=== PATIENT | female | born 1960 | race Caucasian/White ===

== ENCOUNTER → 2016-10-21 | Outpatient (CLI) | payer OTHER ==
[2016-10-21 14:36] LABS: BASO % 0.1 %; BASO ABS # 0.01 K/uL (0-0.2); COMPLETE YES; HEMATOCRIT 42.2 % (37-47); IG% 1.3 %; LYMPH % 28.4 %; LYMPH ABS # 1.96 K/uL (1.2-3.4); MEAN CELL VOLUME 84.1 fL (80-100); MEAN CORPUSCULAR HEMOGLOBIN 29.3 pg (25-34); MEAN CORPUSCULAR HGB CONC 34.8 g/dl (32-36); MEAN PLATELET VOLUME 10.3 fL (7.4-10.4); MONO % 8.4 %; NEUT % 61.8 %; PLATELET COUNT 244 K/uL (130-400); RED BLOOD COUNT 5.02 M/uL (4.2-5.4); WHITE BLOOD COUNT 6.91 K/uL (4.8-10.8)
[2016-10-21 15:59] LABS: LYME DISEASE AB IGG NEG (NEG); LYME DISEASE AB IGM EQUIVOCAL (NEG)
[2016-10-24 23:48] LABS: 18KDIGG BAND NONREACTIVE (NONREACTIVE); 23KDIGG BAND NONREACTIVE (NONREACTIVE); 23KDIGM BAND REACTIVE (NONREACTIVE); 28KDIGG BAND NONREACTIVE (NONREACTIVE); 30KDIGG BAND NONREACTIVE (NONREACTIVE); 39KDIGG BAND NONREACTIVE (NONREACTIVE); 39KDIGM BAND NONREACTIVE (NONREACTIVE); 41KDIGG BAND NONREACTIVE (NONREACTIVE); 41KDIGM BAND NONREACTIVE (NONREACTIVE); 45KDIGG BAND NONREACTIVE (NONREACTIVE); 58KDIGG BAND NONREACTIVE (NONREACTIVE); 66KDIGG BAND NONREACTIVE (NONREACTIVE); 93KDIGG BAND NONREACTIVE (NONREACTIVE)
== END | disposition home or self-care (01) ==
LOC: C.LAB1850 12:26
PROVIDERS: ATTEND Family Medicine
DX: E03.9 Hypothyroidism, unspecified (principal); R53.83 Other fatigue; R10.9 Unspecified abdominal pain

== ENCOUNTER → 2016-10-21 | Outpatient (CLI) | payer OTHER ==
[2016-10-21 17:56] LABS: URINE APPEARANCE CLEAR (CLEAR); URINE BILIRUBIN NEG (NEG); URINE COLOR YELLOW; URINE EPITHELIAL CELL AUTO >30 /lpf (0-5); URINE NITRITE NEG (NEG); URINE SPECIFIC GRAVITY 1.016 (1.000-1.030); UROBILINOGEN NEG (NEG)
[2016-10-21 17:58] LABS: MANUAL MICROSCOPIC REQUIRED? NO; REVIEW REQ? NO
== END | disposition home or self-care (01) ==
LOC: C.LABSPEC 16:38
PROVIDERS: ATTEND Family Medicine
DX: R10.9 Unspecified abdominal pain (principal)

== ENCOUNTER → 2016-12-19 | Outpatient (CLI) | payer OTHER ==
[2016-12-19 16:18] LABS: BLOOD UREA NITROGEN 17 mg/dl (7-18); BUN/CREATININE RATIO 20.5 (10-20); CALCIUM 9.6 mg/dl (8.5-10.1); CARBON DIOXIDE 30 mmol/L (21-32); CHLORIDE 102 mmol/L (98-107); CREATININE 0.82 mg/dl (0.60-1.20); GLUCOSE 90 mg/dl (70-99); POTASSIUM 3.8 mmol/L (3.5-5.1); SODIUM 140 mmol/L (136-145)
[2016-12-19 16:28] LABS: C-REACTIVE PROTEIN 0.68 mg/dl (0-0.29); RHEUMATOID FACTOR < 10.0 U/mL (0-15); THYROID STIMULATING HORMONE 0.276 uIu/ml (0.300-4.500)
[2016-12-19 17:25] LABS: LYME DISEASE AB IGG NEG (NEG)
[2016-12-19 17:26] LABS: LYME DISEASE AB IGM EQUIVOCAL (NEG)
[2016-12-24 09:34] LABS: CYCLIC CITRULLINATED PEPT IGG <16 UNITS (<20)
[2016-12-26 05:12] LABS: 18KDIGG BAND REACTIVE (NONREACTIVE); 23KDIGG BAND NONREACTIVE (NONREACTIVE); 23KDIGM BAND REACTIVE (NONREACTIVE); 28KDIGG BAND NONREACTIVE (NONREACTIVE); 30KDIGG BAND NONREACTIVE (NONREACTIVE); 39KDIGG BAND NONREACTIVE (NONREACTIVE); 39KDIGM BAND NONREACTIVE (NONREACTIVE); 41KDIGG BAND NONREACTIVE (NONREACTIVE); 41KDIGM BAND NONREACTIVE (NONREACTIVE); 45KDIGG BAND NONREACTIVE (NONREACTIVE); 58KDIGG BAND NONREACTIVE (NONREACTIVE); 66KDIGG BAND NONREACTIVE (NONREACTIVE); 93KDIGG BAND NONREACTIVE (NONREACTIVE)
== END | disposition home or self-care (01) ==
LOC: C.LAB1850 14:52
PROVIDERS: ATTEND Family Medicine
DX: I10 Essential (primary) hypertension (principal); E03.9 Hypothyroidism, unspecified; R53.83 Other fatigue; M79.606 Pain in leg, unspecified

== ENCOUNTER → 2017-04-08 | Outpatient (CLI) | payer OTHER ==
[~2017-04-08] MED LIST: AMLO-110 PO; HYDR12.55 PO; LEVO125T5 PO; METO-478 PO; VENL75TA4 PO
== END | disposition home or self-care (01) ==
LOC: C.PAPS 18:10
PROVIDERS: ATTEND Obstetrics & Gynecology
DX: Z12.4 Encounter for screening for malignant neoplasm of cervix (principal)

== ENCOUNTER 2017-09-05 17:34 | Emergency (ER) | payer OTHER ==
[~2017-09-05] VITALS: Ht 157.5 cm; Wt 105.4 kg
[2017-09-05 17:42] VITALS: TEMP 36.9; Ht 157.5 cm; Wt 105.4 kg
[2017-09-05] MEDS ORDERED: KETOROLAC TROMETHAMINE 30 MG/ML VIAL IV STA (18:11)
--- NOTE | 2017-09-05 18:28 | EMERGENCY ROOM VISIT NOTE ---
History Report prepared by Uday: Sommer Blevins Under the Supervision of: Dr. David Chavez M.D. First contact with patient: 18:05 Chief Complaint: ARM PAIN Stated Complaint: L ARM PAIN History of Present Illness The patient is a 56 year old female who presents to the Emergency Room with complaints of constant left arm pain beginning 1 month ago. The patient states that 2 weeks ago her pain worsened and in the last 2 days it has worsened further. She reports that she has not seen her PCP or been evaluated for the pain. She notes that 1 month ago she had a flu shot, mammogram, and CPR certification that may have triggered her pain. The patient states that her pain is worsened with movement in certain directions. She denies any chest pain , shortness of breath, cough, congestion, fever, chills, nausea, vomiting. The patient states that she takes Advil every 4 hours and last took it last night. She denies any cardiac history and notes that she is a former smoker. The patient states that she has no history of blood clots. Source of History: patient Onset: 1 month ago Position: arm (left) Timing: constant Modifying Factors (Worsening): movement Associated Symptoms: No fevers, No chills, No cough, No chest pain, No SOB, No nausea, No vomiting Review of Systems See HPI for pertinent positives and negatives. A total of ten systems were reviewed and were otherwise negative. Past Medical & Surgical Medical Problems: (1) HTN (hypertension) Family History No pertinent family history stated. Social History Smoking Status: Never Smoker Marital Status: Housing Status: lives with family Current/Historical Medications Scheduled Amlodipine (Norvasc), 5 MG PO QAM Hydrochlorothiazide (Hydrochlorothiazide), 12.5 MG PO QAM Levothyroxine Sodium (Levothyroxine Sodium), 125 MCG PO QAM Metoprolol Succinate (Toprol Xl), 25 MG PO QPM Venlafaxine Hcl (Effexor), 75 MG PO QPM Allergies Coded Allergies: No Known Allergies (Unverified , 09/05/17) Physical Exam Vital Signs Date Time Temp Pulse Resp B/P (MAP) Pulse Ox O2 Delivery O2 Flow Rate FiO2 09/05/17 21:50 79 18 166/103 97 09/05/17 19:48 78 17 150/92 94 09/05/17 19:11 66 09/05/17 18:49 96 09/05/17 17:42 36.9 93 18 156/104 92 Room Air Physical Exam GENERAL: Awake, alert, well-appearing, in no distress HENT: Normocephalic, atraumatic. Oropharynx unremarkable. EYES: Normal conjunctiva. Sclera non-icteric. NECK: Supple. No nuchal rigidity. FROM. No JVD. RESPIRATORY: Clear to auscultation. CARDIAC: Regular rate, normal rhythm. Extremities warm and well perfused. Pulses equal. ABDOMEN: Soft, non-distended. No tenderness to palpation. No rebound or guarding. No masses. RECTAL: Deferred. MUSCULOSKELETAL: Chest examination reveals no tenderness. The back is symmetrical on inspection without obvious abnormality. There is no CVA tenderness to palpation. No joint edema. mild tenderness to the left lateral deltoid, along the supraspinatus tendon she has increased pain with active ROM against resistance and minimal pain with passive ROM, distal PMS intact. LOWER EXTREMITIES: Calves are equal size bilaterally and non-tender. No edema. No discoloration. NEURO: Normal sensorium. No sensory or motor deficits noted. SKIN: No rash or jaundice noted. Medical Decision & Procedures ER Provider Diagnostic Interpretation: Radiology results as stated below per my review and radiologist interpretation: LEFT UPPER EXTREMITY VENOUS DOPPLER FINDINGS: The left internal jugular vein is patent. There is normal flow within the left subclavian vein. There is normal flow and compressibility within the left axillary, basilic, brachial, radial, ulnar, and visualized cephalic veins. IMPRESSION: No DVT within the left upper extremity. Electronically signed by: Gary Hickey M.D. 09/05/2017 9:02 PM Dictated Date/Time: 09/05/2017 9:00 PM CHEST ONE VIEW PORTABLE FINDINGS: The lungs are clear. Cardiac silhouette is borderline enlarged. No pleural effusions. No pneumothorax. IMPRESSION: Borderline enlargement cardiac silhouette. Otherwise, no acute process within the chest. Electronically signed by: Gary Hickey M.D. 09/05/2017 7:07 PM Dictated Date/Time: 09/05/2017 7:06 PM LEFT SHOULDER 3 VIEWS FINDINGS: There is no fracture or dislocation. A few small foci of calcification the distal supraspinatus tendon. The left clavicle is intact. IMPRESSION: No fracture or dislocation within the left shoulder. Supraspinatus calcific tendinitis. Electronically signed by: Gary Hickey M.D. 09/05/2017 7:44 PM Dictated Date/Time: 09/05/2017 7:43 PM Laboratory Results 09/05/17 18:40 Red Blood Count 4.92, Mean Corpuscular Volume 84.8, Mean Corpuscular Hemoglobin 30.1, Mean Corpuscular Hemoglobin Concent 35.5, Mean Platelet Volume 9.7, Neutrophils (%) (Auto) 59.6, Lymphocytes (%) (Auto) 28.4, Monocytes (%) (Auto) 10.0, Eosinophils (%) (Auto) 0.1, Basophils (%) (Auto) 0.1, Neutrophils # (Auto ) 5.18, Lymphocytes # (Auto) 2.47, Monocytes # (Auto) 0.87, Eosinophils # (Auto ) 0.01, Basophils # (Auto) 0.01 09/05/17 18:40 Test 09/05/17 18:40 White Blood Count 8.70 K/uL (4.8-10.8) Red Blood Count 4.92 M/uL (4.2-5.4) Hemoglobin 14.8 g/dL (12.0-16.0) Hematocrit 41.7 % (37-47) Mean Corpuscular Volume 84.8 fL (80-100) Mean Corpuscular Hemoglobin 30.1 pg (25-34) Mean Corpuscular Hemoglobin Concent 35.5 g/dl (32-36) Platelet Count 232 K/uL (130-400) Mean Platelet Volume 9.7 fL (7.4-10.4) Neutrophils (%) (Auto) 59.6 % Lymphocytes (%) (Auto) 28.4 % Monocytes (%) (Auto) 10.0 % Eosinophils (%) (Auto) 0.1 % Basophils (%) (Auto) 0.1 % Neutrophils # (Auto) 5.18 K/uL (1.4-6.5) Lymphocytes # (Auto) 2.47 K/uL (1.2-3.4) Monocytes # (Auto) 0.87 K/uL (0.11-0.59) Eosinophils # (Auto) 0.01 K/uL (0-0.5) Basophils # (Auto) 0.01 K/uL (0-0.2) RDW Standard Deviation 40.3 fL (36.4-46.3) RDW Coefficient of Variation 13.3 % (11.5-14.5) Immature Granulocyte % (Auto) 1.8 % Immature Granulocyte # (Auto) 0.16 K/uL (0.00-0.02) Anion Gap 8.0 mmol/L (3-11) Est Creatinine Clear Calc Drug Dose 111.5 ml/min Estimated GFR () 115.8 Estimated GFR (Non- 99.9 BUN/Creatinine Ratio 18.8 (10-20) Calcium Level 9.0 mg/dl (8.5-10.1) Total Bilirubin 0.6 mg/dl (0.2-1) Direct Bilirubin 0.1 mg/dl (0-0.2) Aspartate Amino Transf (AST/SGOT) 21 U/L (15-37) Alanine Aminotransferase (ALT/SGPT) 35 U/L (12-78) Alkaline Phosphatase 95 U/L (45-117) Troponin I < 0.015 ng/ml (0-0.045) Total Protein 7.8 gm/dl (6.4-8.2) Albumin 3.6 gm/dl (3.4-5.0) Lipase 166 U/L (73-393) Laboratory results reviewed by me Medications Administered Medications (Trade) Dose Ordered Sig/Fawad Route Start Time Stop Time Status Last Admin Dose Admin Ketorolac Tromethamine (Toradol Inj) 30 mg NOW STAT IV 09/05/17 18:11 09/05/17 18:18 DC 09/05/17 18:11 30 MG ECG Indication: other (arm pain) Rate (beats per minute): 81 Rhythm: normal sinus Findings: no acute ischemic change, other (normal intervals) ED Course 1804: The patient was evaluated in room A4. A complete history and physical exam was performed. 1810: Toradol Inj 30mg IV. 2140: I reevaluated and updated the patient. 2151: I reevaluated the patient. Discussed results and discharge instructions: She verbalized understanding and agreement. The patient is ready for discharge. Medical Decision I reviewed the patient's past medical history, medications, and the nursing notes as described above. The patient's presentation and history were concerning for ACS, musculoskeletal strain, DVT, arthritis. The patient is a 56 y/o woman with a pmhx of HTN, DM who presents to the ED with left shoulder arm pain constant for the last month but worsening over the past week per HPI. On arrival the patient is in NAD, AFVSS. On exam patient has pain with active ROM and minimal with passive ROM. Mild ttp over lateral aspect of deltoid along supraspinatus. EKg unremarkable. Trop negative in the setting of constant sx. Labs otherwise unremarkable. Duplex negative for DVT. Shoulder Xray with calcific tendinitis likely explains patient's sx. Plan for sling for comfort and pcp f/u. Findings and plan for follow-up reviewed with patient. Patient agreeable and d/c'd per discharge instructions. Medication Reconcilliation Current Medication List: was personally reviewed by me Blood Pressure Screening Patient's blood pressure: Elevated blood pressure Blood pressure disposition: Elevated BP felt to be situational Impression Primary Impression: Calcific tendinitis of left shoulder Scribe Attestation The scribe's documentation has been prepared under my direction and personally reviewed by me in its entirety. I confirm that the note above accurately reflects all work, treatment, procedures, and medical decision making performed by me. Departure Information Dispostion Home / Self-Care Referrals Janeth Coello MD (PCP) Patient Instructions ED Tendinitis Calcific, My [facility] Additional Instructions Please follow up with your primary care physician in the next 1-3 days for re- evaluation. You were found to have calcific tendinitis. Otherwise, your exam, EKG, chest xray, ultrasound, and lab results did not show signs of an emergent condition at this time. Ibuprofen and Acetaminophen for pain as needed. Return to the emergency department for worsening symptoms as described in the accompanying instructions.
[2017-09-05] MEDS ORDERED: LEVO125T5 PO (18:30)
[2017-09-05] MEDS ORDERED: AMLO-110 PO (18:30)
[2017-09-05] MEDS ORDERED: METO-478 PO (18:30)
[2017-09-05] MEDS ORDERED: VENL75TA4 PO (18:30)
[2017-09-05] MEDS ORDERED: HYDR12.55 PO (18:30)
[2017-09-05 18:49] VITALS: O2SAT 96
[2017-09-05 18:55] LABS: BASO % 0.1 %; BASO ABS # 0.01 K/uL (0-0.2); COMPLETE YES; EOS % 0.1 %; HEMATOCRIT 41.7 % (37-47); IG% 1.8 %; LYMPH % 28.4 %; LYMPH ABS # 2.47 K/uL (1.2-3.4); MEAN CELL VOLUME 84.8 fL (80-100); MEAN CORPUSCULAR HEMOGLOBIN 30.1 pg (25-34); MEAN CORPUSCULAR HGB CONC 35.5 g/dl (32-36); MEAN PLATELET VOLUME 9.7 fL (7.4-10.4); NEUT % 59.6 %; PLATELET COUNT 232 K/uL (130-400); RED BLOOD COUNT 4.92 M/uL (4.2-5.4)
--- NOTE | 2017-09-05 19:08 | DIAGNOSTIC IMAGING REPORT ---
CHEST ONE VIEW PORTABLE HISTORY: Atypical CHEST PAIN COMPARISON: None. FINDINGS: The lungs are clear. Cardiac silhouette is borderline enlarged. No pleural effusions. No pneumothorax. IMPRESSION: Borderline enlargement cardiac silhouette. Otherwise, no acute process within the chest. Electronically signed by: Gary Hickey M.D. 09/05/2017 7:07 PM Dictated Date/Time: 09/05/2017 7:06 PM
[2017-09-05 19:12] LABS: ALT/SGPT 35 U/L (12-78); AST/SGOT 21 U/L (15-37); BLOOD UREA NITROGEN 12 mg/dl (7-18); BUN/CREATININE RATIO 18.8 (10-20); CARBON DIOXIDE 27 mmol/L (21-32); CHLORIDE 104 mmol/L (98-107); CREATININE 0.65 mg/dl (0.60-1.20); GLUCOSE 99 mg/dl (70-99); POTASSIUM 3.5 mmol/L (3.5-5.1); SODIUM 139 mmol/L (136-145)
[2017-09-05 19:17] LABS: ALKALINE PHOSPHATASE 95 U/L (45-117)
--- NOTE | 2017-09-05 19:46 | DIAGNOSTIC IMAGING REPORT ---
LEFT SHOULDER 3 VIEWS HISTORY: left shoulder pain COMPARISON: None. FINDINGS: There is no fracture or dislocation. A few small foci of calcification the distal supraspinatus tendon. The left clavicle is intact. IMPRESSION: No fracture or dislocation within the left shoulder. Supraspinatus calcific tendinitis. Electronically signed by: Gary Hickey M.D. 09/05/2017 7:44 PM Dictated Date/Time: 09/05/2017 7:43 PM
--- NOTE | 2017-09-05 21:03 | DIAGNOSTIC IMAGING REPORT ---
LEFT UPPER EXTREMITY VENOUS DOPPLER HISTORY: left upper arm pain COMPARISON STUDY: None. FINDINGS: The left internal jugular vein is patent. There is normal flow within the left subclavian vein. There is normal flow and compressibility within the left axillary, basilic, brachial, radial, ulnar, and visualized cephalic veins. IMPRESSION: No DVT within the left upper extremity. Electronically signed by: Gary Hickey M.D. 09/05/2017 9:02 PM Dictated Date/Time: 09/05/2017 9:00 PM
[2017-09-05 21:50] VITALS: BP 166/103; PULSE 79; O2SAT 97
== END 2017-09-05 21:50 | disposition home or self-care (01) ==
LOC: C.EDB 17:35 → C.EDA 21:50
DX: M75.32 Calcific tendinitis of left shoulder (principal); I10 Essential (primary) hypertension; Z79.899 Other long term (current) drug therapy

== ENCOUNTER → 2018-01-12 | Outpatient (CLI) | payer OTHER | END | disposition home or self-care (01) | LOC: C.LAB1850 07:00 | PROVIDERS: ATTEND Family Medicine | DX: I10 Essential (primary) hypertension (principal); E03.9 Hypothyroidism, unspecified; R73.01 Impaired fasting glucose; E55.9 Vitamin D deficiency, unspecified ==

== ENCOUNTER → 2018-05-27 | Outpatient (CLI) | payer OTHER ==
[~2018-05-27] MED LIST changes: -AMLO-110 PO; +AMLO5TAB3 PO
[2018-05-27 10:35] LABS: BLOOD UREA NITROGEN 16 mg/dl (7-18); CALCIUM 9.2 mg/dl (8.5-10.1); CARBON DIOXIDE 25 mmol/L (21-32); CHOLESTEROL 163 mg/dl (0-200); CREATININE 0.74 mg/dl (0.60-1.20); GLUCOSE 138 mg/dl (70-99); LDL CHOLESTEROL CALCULATED 83 mg/dl; POTASSIUM 3.7 mmol/L (3.5-5.1); SODIUM 137 mmol/L (136-145)
== END | disposition home or self-care (01) ==
LOC: C.LAB1850 07:56
PROVIDERS: ATTEND Family Medicine
DX: I10 Essential (primary) hypertension (principal); E03.9 Hypothyroidism, unspecified; R73.01 Impaired fasting glucose; E55.9 Vitamin D deficiency, unspecified

== ENCOUNTER 2021-02-19 11:24 | Inpatient (IN) ==
[2021-02-19 12:11] LABS: Basophils # (auto) 0.03 K/uL (0-0.2); Basophils % (auto) 0.3 %; Eosinophils # (auto) 0.18 K/uL (0-0.5); Eosinophils % (auto) 1.6 %; Hematocrit (blood only) 34.9 % (37-47); Hemoglobin 11.8 g/dL (12.0-16.0); Immature Granulocytes # (auto) 0.28 K/uL (0.00-0.02); Immature Granulocytes % (auto) 2.4 %; Lymphocytes % (auto) 7.8 %; Mean Corpuscular Hemoglobin 28.9 pg (25-34); Mean Corpuscular Hgb Conc 33.8 g/dL (32-36); Mean Corpuscular Volume 85.3 fL (80-100); Mean Platelet Volume 9.3 fL (7.4-10.4); Monocytes # (auto) 0.42 K/uL (0.11-0.59); Monocytes % (auto) 3.6 %; Neutrophils # (auto) 9.73 K/uL (1.4-6.5); Neutrophils % (auto) 84.3 %; Platelet Count 451 K/uL (130-400); RDW Coefficient of Variation 13.4 % (11.5-14.5); RDW Standard Deviation 41.8 fL (36.4-46.3); Red Blood Count 4.09 M/uL (4.2-5.4); White Blood Count 11.54 K/uL (4.8-10.8)
[2021-02-19] MEDS ORDERED: PIPERACILL/TAZOBAC CONSULT ACTIVE PRN (12:15)
--- NOTE | 2021-02-19 12:17 | History & Physical Report ---
Date of Service February 19, 2021 Assessment & Plan (1) Post-operative pain: (2) Pelvic pain: (3) Abnormal finding on imaging: Postop 3 wks with continued collection at cuff, measured by us today to be 7.9 x 5 x 6cm by US Directly at cuff. Given temps, unwell, despite po antibiotics, I feel it is time to rec drainage of collection. Can opt to do here with EUA as I do not feel patient with tolerate office procedure and she agrees. Alternative to send to tertiary care center to see if IR can help with drainage. Given location I do feel access is possible vaginally and ultimately pt elects to stay here to have done. We would then cont iv abx and look for improvement. May need future transfer to tertiary care or more treatment. Given recent CT, i do not suspect bowel perforation or urinary tract injury or worsening picture for urinary tract. I supect her sx are due to undrained abscess that needs drainage. Has been on outpt oral antibiotics and not responding. Patient verbalized understanding. I do not feel repeat CT would be useful at this point given we already have location of collection and she is not exhibiting signs or sx that more is going on in upper belly, with bowels etc. She agrees. She does not want CT. Will send to hospital and d/w Dr. Lancaster who is senior formulation scientist. Plan to get labs, vs and keep NPO but planned EUA. Patient agreeable. I suspect with plan drainage of cuff abscess under anesthesia and see if US can be present for guidance. Admission and Anticipated Discharge Date Admission Date: February 19, 2021 History of Present Illness Chief Complaint: fever, pain Primary Care Provider: Aram Howard MD 60yo with cc of postoperative state from TL 3wks ago with fever and vaginal pain and nausea. Patient was seen in office this am. Her course includes TLH, requiring indwelling left ureteral stent due to incidental ureteral stricture found at time of cystoscopy done for h/o TLH. The stent was irriating to patient such that she presented to ER about 10d postop. She had urine studies, labs with wbc 15, 000 and given antibiotics and sent home. I saw her at 2wks postop(3d after ER visit) still not feeling well. Low grade temps and had wbc 10, 000 and bothered by bladder pain and we planned CT scan. Was seeing urology for followup the next day with hopes to get stent removed to see if that improved her bladder pressure and flank pain. She did get stent removed and had cysto with Dr. Staton on 02/14/21 and by next day was feeling better. She still had some flank soreness but the bladder pressure was gone and did not feel ill. She had a CT that am, per the plan 2d prior which did show a cuff collection suspicious for abscess but she was clinically feeling better. No vaginal drainage. She was afebrile. She had been examined on 02/13 with no vaginal discharge or drainage and no significant cuff tenderness. After counseling about all, including collaborating with radiology and urology, options at that time were to drain ? collection vs. cont antibiotics and see how she did. She opted for latter and on02/16/21 she reported doing well, was taking her temp bid and no fever and no pain or pressure. Voiding, eating well, did not like nausea with dosing of her antibiotics but otherwise ok. Plan was for repeat labs this am and visit this pm in office. Unfortunately early this am, called office with above cc. She did not have labs. She was advised to come immediately to office for evaluation. She really wanted to avoid the ER if possible due to past experience not being good with evaluating doctor in ER. She notes began feeling unwell friday afternoon. She began with nausea and anorexia since then, last eating noon yesterday. No vomiting. +flatus. feels thirsty. denies vaginal drainage, some pink spotting. Has pressure or pain in pelvis and this am temp 102F. She is voiding well, no flank pain. Can ambulate normally, drove herself here and gets on and off table with no issue. Temp in office was 99F and no recent anti-pyretic meds. All Active Problems (Updated 02/19/21 @ 12:17 by Aure Rollins MD, FACOG) Abnormal finding on imaging Pelvic pain Sensation of pressure in bladder area Post-operative pain UTI (urinary tract infection) (Acute) Encounter for pre-operative examination Dysplasia of cervix, low grade (BOUCHRA 1) HTN (hypertension) (Chronic) Health care maintenance Vitamin D deficiency disease (Acute) Recurrent periodic urticaria (Acute) Premature ventricular contractions (Acute) Metabolic disorder (Acute) Impaired fasting glucose (Acute) Hypothyroidism (Acute) Kidney cysts Liver cyst Calcification of coronary artery (Acute) Gout Hyperglycemia Left foot pain Swelling of left foot Subchondral cyst Abnormal finding on imaging Gait disturbance Suspected 2019 novel coronavirus infection Encounter for annual routine gynecological examination Low back pain High grade squamous intraepithelial cervical dysplasia Family history of uterine fibroid Allergies Allergy/AdvReac Type Severity Reaction Status Date / Time No Known Allergies Allergy Verified 02/19/21 09:53 Home Medications Medication Instructions Recorded Confirmed Type trazodone 50 mg tablet 50 mg PO HS PRN #90 tab 02/21/20 02/19/21 Rx bupropion HCl 150 mg 24 hr tablet, 150 mg PO QAM #90 tab 08/14/20 02/19/21 Rx extended release allopurinol 100 mg PO QAM 01/12/21 02/19/21 History amlodipine 2.5 mg PO QAM 01/12/21 02/19/21 History hydrochlorothiazide 25 mg PO QAM 01/12/21 02/19/21 History levothyroxine 150 mcg PO DAILY 01/12/21 02/19/21 History metoprolol succinate 25 mg PO HS 01/12/21 02/19/21 History oxycodone-acetaminophen [Percocet] 1 tab PO Q4H PRN #14 tab 01/29/21 02/19/21 Rx ciprofloxacin HCl 500 mg tablet 500 mg PO BID #28 tab 02/15/21 02/19/21 Rx ondansetron HCl 4 mg tablet 4 mg PO Q8H PRN #30 tab 02/15/21 02/19/21 Rx meloxicam 7.5 mg tablet 7.5 mg PO DAILY PRN #30 tab 02/19/21 Rx Patient History Medical History (Updated 02/19/21 @ 15:15 by Gary Wade MD) Anxiety Depression Gout History of COVID-19 09/08/2020 tested [facility], SOB muscle body ache, fatigue, cough, headaches, hair loss. Hypertension Hypothyroidism Morbid obesity Osteoarthritis Prediabetes watches diet PVC (premature ventricular contraction) takes metoprolol Surgical History H/O tooth extraction wisdom teeth History of tubal ligation Hx of cholecystectomy Family History Brother Stroke Diabetes Mother Diabetes Hypertension Rheumatoid arthritis Stroke Father Pulmonary embolism Denies family history of Ovarian cancer Prostate cancer Myocardial infarction Breast cancer Colorectal cancer Social History Smoking Status: Former smoker Smoking End Date: 20 years ago; Number of Years Since Quit: 18; Second Hand Exposure: No; Do You Dip or Chew Tobacco: No; Tobacco Cessation Education Requested by Patient: No (N/A) Hx Alcohol Use: No Hx Substance Use: No Preferred Language: Cymraes Communication Ability: Effective Visual Impairment: No Limitations Hearing Ability: Normal Ticket Scheduler Required: No Beliefs That Will Affect Care: None marital status: Current Living Situation: Spouse current occupational status: employed 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, [employer] Other Information That Helps Us Care for You: No Feels Safe at Home: Yes Safety Concerns: Feels Safe At This Time Dental Care, Regularly: Yes Physical Activity Frequency: 1-2 Times per Week Seatbelt Use: always Assistive Devices: None Review of Systems + fever and + malaise + nausea; no change in stools no dysuria, no urinary frequency and no vaginal discharge Physical Exam Constitutional: WD/WN, vitals as above Gastrointestinal (Abdomen): Inspection/Auscultation: + abdominal surgical incision (well healed) Percussion/Palpation: abdomen soft; abdomen nontender and no guarding Neurologic: grossly normal Psychiatric: A+Ox3, euthymic affect Genitourinary: normal external appearance; no CVA tenderness Speculum/Bim anual Exam: normal appearance of the vagina (no drainage, cuff intact. ) vagina slightly tender at cuff by palpation and tissue indurated. Coding Level of Care Code None Diagnoses Post-operative pain G89.18 Pelvic pain R10.2 Abnormal finding on imaging R93.89
[2021-02-19] MEDS ORDERED: PATIENT'S HEIGHT AND/OR WEIGHT NEEDED SCH (12:30)
[2021-02-19 12:45] LABS: Alanine Aminotransferase 33 U/L (12-78); Albumin Level 2.6 gm/dl (3.4-5.0); Aspartate Aminotransferase 44 U/L (15-37); BUN Creatinine Ratio 13.6 (10-20); Blood Urea Nitrogen 13 mg/dl (7-18); Calcium 9.6 mg/dl (8.5-10.1); Carbon Dioxide 22 mmol/L (21-32); Chloride 103 mmol/L (98-107); Est GFR (African American) 72.3; Est GFR (Non-African American) 62.4; Glucose 114 mg/dl (70-99); Potassium 3.6 mmol/L (3.5-5.1); Sodium 135 mmol/L (136-145)
[2021-02-19] MEDS ORDERED: PIPERACILLIN/TAZOBACTAM 4.5 GM in DEXTROSE 5% 100 ML IV ONE (12:45)
[2021-02-19] MEDS ORDERED: KETOROLAC 30 MG/ML VIAL IV PRN (12:46)
[2021-02-19 12:48] LABS: Albumin Globulin Ratio 0.4 (0.9-2); Alkaline Phosphatase 217 U/L (45-117); Bilirubin,Total 0.6 mg/dl (0.2-1); Globulin 5.8 gm/dl (2.5-4.0); Total Protein 8.4 gm/dl (6.4-8.2)
[2021-02-19] MEDS: ONDANSETRON INJ 2 MG/ML 2 ML VIAL IV PRN ×2 (13:11→23:11)
[2021-02-19] MEDS: ACETAMINOPHEN 500 MG TAB PO PRN ×2 (13:12→23:32)
[2021-02-19 13:15] LABS: Appearance Urine Clear (Clear); Bacteria Urine Automated Negative (Negative); Bilirubin Urine Negative (Negative); Blood Urine 3+ (Negative); Color Urine Dark Yellow; Epithelial Cell Urine Auto >30 /lpf (0-5); Glucose Urine UA Negative (Negative); Ketones Urine 3+ (Negative); Leukocyte Esterase Urine Trace (Negative); Nitrite Urine Negative (Negative); Protein Urine 1+ (Negative); RBC Urine Automated >30 /hpf (0-4); Specific Gravity Urine 1.024 (1.000-1.030); Urobilinogen Urine Negative (Negative); WBC Urine Automated >30 /hpf (0-5)
[2021-02-19] MEDS: SODIUM CHLORIDE 0.9% 1000ML 1,000 ML IV SCH (13:16)
[2021-02-19] MEDS: amLODIPine BESYLATE 5 MG TAB PO SCH (13:30)
--- NOTE | 2021-02-19 14:32 | Gynecologic Progress Note ---
Date of Service February 19, 2021 Assessment & Plan Admission and Anticipated Discharge Date Admission Date: February 19, 2021 Subjective Patient admitted via direct-admit from office after seeing Dr Rollins in office today. I discussed proposed plan of care with patient: surgical exam under anesthesia, drainage of vaginal cuff abscess. Will plan for ultrasound guidance and will plan to likely pack abscess area afterwards. She is agreeable to procedure, and we reviewed consent line by line. She is aware of the possible risk of damage to surrounding organs/tissue, need for further surgery. IV access obtained, IV fluids, NPO. IV Zosyn for broad-spectrum coverage. Blood cultures, urine culture ordered. While patient has already been on antibiotics, since she is also presenting with fever, and fever is likely related to her cuff abscess, will look for these sources of infection also. CBC, CMP. IV toradol and one dose PO tylenol for pain and fever. Patient would like to avoid narcotics, as she finds them constipating. I discussed her home meds with anesthesia, will give amlodipine, as she did not take this today yet and BP on arrival was elevated. Hold other home meds for now. Results & Data ([facility]) Vital Signs (Past 12 Hours) Vital Signs Temp Pulse Pulse Pulse Resp BP BP 02/19/21 14:05 38.2 C H 90 18 125/75 02/19/21 12:14 39.1 C H 96 H 106 H 24 179/95 H Pulse Ox 02/19/21 14:05 94 02/19/21 12:14 93
[2021-02-19] MEDS ORDERED: PROPOFOL IV EMULSION 10 MG/ML 20 ML VIAL IV ONE (15:34)
[2021-02-19] MEDS ORDERED: SUCCINYLCHOLINE CHLORIDE 20 MG/ML 10 ML VIAL IV ONE (15:34)
[2021-02-19] MEDS ORDERED: LIDOCAINE 2% 2 ML VIAL/AMP(20MG/ML) INFIL ONE (15:34)
[2021-02-19] MEDS ORDERED: ROCURONIUM BROMIDE 10 MG/ML 5 ML VIAL IV ONE (15:34)
[2021-02-19] MEDS ORDERED: fentaNYL citrate 100 MCG/2 ML VIAL ONE ×2 (15:35→16:27)
[2021-02-19] MEDS ORDERED: MIDAZOLAM HCL 1 MG/ML 2ML VIAL ONE (15:38)
[2021-02-19] MEDS ORDERED: PHENYLEPHRINE HCL 10 MG/ML VIAL ONE (15:43)
[2021-02-19] MEDS ORDERED: ePHEDrine sulfate 50 MG/ML AMP ONE (15:43)
[2021-02-19] MEDS ORDERED: PREMARIN VAG CRM 14 APPLN/30 GM TUBE ONE (16:02)
--- NOTE | 2021-02-19 16:11 | Anesthesiology Consultation ---
Date of Service February 19, 2021 Assessment & Plan (1) Encounter for pre-operative examination: Chart Review Chart Review: Acceptable Risk for Surgery and Patient NOT seen in Pre Admission Testing Consults Requested none History Surgery Operation Date: 02/19/21 09:20 Proposed Procedures p Evaluation Under Anesthesia, Drainage of Vaginal Cuff Abscess - Tanya Lancaster DO Height/Weight Height: 5 ft 2 in Weight: 99.55 kg Allergies Allergy/AdvReac Type Severity Reaction Status Date / Time No Known Allergies Allergy Verified 02/19/21 09:53 Medications Home Medications Medication Instructions Recorded Confirmed Last Taken trazodone 50 mg tablet 50 mg PO HS PRN #90 tab 02/21/20 02/19/21 01/28/21 bupropion HCl 150 mg 24 hr tablet, 150 mg PO QAM #90 tab 08/14/20 02/19/21 02/18/21 19:00 extended release 150 MG allopurinol 100 mg PO QAM 01/12/21 02/19/21 02/18/21 19:00 100 mg amlodipine 2.5 mg PO QAM 01/12/21 02/19/21 02/18/21 19:00 2.5 mg hydrochlorothiazide 25 mg PO QAM 01/12/21 02/19/21 01/28/21 levothyroxine 150 mcg PO DAILY 01/12/21 02/19/21 02/18/21 19:00 150 mcg metoprolol succinate 25 mg PO HS 01/12/21 02/19/21 02/18/21 19:00 oxycodone-acetaminophen [Percocet] 1 tab PO Q4H PRN #14 tab 01/29/21 02/19/21 Unknown ciprofloxacin HCl 500 mg tablet 500 mg PO BID #28 tab 02/15/21 02/19/21 02/18/21 19:00 500 mg ondansetron HCl 4 mg tablet 4 mg PO Q8H PRN #30 tab 02/15/21 02/19/21 Unknown meloxicam 7.5 mg tablet 7.5 mg PO DAILY PRN #30 tab 02/19/21 Unknown Active Medications Generic Name Dose Route Start Last Admin Trade Name Freq PRN Reason Stop Dose Admin Acetaminophen 1,000 mg 02/19/21 12:46 02/19/21 13:12 Acetaminophen 500 Mg Tab PO 03/21/21 12:45 1,000 mg Q6H PRN Administration Pain Amlodipine Besylate 2.5 mg 02/19/21 13:00 02/19/21 13:30 Amlodipine Besylate 5 Mg Tab PO 03/21/21 12:59 2.5 mg QAM JU Administration Sodium Chloride 1,000 mls @ 125 mls/hr 02/19/21 12:15 02/19/21 15:35 Nss 1000ml IV 03/21/21 12:14 0 mls/hr .Q8H JU Infusion Ketorolac Tromethamine 30 mg 02/19/21 12:46 02/19/21 13:11 Ketorolac 30 Mg/Ml Vial IV 02/24/21 12:45 30 mg Q6H PRN Administration Pain Ondansetron HCl 4 mg 02/19/21 12:46 02/19/21 13:11 Ondansetron Inj 2 Mg/Ml 2 Ml Vial IV 03/21/21 12:45 4 mg Q6H PRN Administration Nausea And Vomiting NPO Date Last Intake of Fluids: 02/18/21 Time Last Intake of Fluids: 21:00 Date Last Intake of Solids: 02/18/21 Time Last Intake of Solids: 12:00 Past Medical History Medical History Anxiety Depression Gout History of COVID-19 09/08/2020 tested [facility], SOB muscle body ache, fatigue, cough, headaches, hair loss. Hypertension Hypothyroidism Morbid obesity Osteoarthritis Prediabetes watches diet PVC (premature ventricular contraction) takes metoprolol Past Family History Family History Brother Stroke Diabetes Mother Diabetes Hypertension Rheumatoid arthritis Stroke Father Pulmonary embolism Denies family history of Ovarian cancer Prostate cancer Myocardial infarction Breast cancer Colorectal cancer Past Surgical History Surgical History H/O tooth extraction wisdom teeth History of tubal ligation Hx of cholecystectomy Social History Smoking Status: Former smoker tobacco type: cigarettes Do You Dip or Chew Tobacco: No Smoking End Date: 20 years ago Hx Alcohol Use: No Hx Substance Use: No substance use type: does not use Physical Exam Vital Signs Last Vital Signs Temp 37.7 C H 02/19/21 15:45 Pulse 81 02/19/21 15:45 Resp 18 02/19/21 15:45 BP 114/71 02/19/21 15:45 Pulse Ox 95 02/19/21 15:45 Testing Laboratory Results 02/19/21 11:58 02/19/21 11:58 Urine Color Dark Yellow 02/19/21 13:00 Urine Appearance Clear (Clear) 02/19/21 13:00 Urine pH 5.0 (4.5-7.5) 02/19/21 13:00 Ur Specific [place] 1.024 (1.000-1.030) 02/19/21 13:00 Urine Protein 1+ (Negative) H 02/19/21 13:00 Urine Glucose (UA) Negative (Negative) 02/19/21 13:00 Urine Ketones 3+ (Negative) H 02/19/21 13:00 Urine Nitrite Negative (Negative) 02/19/21 13:00 Ur Leukocyte Esterase Trace (Negative) H 02/19/21 13:00 Urine WBC (Auto) >30 /hpf (0-5) H 02/19/21 13:00 Urine RBC (Auto) >30 /hpf (0-4) H 02/19/21 13:00 U Hyaline Cast (Auto) 1-5 /lpf (0-5) 02/19/21 13:00 U Epithel Cells (Auto) >30 /lpf (0-5) H 02/19/21 13:00 Urine Bacteria (Auto) Negative (Negative) 02/19/21 13:00
[2021-02-19] MEDS ORDERED: ONDANSETRON INJ 2 MG/ML 2 ML VIAL IV PRN (16:13)
[2021-02-19] MEDS ORDERED: ATROPINE SULFATE 0.1 MG/ML 10ML SYR IV PRN (16:13)
[2021-02-19] MEDS ORDERED: ePHEDrine sulfate 50 MG/ML AMP IV PRN (16:13)
[2021-02-19] MEDS ORDERED: PHENYLEPHRINE 100MCG/ML 5ML SYR IV PRN (16:13)
[2021-02-19] MEDS ORDERED: LABETALOL HCL IV 5 MG/ML 20ML IV PRN (16:13)
[2021-02-19] MEDS ORDERED: MEPERIDINE HCL 25 MG/ML CARP/VIAL IV PRN (16:13)
[2021-02-19] MEDS ORDERED: fentaNYL citrate 100 MCG/2 ML VIAL IV PRN (16:13)
[2021-02-19] MEDS ORDERED: HYDROmorphone INJ 1 MG/ML SYRINGE IV PRN (16:13)
--- NOTE | 2021-02-19 17:08 | Post Operative Brief Note ---
PG Immediate Post Op with CF Date of Surgery February 19, 2021 Pre & Post Diagnosis Operation Date: 02/19/21 09:20 Pre-Op Diagnosis: Vaginal Cuff Abscess Post-Op Diagnosis: Vaginal Cuff Abscess, hematoma I identified the patient and participated in the time-out.: Yes Procedure Operation Date: 02/19/21 09:20 Actual Procedures p Evaluation Under Anesthesia, Drainage of Vaginal Cuff Abscess/Hematoma, Reapproximation of lateral vaginal cuff. Ultrasound guidance. (Not Applicable) - Aure Rollins Md Surgeon Aure Rollins MD, FACOG Electrophysiologist Irlanda Lancaster. Estimated Blood Loss 1 Findings Consistent with Post-Op Diagnosis (drainage of dark bloody fluid, u/s guidance with smaller collection at end of procedure. cuff about 2cm open. ) Specimens Specimen Description: Culture 1: Pelvic Abscess Anesthesia Type General Complications none Disposition Accompanied Patient To Recovery: No Disposition: Recovery Room
--- NOTE | 2021-02-19 17:22 | Ultrasound Report ---
US guide intraoperative CLINICAL HISTORY: EUA VAGINAL CUFF COMPARISON STUDY: CT of the abdomen and pelvis February 15, 2021. TECHNIQUE: Ultrasound guidance was provided by the pen tender for Drs. Lancaster and Ayo. FINDINGS: Ultrasound guidance was provided during drainage of the vaginal cuff abscess/hematoma. No r adiologist was present for this procedure. IMPRESSION: Ultrasound guidance provided during drainage of the vaginal cuff abscess/hematoma. ACT 112: Negative or not required by law. Electronically signed by: Nomi Colorado M.D. 02/19/2021 5:21 PM
--- NOTE | 2021-02-19 17:26 | Operative Report ---
PG Post Operative Report Pre & Post Diagnosis Operation Date: 02/19/21 09:20 Pre-Op Diagnosis: 1. Pelvic pain 2. Abnormal u/s findings 3. Postoperative Fever 4. Suspected Vaginal Cuff Abscess Post-Op Diagnosis: 1. same 2. Vaginal Cuff Abscess/Hematoma I identified the patient and participated in the time-out.: Yes Procedure Operation Date: 02/19/21 09:20 Actual Procedures p Evaluation Under Anesthesia, Opening of vagina cuff, Evacuation of collection, Reapproximation of vaginal cuff lateral portion, Ultrasound guidance(Not Applicable) Surgeon Aure Rollins MD, FACOG Oracle Programmer Analyst Irlanda Lancaster. Estimated Blood Loss 1 Findings Consistent with Post-Op Diagnosis (drainage of dark bloody fluid, u/s guidance with smaller collection at end of procedure. cuff about 2cm open. ) Fluids 1400 Specimens culture of pelvic fluid Drains none Anesthesia Type General Complications none Disposition Accompanied Patient To Recovery: No Disposition: Recovery Room Indications 60yo with postop fever, pelvic pain and CT and u/s consistent with collection, for planned EUA and drainage of collection with suspicion for abscess. Description of Procedure The patient was taken to the operating room and identified. After adequate general anesthesia was obtained she was placed in the dorsolithotomy position and prepped and draped in the usual sterile fashion. A speculum was used to visualize the vaginal cuff which was intact. An exam under anesthesia was performed with the findings as noted above. Using a Allis clamp holding onto the suture material the suture material was cut. This allowed for an opening of the vaginal cuff. The had this opening blunt dissection with an atraumatic instrument as well as the operators finger took place with that immediate return of hematoma material. Ultrasound was present and could visualize the collection and the collection was significantly smaller by the end of the procedure. During the process of evaluation of the collection a Francois catheter was placed with backfilling the bladder to better delineate any remaining collection margins. Attempts were made to further break down any collection and although the ultrasound was measuring a possible 5 cm remaining collection that was above the bladder at this point, no further evacuation could occur. The opening at the vaginal cuff was approximated to be 3 cm and so a single interrupted suture reapproximated the left lateral vaginal cuff with 0 Vicryl to narrow the opening to approximately 2 cm. There was still significant opening to allow for continued drainage. The Francois catheter was removed. The patient was returned to the supine position. She was woken from anesthesia and transferred recovery room in stable condition. Of note of culture swab was taken of the material that drained immediately upon opening of the cuff. I attest to the content of the Intraoperative Record and any orders documented therein. Any exceptions are noted below. WAREHOUSE ORDER SELECTOR Other Procedure Codes Other [id number] Exam under Anesth
--- NOTE | 2021-02-19 17:28 | Anesthesiology Progress Note ---
Date of Service February 19, 2021 Anesthesia Post Procedure Vital Signs Vital Signs: Temp Pulse Pulse Pulse Resp BP BP 02/19/21 17:25 86 16 144/87 H 02/19/21 17:17 36.9 C 88 16 154/99 H 02/19/21 15:45 37.7 C H 81 18 114/71 02/19/21 15:35 37.1 C 85 18 134/76 02/19/21 14:05 38.2 C H 90 18 125/75 02/19/21 12:14 39.1 C H 96 H 106 H 24 179/95 H Pulse Ox 02/19/21 17:25 100 02/19/21 17:17 97 02/19/21 15:45 95 02/19/21 15:35 96 02/19/21 14:05 94 02/19/21 12:14 93 Pain Intensity Bilateral Lower Pelvic: Pain Intensity: 3 Transfer of Care Handoff Completed per policy Notes Mental Status: alert / awake / arousable Patient Amnestic to Procedure: Yes Nausea / Vomiting: adequately controlled Pain: adequately controlled Airway Patency, RR, SpO2: stable & adequate BP & HR: stable & adequate Hydration State: stable & adequate Anesthetic Complications: no major complications apparent and Pt Satisfied with anesthetic care
[2021-02-19] MEDS ORDERED: oxyCODONE/ACETAMINOPHEN 5mg/325mg TAB PO PRN ×2 (17:34)
[2021-02-19] MEDS: PIPERACILLIN/TAZOBACTAM 4.5 GM in DEXTROSE 5% 100 ML IV SCH ×2 (17:52→23:34)
[2021-02-19] MEDS: buPROPion XL 150 MG TABCR PO SCH (18:07)
[2021-02-19] MEDS: LEVOTHYROXINE SODIUM 150 MCG TABLET PO SCH (18:08)
[2021-02-19] MEDS: METOPROLOL SUCC 25MG EXT REL TAB PO SCH (20:23)
[2021-02-19] MEDS: IBUPROFEN 600 MG TAB PO PRN (20:26)
--- NOTE | 2021-02-19 21:35 | Communication Note ---
Late entry Patient seen in [facility] [address] Aware of findings. Aware I tried to call spouse Cody but left message. Patient notes he was probably umpiring a [employer] game. She knows plan is to use iv abx and see how she improves. Denies questions at the time.
[2021-02-20] MEDS: IBUPROFEN 600 MG TAB PO PRN ×4 (05:35→23:53)
[2021-02-20 05:52] LABS: Basophils # (auto) 0.02 K/uL (0-0.2); Basophils % (auto) 0.2 %; Eosinophils # (auto) 0.12 K/uL (0-0.5); Eosinophils % (auto) 1.2 %; Hematocrit (blood only) 34.1 % (37-47); Hemoglobin 11.5 g/dL (12.0-16.0); Immature Granulocytes # (auto) 0.17 K/uL (0.00-0.02); Immature Granulocytes % (auto) 1.7 %; Lymphocytes # (auto) 0.65 K/uL (1.2-3.4); Lymphocytes % (auto) 6.4 %; Mean Corpuscular Hemoglobin 29.1 pg (25-34); Mean Corpuscular Hgb Conc 33.7 g/dL (32-36); Mean Corpuscular Volume 86.3 fL (80-100); Mean Platelet Volume 9.5 fL (7.4-10.4); Monocytes # (auto) 0.52 K/uL (0.11-0.59); Monocytes % (auto) 5.1 %; Neutrophils # (auto) 8.64 K/uL (1.4-6.5); Neutrophils % (auto) 85.4 %; Platelet Count 386 K/uL (130-400); RDW Coefficient of Variation 13.6 % (11.5-14.5); RDW Standard Deviation 43.4 fL (36.4-46.3); Red Blood Count 3.95 M/uL (4.2-5.4); White Blood Count 10.12 K/uL (4.8-10.8)
[2021-02-20] MEDS: PIPERACILLIN/TAZOBACTAM 4.5 GM in DEXTROSE 5% 100 ML IV SCH ×3 (06:33→21:43)
[2021-02-20] MEDS: LEVOTHYROXINE SODIUM 150 MCG TABLET PO SCH (06:34)
[2021-02-20 06:35] LABS: Albumin Level 2.5 gm/dl (3.4-5.0); Calcium 8.8 mg/dl (8.5-10.1); Creatinine Clr Calc Pharmacy 56.2 ml/min; Est GFR (African American) 57.9; Est GFR (Non-African American) 49.9; Potassium 3.6 mmol/L (3.5-5.1)
[2021-02-20 06:38] LABS: Albumin Globulin Ratio 0.5 (0.9-2); Bilirubin,Total 0.9 mg/dl (0.2-1); Globulin 5.5 gm/dl (2.5-4.0)
[2021-02-20] MEDS: amLODIPine BESYLATE 5 MG TAB PO SCH (08:13)
[2021-02-20] MEDS: allopurinoL 100 MG TAB PO SCH (08:13)
[2021-02-20] MEDS: buPROPion XL 150 MG TABCR PO SCH (08:15)
--- NOTE | 2021-02-20 09:25 | Gynecologic Progress Note ---
Date of Service February 20, 2021 Assessment & Plan (1) Post-operative state: (2) Fever: (3) Elevated liver enzymes: (4) Pelvic abscess in female: Patient feels better since opening of cuff and drainage yesterday. There was issue with one dose of her zosyn, so as far as fever curve need to give more time for antibiotics, she feels clinically better. i am concerned her elevated lfts are due to excessive tylenol intake prior to hospital. not sure of other possible etiology but all tylenol stopped. she denies need for any strong pain meds. will recheck lfts. of uncertain significance is her creatinine which is increasing, but still in normal range. looking back prior to her stent after recent hyster ranged from 0.6-0.85. she has no flank pain. at time of her CT last week had recent stent removal and had seen urology in office day prior and I had spoken to them about CT findings and plan was to keep her on cipro which she was on. In other words, findings then were considered related to circumstances at surgery and post- stent. Of note, she had more soreness of flank and bladder pressure when stent was in and day after and all of that completely resolved. I did put a call into urology to just to let them know she was admitted and current findings. Will continue to monitor and give more time for response to antibiotics. Patient denies questions and understands plan. Addendum: spoke to Dr. Doty, will cont to watch creat trend and if elevates to abnormal range will consult them formally. given abx and recent irritation of urinary tract could be related to fluctuation in creat. pt aware of this conversation. Admission and Anticipated Discharge Date Admission Date: February 19, 2021 Subjective pt doing ok this am. just finished eating her breakfast tray, was hungry. +flatus, no n/v. voiding well. denies pain. she feels burning in vagina but no longer feels that sense of pressure prior to surgery. has had elevated temps but took advil and feel better now. getting ready to walk halls. no cp/sob. no flank pain, no epig pain. she notes prior to coming into hospital was taking 2000mg tylenol every 6hrs. Labs today reviewed with her. LFTs elevated. She did get one dose of oral tylenol yest. Review of Systems Constitutional: + fever Gastrointestinal: no abdominal pain, no nausea, no vomiting and no change in stools Genitourinary: + vaginal discharge (bloody, dark); no dysuria and no flank pain Physical Exam Constitutional: WD/WN, vitals as above Respiratory: normal respiratory effort, lungs clear to auscultation Cardiovascular: Rate/Rhythm: regular rate and regular rhythm Gastrointestinal (Abdomen): Inspection/Auscultation: abdomen normal to inspection Percussion/Palpation: abdomen soft (obese); abdomen nontender and no guarding Neurologic: grossly normal Psychiatric: A+Ox3, euthymic affect Genitourinary: no CVA tenderness Results & Data ([facility]) Vital Signs (Past 12 Hours) Vital Signs Temp Pulse Resp BP Pulse Ox 02/20/21 08:25 99.7 F H 96 02/20/21 07:30 101.1 F H 85 20 126/73 95 02/20/21 05:30 102.2 F H 02/20/21 03:50 99.9 F H 69 18 127/79 95 02/20/21 01:50 98.2 F 02/19/21 23:15 100.0 F H 83 18 149/81 H 95 PG Care Time/CCT Total # of Minutes Spent Total Time Spent with Patient: Total time spent is greater than 50% in coordination of care (as documented) at patient's floor/unit and/or counseling patient: Coding Level of Care Code None Diagnoses Post-operative state Z98.890 Fever R50.9 Elevated liver enzymes R74.8 Pelvic abscess in female N73.9
[2021-02-20 12:10] LABS: Hematocrit (blood only) 31.4 % (37-47); Hemoglobin 10.7 g/dL (12.0-16.0); Mean Corpuscular Hemoglobin 28.5 pg (25-34); Mean Corpuscular Hgb Conc 34.1 g/dL (32-36); Mean Corpuscular Volume 83.5 fL (80-100); Mean Platelet Volume 9.3 fL (7.4-10.4); Platelet Count 325 K/uL (130-400); RDW Coefficient of Variation 13.7 % (11.5-14.5); RDW Standard Deviation 41.6 fL (36.4-46.3); Red Blood Count 3.76 M/uL (4.2-5.4); White Blood Count 9.66 K/uL (4.8-10.8)
[2021-02-20 12:40] LABS: Albumin Level 2.2 gm/dl (3.4-5.0); BUN Creatinine Ratio 11.5 (10-20); Calcium 8.2 mg/dl (8.5-10.1); Creatinine Clr Calc Pharmacy 57.1 ml/min; Est GFR (African American) 59.1; Potassium 3.3 mmol/L (3.5-5.1)
[2021-02-20 12:42] LABS: Albumin Globulin Ratio 0.4 (0.9-2); Bilirubin,Total 0.8 mg/dl (0.2-1); Globulin 5.2 gm/dl (2.5-4.0); Total Protein 7.4 gm/dl (6.4-8.2)
[2021-02-20 13:04] LABS: Basophils # (auto) 0.02 K/uL (0-0.2); Basophils % (auto) 0.2 %; Eosinophils # (auto) 0.04 K/uL (0-0.5); Eosinophils % (auto) 0.4 %; Immature Granulocytes # (auto) 0.17 K/uL (0.00-0.02); Immature Granulocytes % (auto) 1.8 %; Lymphocytes # (auto) 0.35 K/uL (1.2-3.4); Lymphocytes % (auto) 3.6 %; Monocytes # (auto) 0.61 K/uL (0.11-0.59); Monocytes % (auto) 6.3 %; Neutrophils # (auto) 8.47 K/uL (1.4-6.5); Neutrophils % (auto) 87.7 %
[2021-02-20] MEDS: ONDANSETRON INJ 2 MG/ML 2 ML VIAL IV PRN (14:22)
[2021-02-20] MEDS ORDERED: IBUPROFEN 600 MG TAB PO STA (14:41)
--- NOTE | 2021-02-20 17:34 | Gynecologic Progress Note ---
Date of Service February 20, 2021 Assessment & Plan Admission and Anticipated Discharge Date Admission Date: February 19, 2021 ongoing fever to 103 despite Zosyn for 24 hours with normal WBC count and all bodily fluid cultures are negative so far. patient does not appear septic- her only complaint is a headache and feeling hot which can be attributed to her current fever. no abdominal or pelvic pain at this time. will recheck CBC and liver enzymes along with creatinine at 1800.To consider further workup to include CXR, LLE dopplers and repeat CT scan of abdomen and pelvis. will recheck blood cultures as well at this time. Subjective I was called to see patient because of persistent fever to 103 F despite ibuprofen 2 hours ago. She had a vaginal cuff abscess open & drained yesterday afternoon at 1700. She has been on Zosyn since then although one dose was given later than scheduled last night. Liver enzymes were elevated, most likely from overuse of Tylenol prior to admission. Now the liver enzymes and creatinine both are now normalizing.She had a ureteral stent placed during the robotic [facility], performed on 01/29/21, because of an incidental left ureteral stricture noted at that time. The stent was removed on 02/14 but she was started on cefidinir and cipro following an ER visit on 02/08 because of persistent dysuria. She has been having low grade fevers since she went home after her surgery, but this afternoon has been the highest values. WBC has also normalized and is now 9.6. She has no localizing signs at this time except for a headache. She denies dysuria, abdominal pain, pelvic pressure, nausea or vomiting now. no flank pain, SOB, chest pain or pain with inspiration. no calf tenderness noted either. currently she has scant brown vaginal discharge without an odor ans she is passing flatus. she has been drinking fluids well and has an appetite. D When she was in the ER on 02/08 , she was tested for COVID, and Flu types A&B. All cultures are showing no growth including urine, blood and vaginal cuff, Review of Systems Review of Systems: All systems reviewed & are unremarkable except as noted in HPI & below Physical Exam Constitutional: WD/WN, vitals as above Respiratory: normal respiratory effort, lungs clear to auscultation Cardiovascular: RRR, no murmur, no edema Extremities: no calf tenderness Gastrointestinal (Abdomen): Inspection/Auscultation: abdomen normal to inspection, normal bowel sounds and + abdominal surgical scar (healing well- nocellulitis); abdomen not distended no CVAT bilaterally Results & Data ([facility]) Vital Signs (Past 12 Hours) Vital Signs Temp Pulse Resp BP Pulse Ox 02/20/21 16:40 102.7 F H 02/20/21 16:00 103.3 F H 105 H 18 144/82 H 96 02/20/21 14:30 103.1 F H 95 H 20 160/91 H 99 02/20/21 12:35 101.3 F H 02/20/21 11:05 103.1 F H 93 H 18 134/80 96 02/20/21 08:25 99.7 F H 96 02/20/21 07:30 101.1 F H 85 20 126/73 95 02/20/21 05:30 102.2 F H PG Care Time/CCT Total # of Minutes Spent Total Time Spent with Patient: Total time spent is greater than 50% in coordination of care (as documented) at patient's floor/unit and/or counseling patient: Coding Level of Care Code None
[2021-02-20 18:32] LABS: Basophils # (auto) 0.01 K/uL (0-0.2); Basophils % (auto) 0.1 %; Eosinophils # (auto) 0.01 K/uL (0-0.5); Eosinophils % (auto) 0.1 %; Hematocrit (blood only) 30.5 % (37-47); Hemoglobin 10.3 g/dL (12.0-16.0); Immature Granulocytes # (auto) 0.16 K/uL (0.00-0.02); Immature Granulocytes % (auto) 1.7 %; Lymphocytes # (auto) 0.41 K/uL (1.2-3.4); Lymphocytes % (auto) 4.3 %; Mean Corpuscular Hemoglobin 28.7 pg (25-34); Mean Corpuscular Hgb Conc 33.8 g/dL (32-36); Mean Platelet Volume 9.4 fL (7.4-10.4); Monocytes # (auto) 0.38 K/uL (0.11-0.59); Neutrophils # (auto) 8.51 K/uL (1.4-6.5); Neutrophils % (auto) 89.8 %; Platelet Count 319 K/uL (130-400); RDW Coefficient of Variation 13.7 % (11.5-14.5); Red Blood Count 3.59 M/uL (4.2-5.4); White Blood Count 9.48 K/uL (4.8-10.8)
[2021-02-20 18:48] LABS: BUN Creatinine Ratio 9.9 (10-20); Calcium 8.7 mg/dl (8.5-10.1); Creatinine Clr Calc Pharmacy 52.2 ml/min; Est GFR (Non-African American) 45.7; Potassium 3.2 mmol/L (3.5-5.1)
[2021-02-20 18:51] LABS: Albumin Globulin Ratio 0.4 (0.9-2); Bilirubin,Total 0.8 mg/dl (0.2-1); Globulin 5.3 gm/dl (2.5-4.0); Total Protein 7.3 gm/dl (6.4-8.2)
[2021-02-20] MEDS: METOPROLOL SUCC 25MG EXT REL TAB PO SCH (21:20)
[2021-02-20] MEDS ORDERED: POTASSIUM CHLORIDE CRTAB 20 MEQ TABCR PO STA (21:20)
[2021-02-20] MEDS: SODIUM CHLORIDE 0.9% 1000ML 1,000 ML IV SCH (21:43)
--- NOTE | 2021-02-20 22:32 | Hospitalist Consultation ---
Date of Consultation February 20, 2021 Assessment & Plan (1) Postoperative fever: 60 yo F with recent hysterectomy with BL oopherectomy, drainage of cervical cuff abscess with persistent post-op fever. 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 fistula identified on CT A/P with gas in bladder adjacent to pelvic abscess - IV NS hydration - zofran prn nausea - Pulmonary Embolus - CTA Chest negative for PE Transaminitis due to tylenol use - downtrending - Acetaminophen level <3, no need for NAC - no tylenol use, fever control with ibuprofen Elevated Blood Sugars - BSG 234 on BMP - A1c pending, no hx DM2 LADARIUS - Cr 1.38 - NS bolus prior to CT scans - continue fluids and monitor Cr in setting of ibuprofen use Hypokalemia - K 3.2, repleted DVT ppx: SCDs Dispo: PNEUMATIC [facility]UM [facility]AND[facility] 4N, can transfer to PCU if patient sx worsening or clinically decompensating (2) Pelvic abscess in female: (3) Elevated liver enzymes: Supervising Physician Co-Signing Physician Notes Attending addendum: I have physically seen this patient, have supervised the medical residents activities, and agree with the H&P unless as otherwise noted. Assessment and Plan: Persistent postoperative fever- Order CTA chest for PE protocol was negative, and CT abdomen/pelvis with contrast suggest possible fistula Empiric antibiotic therapy with Zosyn IV, vancomycin IV and levofloxacin IV IV fluids Follow all cultures and sensitivity results Abnormal LFTs- May be secondary to sepsis Patient reportedly did have a significant amount of Tylenol use to control her pain prior to procedure as an outpatient Acetaminophen added tonight is negative Follow serial studies CT abdomen pelvis without significant abnormality remaining orders and notations as noted History of Present Illness Attending Physician: Aure Rollins MD, FACOG History of Present Illness Consult requested by Dr. Toussaint for ongoing post-op fever. Patient underwent hysterectomy with BL oopherectomy last month for HSIL, followed by operation 2 days ago for drainage of cervical cuff abscess. Blood cultures to date negative. Persistent fevers up to 39C all day despite ibuprofen. Elevated LFTs noted on admission, downtrending due to heavy tylenol use at home. Sx include fevers, chills, abd pain, pelvic pain. Question re: septic thrombophelbitis? Workup: lactate, procal, d-dimer, fibrinogen, tylenol level, Lower extremity US, CTA Chest, CT A/P w/con. Allergies Allergy/AdvReac Type Severity Reaction Status Date / Time No Known Allergies Allergy Verified 02/19/21 09:53 Home Medications Medication Instructions Recorded Confirmed Type trazodone 50 mg tablet 50 mg PO HS PRN #90 tab 02/21/20 02/19/21 Rx bupropion HCl 150 mg 24 hr tablet, 150 mg PO QAM #90 tab 08/14/20 02/19/21 Rx extended release allopurinol 100 mg PO QAM 01/12/21 02/19/21 History amlodipine 2.5 mg PO QAM 01/12/21 02/19/21 History hydrochlorothiazide 25 mg PO QAM 01/12/21 02/19/21 History levothyroxine 150 mcg PO DAILY 01/12/21 02/19/21 History metoprolol succinate 25 mg PO HS 01/12/21 02/19/21 History oxycodone-acetaminophen [Percocet] 1 tab PO Q4H PRN #14 tab 01/29/21 02/19/21 Rx ciprofloxacin HCl 500 mg tablet 500 mg PO BID #28 tab 02/15/21 02/19/21 Rx ondansetron HCl 4 mg tablet 4 mg PO Q8H PRN #30 tab 02/15/21 02/19/21 Rx meloxicam 7.5 mg tablet 7.5 mg PO DAILY PRN #30 tab 02/20/21 Rx Patient History Medical History Anxiety Depression Gout History of COVID-19 09/08/2020 tested [facility], SOB muscle body ache, fatigue, cough, headaches, hair loss. Hypertension Hypothyroidism Morbid obesity Osteoarthritis Prediabetes watches diet PVC (premature ventricular contraction) takes metoprolol Surgical History H/O tooth extraction wisdom teeth History of tubal ligation Hx of cholecystectomy Family History Brother Stroke Diabetes Mother Diabetes Hypertension Rheumatoid arthritis Stroke Father Pulmonary embolism Denies family history of Ovarian cancer Prostate cancer Myocardial infarction Breast cancer Colorectal cancer Social History Smoking Status: Former smoker Smoking End Date: 20 years ago; Number of Years Since Quit: 18; Second Hand Exposure: No; Do You Dip or Chew Tobacco: No; Tobacco Cessation Education Requested by Patient: No (N/A) Hx Alcohol Use: No Hx Substance Use: No Preferred Language: Ethiopian Communication Ability: Effective Visual Impairment: No Limitations Hearing Ability: Normal Tariff Inspector Required: No Beliefs That Will Affect Care: None marital status: Current Living Situation: Spouse current occupational status: employed current occupation: [employer], [employer] Other Information That Helps Us Care for You: No Feels Safe at Home: Yes Safety Concerns: Feels Safe At This Time Dental Care, Regularly: Yes Physical Activity Frequency: 1-2 Times per Week Seatbelt Use: always Assistive Devices: None Review of Systems Constitutional: + fever, + chills, + fatigue, + malaise and + weakness Gastrointestinal: + abdominal pain, + bloating and + nausea; no vomiting Genitourinary: + pelvic pain Physical Exam Physical Exam: Constitutional: obese, visibly fatigued laying in bed Eyes: EOMI, pupils equal and reactive bilaterally, no scleral icterus Cardiac: RRR, no murmurs, gallops or rubs. Normal S1, S2 Pulm: CTA BL, no wheezes, rhonchi, crackles or rubs, moving air well throughout both lungs Abd: soft, ttp suprapubic, BL lower quadrants, distended, normal bowel sounds, no rebound or guarding Extremities: 2+ peripheral pulses, no edema, no calf pain Results & Data Results & Data ([facility]) Vital Signs (Past 12 Hours) Vital Signs Temp Pulse Resp BP Pulse Ox 02/20/21 22:00 38.6 C H 02/20/21 21:20 39.6 C H 98 H 20 127/79 02/20/21 19:30 39.6 C H 96 H 20 135/76 92 02/20/21 18:35 38.8 C H 02/20/21 17:15 39.4 C H 02/20/21 16:40 39.3 C H 02/20/21 16:00 39.6 C H 105 H 18 144/82 H 96 02/20/21 14:30 39.5 C H 95 H 20 160/91 H 99 02/20/21 12:35 38.5 C H 02/20/21 11:05 39.5 C H 93 H 18 134/80 96 Laboratory Results WBC 9.48 K/uL (4.8-10.8) 02/20/21 18:18 RBC 3.59 M/uL (4.2-5.4) L 02/20/21 18:18 Hgb 10.3 g/dL (12.0-16.0) L 02/20/21 18:18 Hct 30.5 % (37-47) L 02/20/21 18:18 MCV 85.0 fL (80-100) 02/20/21 18:18 MCH 28.7 pg (25-34) 02/20/21 18:18 MCHC 33.8 g/dL (32-36) 02/20/21 18:18 RDW Std Deviation 43.0 fL (36.4-46.3) 02/20/21 18:18 RDW Coeff of Carlyn 13.7 % (11.5-14.5) 02/20/21 18:18 Plt Count 319 K/uL (130-400) 02/20/21 18:18 MPV 9.4 fL (7.4-10.4) 02/20/21 18:18 Immature Gran % (Auto) 1.7 % 02/20/21 18:18 Neut % (Auto) 89.8 % 02/20/21 18:18 Lymph % (Auto) 4.3 % 02/20/21 18:18 Sanders % (Auto) 4.0 % 02/20/21 18:18 Eos % (Auto) 0.1 % 02/20/21 18:18 Baso % (Auto) 0.1 % 02/20/21 18:18 Neut # (Auto) 8.51 K/uL (1.4-6.5) H 02/20/21 18:18 Lymph # (Auto) 0.41 K/uL (1.2-3.4) L 02/20/21 18:18 Sanders # (Auto) 0.38 K/uL (0.11-0.59) 02/20/21 18:18 Eos # (Auto) 0.01 K/uL (0-0.5) 02/20/21 18:18 Baso # (Auto) 0.01 K/uL (0-0.2) 02/20/21 18:18 Immature Gran # (Auto) 0.16 K/uL (0.00-0.02) H 02/20/21 18:18 PT 12.3 Seconds (9.0-12.0) H 02/20/21 21:54 INR 1.2 (0.9-1.1) H 02/20/21 21:54 APTT 27.2 Seconds (21.0-31.0) 02/20/21 21:54 PTT Ratio 1.0 02/20/21 21:54 Fibrinogen 628 mg/dl (184-400) H 02/20/21 21:54 D-Dimer 5010 ug/L FEU (0-500) H* 02/20/21 21:54 Sodium 134 mmol/L (136-145) L 02/20/21 18:18 Potassium 3.2 mmol/L (3.5-5.1) L 02/20/21 18:18 Chloride 102 mmol/L (98-107) 02/20/21 18:18 Carbon Dioxide 23 mmol/L (21-32) 02/20/21 18:18 Anion Gap 8.0 (3-11) 02/20/21 18:18 BUN 13 mg/dl (7-18) 02/20/21 18:18 Creatinine 1.28 mg/dl (0.6-1.2) H 02/20/21 18:18 Est Cr Clr Drug Dosing 52.2 ml/min 02/20/21 18:18 Est GFR ( Amer) 53.0 02/20/21 18:18 Est GFR (Non-Af Amer) 45.7 02/20/21 18:18 BUN/Creatinine Ratio 9.9 (10-20) L 02/20/21 18:18 Glucose 234 mg/dl (70-99) H 02/20/21 18:18 Lactate 1.4 mmol/L (0.4-2.0) 02/20/21 21:54 Calcium 8.7 mg/dl (8.5-10.1) 02/20/21 18:18 Total Bilirubin 0.8 mg/dl (0.2-1) 02/20/21 18:18 AST 195 U/L (15-37) H 02/20/21 18:18 ALT 141 U/L (12-78) H 02/20/21 18:18 Alkaline Phosphatase 488 U/L (45-117) H 02/20/21 18:18 Total Protein 7.3 gm/dl (6.4-8.2) 02/20/21 18:18 Albumin 2.0 gm/dl (3.4-5.0) L 02/20/21 18:18 Globulin 5.3 gm/dl (2.5-4.0) H 02/20/21 18:18 Albumin/Globulin Ratio 0.4 (0.9-2) L 02/20/21 18:18 Procalcitonin 1.14 ng/ml (0-0.5) H 02/20/21 18:18 Urine Color Dark Yellow 02/19/21 13:00 Urine Appearance Clear (Clear) 02/19/21 13:00 Urine pH 5.0 (4.5-7.5) 02/19/21 13:00 Ur Specific [place] 1.024 (1.000-1.030) 02/19/21 13:00 Urine Protein 1+ (Negative) H 02/19/21 13:00 Urine Glucose (UA) Negative (Negative) 02/19/21 13:00 Urine Ketones 3+ (Negative) H 02/19/21 13:00 Urine Blood 3+ (Negative) H 02/19/21 13:00 Urine Nitrite Negative (Negative) 02/19/21 13:00 Urine Bilirubin Negative (Negative) 02/19/21 13:00 Urine Urobilinogen Negative (Negative) 02/19/21 13:00 Ur Leukocyte Esterase Trace (Negative) H 02/19/21 13:00 Urine WBC (Auto) >30 /hpf (0-5) H 02/19/21 13:00 Urine RBC (Auto) >30 /hpf (0-4) H 02/19/21 13:00 U Hyaline Cast (Auto) 1-5 /lpf (0-5) 02/19/21 13:00 U Epithel Cells (Auto) >30 /lpf (0-5) H 02/19/21 13:00 Urine Bacteria (Auto) Negative (Negative) 02/19/21 13:00 Acetaminophen < 2 ug/ml (10-30) L 02/20/21 21:54 COVID[facility]19 [facility] [place] 12:05 SARS-CoV-2, RNA, NAAT NEGATIVE (NEGATIVE) 02/19/21 12:05 Impressions Guidance Ultrasound 02/19/21 00:00 US guide intraoperative CLINICAL HISTORY: EUA VAGINAL CUFF COMPARISON STUDY: CT of the abdomen and pelvis February 15, 2021. TECHNIQUE: Ultrasound guidance was provided by the turkey farmer for Drs. Lancaster and Ayo. FINDINGS: Ultrasound guidance was provided during drainage of the vaginal cuff abscess/hematoma. No radiologist was present for this procedure. IMPRESSION: Ultrasound guidance provided during drainage of the vaginal cuff abscess/hematoma. ACT 112: Negative or not required by law. Electronically signed by: Nomi Colorado M.D. 02/19/2021 5:21 PM Resident Activity Tracking Resident Involvement: Resident Care Provided Care Provided: Adult Hospital Medicine and OB Delivery
[2021-02-20 22:42] LABS: Fibrinogen 628 mg/dl (184-400); INR 1.2 (0.9-1.1); Partial Thromboplastin Time 27.2 Seconds (21.0-31.0); Prothrombin Time 12.3 Seconds (9.0-12.0)
[2021-02-20 22:47] LABS: D Dimer 5010 ug/L FEU (0-500)
[2021-02-20] MEDS ORDERED: OPTIRAY 350 500ml IV ONE (23:30)
[2021-02-21] MEDS: ONDANSETRON INJ 2 MG/ML 2 ML VIAL IV PRN ×2 (00:05→12:55)
[2021-02-21] MEDS ORDERED: VANCOMYCIN CONSULT ACTIVE PRN (04:37)
[2021-02-21] MEDS ORDERED: VANCOMYCIN HCL 1,000 MG in SODIUM CHLORIDE 0.9% 250 ML IV SCH (04:45)
[2021-02-21] MEDS: IBUPROFEN 600 MG TAB PO PRN ×3 (04:51→18:40)
[2021-02-21] MEDS ORDERED: VANCOMYCIN HCL 2,250 MG in SODIUM CHLORIDE 0.9% 500 ML IV ONE (05:00)
[2021-02-21] MEDS ORDERED: levoFLOXacin/D5W 750 MG/150 ML BAG IV SCH ×2 (05:00→08:00)
[2021-02-21] MEDS: PIPERACILLIN/TAZOBACTAM 4.5 GM in DEXTROSE 5% 100 ML IV SCH ×3 (05:57→21:43)
[2021-02-21] MEDS: LEVOTHYROXINE SODIUM 150 MCG TABLET PO SCH (05:58)
[2021-02-21 06:26] LABS: Basophils # (auto) 0.02 K/uL (0-0.2); Basophils % (auto) 0.3 %; Eosinophils # (auto) 0.01 K/uL (0-0.5); Eosinophils % (auto) 0.1 %; Hemoglobin 9.8 g/dL (12.0-16.0); Immature Granulocytes # (auto) 0.16 K/uL (0.00-0.02); Lymphocytes % (auto) 7.7 %; Mean Corpuscular Hemoglobin 28.2 pg (25-34); Mean Corpuscular Hgb Conc 33.8 g/dL (32-36); Mean Corpuscular Volume 83.3 fL (80-100); Mean Platelet Volume 9.3 fL (7.4-10.4); Monocytes # (auto) 0.46 K/uL (0.11-0.59); Monocytes % (auto) 5.9 %; Neutrophils # (auto) 6.59 K/uL (1.4-6.5); Platelet Count 244 K/uL (130-400); RDW Coefficient of Variation 13.9 % (11.5-14.5); RDW Standard Deviation 42.5 fL (36.4-46.3); Red Blood Count 3.48 M/uL (4.2-5.4); White Blood Count 7.84 K/uL (4.8-10.8)
[2021-02-21 07:00] LABS: Albumin Level 1.9 gm/dl (3.4-5.0); BUN Creatinine Ratio 11.5 (10-20); Creatinine Clr Calc Pharmacy 64.3 ml/min; Est GFR (African American) 68.1; Est GFR (Non-African American) 58.8; Potassium 3.5 mmol/L (3.5-5.1)
[2021-02-21 07:02] LABS: Albumin Globulin Ratio 0.4 (0.9-2); Bilirubin,Total 0.9 mg/dl (0.2-1); Globulin 4.7 gm/dl (2.5-4.0); Total Protein 6.6 gm/dl (6.4-8.2)
--- NOTE | 2021-02-21 07:05 | Ultrasound Report ---
US venous doppler LE BI CLINICAL HISTORY: DVT workup POSSIBLE PULMONARY EMBOLISM. COMPARISON STUDY: 10/28/2019 FINDINGS: Real-time and color flow Doppler imaging were performed. Flow was seen within the femoral, popliteal and calf veins with no intraluminal thrombus demonstrated. The saphenous vein is patent. IMPRESSION: No evidence of lower extremity DVT. ACT 112: Negative or not required by law. Electronically signed by: Kirby Mir M.D. 02/21/2021 7:03 AM
[2021-02-21 07:25] LABS: Estimated Average Glucose 154 mg/dl
--- NOTE | 2021-02-21 07:35 | CT Scan Report ---
CT OF THE ABDOMEN AND PELVIS WITH CONTRAST CLINICAL HISTORY: pelvic thrombus? COMPARISON STUDY: CT of the abdomen and pelvis February 15, 2021. TECHNIQUE: Following IV administration of 103 mL of Optiray, axial images of the abdomen and pelvis w ere obtained from the lung bases to the proximal femurs. Images were reviewed in the axial, sagittal, and coronal planes. IV contrast was administered without complication. Automated exposure control w as utilized for the study. A dose lowering technique was utilized adhering to the principles of ANAND Dominguez. CT DOSE: 2607.75 mGy.cm FINDINGS: Please note that the chest CT will be reported separately. No pneumatosis, free air or port al venous gas is present. There is probable hepatic steatosis. Mild hepatosplenomegaly is noted. The adrenal glands and pancreas are unremarkable. There is no biliary ductal dilatation status post shahnaz cystectomy. Several right renal cysts are noted. Mild left hydronephrosis with delayed left nephrogra m is again noted. This was shown on prior exam. There are no ureteral calculi. There is mild wall thi ckening of the mid to distal left ureter. Bladder wall thickening is again noted. Gas within the blad genny has decreased since prior CT. There is no evidence for a bowel obstruction. Colonic diverticulosi s is noted without evidence for acute diverticulitis. There are several mildly enlarged retroperitone al lymph nodes. Index right common iliac lymph node on image 255 of 436 measures 1.2 x 1 cm. The gissel ent is status post hysterectomy. The fluid and gas containing collection along the superior aspect of the vaginal cuff has significantly decreased in size since CT of February 15, 2021. This now measures 6.3 x 3 cm. Appearance measuring 8.5 x 7.8 cm. Adjacent infiltration and fluid has decreased. No thrombus is identified within the IVC or the iliac veins. IMPRESSION: 1. Significant decrease in size of the suspected abscess along the superior aspect of the vaginal cuf f since CT of February 15, 2021. This now measures 6.3 x 3 cm. Adjacent infiltration and fluid has slightly decreased. 2. Persistent mild left hydroureteronephrosis with mild wall thickening of the distal left ureter. Bl adder wall thickening which was shown on prior exam and a small amount of gas within the bladder whic h has decreased. Findings could be correlated with urinalysis. 3. No thrombus identified within the IVC or iliac veins. 4. Mildly enlarged retroperitoneal lymph nodes. These may be reactive however a follow-up CT in 6 mon ths to ensure resolution is recommended. ACT 112: Negative or not required by law. Electronically signed by: Nomi Colorado M.D. 02/21/2021 7:33 AM
--- NOTE | 2021-02-21 07:43 | CT Scan Report ---
CT ANGIOGRAM OF THE CHEST CLINICAL HISTORY: Atypical chest pain. Possible pulmonary embolism COMPARISON STUDY: No previous studies for comparison. TECHNIQUE: Following the IV administration of 103 mL of Optiray, CT angiogram of the thorax was perfo rmed from the thoracic inlet to the lung bases utilizing the pulmonary embolus protocol. Images are r eviewed in the axial, sagittal, and coronal planes. IV contrast was administered without complication . MIP imaging was performed. A dose lowering technique was utilized adhering to the principles of AL BROOK. CT DOSE: FINDINGS: There is dissected hepatic steatosis. No pathologically enlarged axillary mediastinal or hilar lymph nodes were visualized. There was no evidence of thoracic aortic dilatation. There were no pulmonary artery filling defects to indicate acute pulmonary embolism. No pleural effusions are visualized. There was no evidence of focal pulmonary consolidation. There is mild dependent atelectasis. There are coronary artery calcifications. There is a small hiatal hernia There is probable right shoulder calcific tendinopathy. IMPRESSION: 1. No evidence of acute pulmonary embolism 2. No evidence of focal pulmonary consolidation ACT 112: Negative or not required by law. Electronically signed by: Kirby Mir M.D. 02/21/2021 7:42 AM
[2021-02-21] MEDS ORDERED: Heparin IV Adult Wt-Based Standard *NO* Bolus Protocol IV SCH (08:30)
--- NOTE | 2021-02-21 08:39 | Gynecologic Progress Note ---
Date of Service February 21, 2021 Assessment & Plan (1) Postoperative fever: (2) Pelvic abscess in female: pt feels unwell with fever but no other localizing sign or sx to explain it. collection has been drained and nothing growing on culture. urine and blood cx neg. with prior abx regimen wbc normalized and new abx regimen infusing. fevers remain significant which with recent drafter electronic surgery raises suspicion for septic pelvic thrombophlebitis. pt remote from significant surgery. course of heparin would be next step. spoke to urology who is aware of pt being admitted and reviewed course thus far, but they do not feel without any sx of obstruction, flank pain, etc, that they would consider emergency stent etc. will consult them formerly so they can follow along. Dr. Staton did also say that if suddenly something were to change and pt needed stent or urologic procedure, that he could work around infusing heparin. spoke to medicine about our thoughts regarding dx. spoke to patient at length as well. plan heparin this am. of note, lfts improving, thought to be elevated related to acetominophen use pre- hospital. have held all tylenol. has used more advil to help with fevers (pt has not needed for pain) and aware of wavering creatinine in background of issues with her left ureter and therefore i have kept in touch with urology. not sure about influence of renally excreted abx and use of advil on the wavering creatinine but her ureteral stricture history is kept in close mind. patient aware of all of those findings and denies questions. she is aware urology will be also stopping by. she is aware that i have spoken with her primary medical team this am as well. Admission and Anticipated Discharge Date Admission Date: February 19, 2021 Subjective pt in icu bed, no pcu beds avail. seen by medicine overnight. overnight events reviewed with Dr. Galdamez as well. imaging neg, the air in bladder related to recent surgery and hinojosa and backfilling of bladder. she denies leaking from vagina. holds her urine and then voids without issue. no pain, no flank pain, no pelvic pain, no abd pain. eating. +flatus. some nausea and she attributes that to recent change in her abx overnight and that has also resulted in diarrhea. she has headache on and off and feels clammy and hot with her fevers. no leg pain. Review of Systems Constitutional: + fever and + fatigue; see below Neurologic: + headache(s) Physical Exam Constitutional: WD/WN, vitals as above Gastrointestinal (Abdomen): Percussion/Palpation: abdomen soft; abdomen nontender and no guarding Neurologic: grossly normal Psychiatric: A+Ox3, euthymic affect Genitourinary: no CVA tenderness Results & Data ([facility]) Vital Signs (Past 12 Hours) Vital Signs Temp Temp Temp Pulse Pulse Resp BP 02/21/21 06:35 102.6 F H 02/21/21 05:40 103.3 F H 02/21/21 04:45 102.4 F H 101.1 F H 102.4 F H 92 H 92 H 18 131/78 02/21/21 04:10 100.0 F H 02/21/21 03:10 99.9 F H 99.9 F H 75 75 18 104/70 02/21/21 02:10 101.5 F H 100.4 F H 78 18 108/68 02/21/21 01:10 102.4 F H 02/20/21 23:50 102.0 F H 82 18 121/78 02/20/21 22:00 101.5 F H 02/20/21 21:20 103.3 F H 98 H 20 127/79 Pulse Ox 02/21/21 06:35 02/21/21 05:40 02/21/21 04:45 96 02/21/21 04:10 02/21/21 03:10 96 02/21/21 02:10 95 02/21/21 01:10 02/20/21 23:50 98 02/20/21 22:00 02/20/21 21:20 PG Care Time/CCT Total # of Minutes Spent Total Time Spent with Patient: Total time spent is greater than 50% in coordination of care (as documented) at patient's floor/unit and/or counseling patient: Coding Level of Care Code None Diagnoses Postoperative fever R50.82 Pelvic abscess in female N73.9
[2021-02-21] MEDS: SODIUM CHLORIDE 0.9% 1000ML 1,000 ML IV SCH ×3 (08:46→20:31)
[2021-02-21] MEDS: amLODIPine BESYLATE 5 MG TAB PO SCH ×2 (08:48→09:07)
[2021-02-21] MEDS: allopurinoL 100 MG TAB PO SCH (08:48)
[2021-02-21] MEDS: buPROPion XL 150 MG TABCR PO SCH (08:49)
[2021-02-21] MEDS: HEPARIN SODIUM/DEXTROSE 25,000 UNITS/500 ML BAG IV SCH (09:17)
--- NOTE | 2021-02-21 10:03 | Urology Consultation ---
Date of Consultation February 21, 2021 Assessment & Plan (1) Fever: (2) Hydronephrosis, left: 60 year old female with recent hysterectomy admitted for persistent post- operative fever and pain, vaginal cuff abscess. - Hospital course, outpatient records, imaging, lab work, and past medical and s urgical history reviewed - Hx of left ureteral stricture - She remains febrile undergoing work-up, lab work reviewed - creatinine 1.04, WBC 7.84, urine and BCx NGTD - Case and CT imaging personally reviewed with Dr. Doty - CT showing inflammation vs external compression from abscess vs pyelo - Patient is not experiencing flank pain - will continue to monitor for now - Continue antibiotics and supportive care per primary team - No acute intervention today, can make NPO at [place] for reassessment - Will continue to monitor closely with primary team Supervising Physician Co-Signing Physician Notes Pt seen and chart reviewed . Pt denies flank pain or dysuria and had a negative urine culture 02/19 but this may have been suppressed by antibiotic therapy . Ct shows a persistent mild left hydronephrosis that was not present in [address] or sonogram and while her creatine is nl at 1.04 it was 0.51 with the stent in place . The pt had just eaten dinner when I saw her and she was against the idea of a stent when I suggested it might be necessary , Will make her NPO and order an IVP . If she remains febrile and is obstructed would need to consider replacing the stent . History of Present Illness Reason for Consultation: h/o ureteral stricture left Requesting Physician: Dr. Rollins Attending Physician: Aure Rollins MD, FACOG History of Present Illness 60 year old female with PMHx of HTN, obesity, hypothyroidism, prediabetes, PVC, dysplasia of cervix, and recent hysterectomy admitted for persistent post- operative fever and pain, vaginal cuff abscess. Patient was directly admitted to [facility] [place] on 02/19/21 for postoperative fever, pain, and abscess at vaginal cuff s/p H on 01/29. Patient is known to our service. Dr. Doty was consulted intraoperatively during her hysterectomy due to concern for left ureteral stricture. He placed a left ureteral stent at that time. She presented to [facility] [place] ED on 02/10 with urinary symptoms and was discharged with antibiotics for suspected UTI. Her stent was removed in our clinic on 02/14. Contrast enhanced CT A/P on 02/15 showed an 8.5 cm collection suggestive of abscess above the vaginal cuff; mild left hydroureteronephrosis, with evidence of cystitis and ascending urinary tract infection/left-sided pyelonephritis. She was seen in [facility] and was clinically feeling well at that time. She elected to continue with antibiotics and monitoring. Patient began to have symptoms of fever, nausea and pain about 3 days later. Transvaginal US at [facility] noted 7.9 x 5 x 6 cm collection directly at cuff. Due to fever despite antibiotics, she was directly admitted by [facility] service with plan to drain the collection. Lab work on arrival revealed WBC 11.54, creatinine 0.99. Urine and blood cultures were collected. She is s/p opening of vagina cuff, evacuation of collection, reapproximation of vaginal cuff lateral portion on 02/19. Hospital medicine consu lted for persistent post-op fever - undergoing work-up. Our service is consulted due to history of left ureteral stricture. Chart review: Febrile, last temp 39.2 Creatinine 1.04 WBC 7.84 Hgb 9.8 UC&S 02/19 no growth BCx 02/19 no growth to date BCx 02/21 pending On IV Zosyn, Levaquin, Vancomycin She is on Heparin gtt Imaging: CT A/P with IV contrast 1. Significant decrease in size of the suspected abscess along the superior aspect of the vaginal cuff since CT of February 15, 2021. This now measures 6.3 x 3 cm. Adjacent infiltration and fluid has slightly decreased. 2. Persistent mild left hydroureteronephrosis with mild wall thickening of the distal left ureter. Bladder wall thickening which was shown on prior exam and a small amount of gas within the bladder which has decreased. Findings could be correlated with urinalysis. 3. No thrombus identified within the IVC or iliac veins. 4. Mildly enlarged retroperitoneal lymph nodes. These may be reactive however a follow-up CT in 6 months to ensure resolution is recommended. Lower Extremity US negative for DVT CTA Chest negative for PE Patient seen and examined at bedside. Awake and sitting up in bed. She reports fatigue. Notes fever and chills intermittently, not at present. She has some discomfort across her lower abdomen. No flank pain. She is voiding without difficulty. No dysuria or hematuria. Notes some vaginal spotting after her evacuation surgery. Mild nausea, no vomiting. She is tolerating diet. BM this morning. No additional concerns today. Allergies Allergy/AdvReac Type Severity Reaction Status Date / Time No Known Allergies Allergy Verified 02/19/21 09:53 Home Medications Medication Instructions Recorded Confirmed Type trazodone 50 mg tablet 50 mg PO HS PRN #90 tab 02/21/20 02/19/21 Rx bupropion HCl 150 mg 24 hr tablet, 150 mg PO QAM #90 tab 08/14/20 02/19/21 Rx extended release allopurinol 100 mg PO QAM 01/12/21 02/19/21 History amlodipine 2.5 mg PO QAM 01/12/21 02/19/21 History hydrochlorothiazide 25 mg PO QAM 01/12/21 02/19/21 History levothyroxine 150 mcg PO DAILY 01/12/21 02/19/21 History metoprolol succinate 25 mg PO HS 01/12/21 02/19/21 History oxycodone-acetaminophen [Percocet] 1 tab PO Q4H PRN #14 tab 01/29/21 02/19/21 Rx ciprofloxacin HCl 500 mg tablet 500 mg PO BID #28 tab 02/15/21 02/19/21 Rx ondansetron HCl 4 mg tablet 4 mg PO Q8H PRN #30 tab 02/15/21 02/19/21 Rx meloxicam 7.5 mg tablet 7.5 mg PO DAILY PRN #30 tab 02/20/21 Rx Patient History Medical History Anxiety Depression Gout History of COVID-19 09/08/2020 tested [facility] [place], SOB muscle body ache, fatigue, cough, headaches, hair loss. Hypertension Hypothyroidism Morbid obesity Osteoarthritis Prediabetes watches diet PVC (premature ventricular contraction) takes metoprolol Surgical History H/O tooth extraction wisdom teeth History of tubal ligation Hx of cholecystectomy Family History Brother Stroke Diabetes Mother Diabetes Hypertension Rheumatoid arthritis Stroke Father Pulmonary embolism Denies family history of Ovarian cancer Prostate cancer Myocardial infarction Breast cancer Colorectal cancer Social History (Reviewed 02/21/21 @ 11:01 by LOLI Fitzpatrick Smoking Status: Former smoker Smoking End Date: 20 years ago; Number of Years Since Quit: 18; Second Hand Exposure: No; Do You Dip or Chew Tobacco: No; Tobacco Cessation Education Requested by Patient: No (N/A) Hx Alcohol Use: No Hx Substance Use: No Preferred Language: Qatari Communication Ability: Effective Visual Impairment: No Limitations Hearing Ability: Normal Blood Bank Coordinator Required: No Beliefs That Will Affect Care: None marital status: Current Living Situation: Spouse current occupational status: employed current occupation: [employer], [employer] Other Information That Helps Us Care for You: No Feels Safe at Home: Yes Safety Concerns: Feels Safe At This Time Dental Care, Regularly: Yes Physical Activity Frequency: 1-2 Times per Week Seatbelt Use: always Assistive Devices: None Review of Systems Constitutional: as per Subjective / HPI Eyes: no problem reported Ear, Nose, Mouth, Throat: no problem reported Respiratory: no dyspnea Cardiovascular: no chest pain Gastrointestinal: as per Subjective / HPI Genitourinary: as per Subjective / HPI Musculoskeletal: no problem reported Integumentary: no problem reported Neurologic: no problem reported Psychiatric: no problem reported Endocrine: no problem reported Physical Exam Constitutional: well developed and well nourished; no acute distress nontoxic Eyes: no scleral abnormality Neck: normal visual inspection Respiratory: normal respiratory effort and able to speak in complete sentences; no respiratory distress and no labored breathing Cardiovascular: Extremities: no calf tenderness and no pedal edema Gastrointestinal (Abdomen): Inspection/Auscultation: abdomen normal to inspection; abdomen not distended Percussion/Palpation: abdomen soft; abdomen nontender and no guarding Musculoskeletal: Head/Neck/Chest: normocephalic and head atraumatic Skin: no rashes, warm and dry Neurologic: moves all extremities and awake Psychiatric: Orientation: alert and oriented x 3 Genitourinary: no CVA tenderness Results & Data ([facility]) Vital Signs (Past 12 Hours) Vital Signs Temp Temp Temp Pulse Pulse Resp BP 02/21/21 06:35 39.2 C H 02/21/21 05:40 39.6 C H 02/21/21 04:45 39.1 C H 38.4 C H 39.1 C H 92 H 92 H 18 131/78 02/21/21 04:10 37.8 C H 02/21/21 03:10 37.7 C H 37.7 C H 75 75 18 104/70 02/21/21 02:10 38.6 C H 38.0 C H 78 18 108/68 02/21/21 01:10 39.1 C H 02/20/21 23:50 38.9 C H 82 18 121/78 02/20/21 22:00 38.6 C H Pulse Ox 02/21/21 06:35 02/21/21 05:40 02/21/21 04:45 96 02/21/21 04:10 02/21/21 03:10 96 02/21/21 02:10 95 02/21/21 01:10 02/20/21 23:50 98 02/20/21 22:00 PG Care Time/CCT Total # of Minutes Spent Total Time Spent with Patient: Total time spent is greater than 50% in coordination of care (as documented) at patient's floor/unit and/or counseling patient: Coding Level of Care Code 66171 Inpt Consult Level 4 Diagnoses Fever R50.9 Hydronephrosis, left N13.30
--- NOTE | 2021-02-21 10:19 | Medical Student Progress Note ---
Date of Service February 21, 2021 Assessment & Plan Admission and Anticipated Discharge Date Admission Date: February 19, 2021 (1) Persistent fever: 60 yo F with recent hysterectomy with BL oophorectomy 1 month ago ____, drainage of cervical cuff abscess with persistent post-op fever. Febrile on admission. Possible etiology: - Cervical cuff abscess measuring at 3 cm and possible cause of fever. Drained on this date CT on __ showed remnant - Continue Zosyn, Vancomycin, Levofloxacin - Elevated acute phase reactants (D-dimer and fibrinogen) - Lactate 1.4, procalcitonin 1.14 - Possible urovesical fistula identified on CT A/P with gas in bladder adjacent to pelvic abscess Post-op and post-hinojosa - Thrombus/septic phlebitis - D-Dimer 5k, Fibrinogen 628 - however - Lower Extremity US negative for DVT - no upper extremity PICC/procedure to suspect UE DVT - CT A/P negative for pelvic vein thromboses - Pulmonary Embolus - CTA Chest negative for PE (2) Transaminitis - Downtrending, avoid Tylenol and control fever with ibuprofen - Acetaminophen level <3, no need for NAC - History of nonalcoholic fatty liver disease - U/S of the Liver showed mild hepatic steatosis (3) Diabetes - Elevated blood sugars - A1C 7%, hx of elevated A1C in the past blood sugar checks, sliding scale (4) LADARIUS prerenal because - Cr 1.04 - NS bolus prior to CT scans - Continue fluids and monitor Cr with ibuprofen use for fevers (5) Hypokalemia - K 3.2, repleted DVT ppx: SCDs Dispo: PCU (2) Pelvic abscess in female: (3) Elevated liver enzymes: Mega Vinson is a 60 year old female 3 days post-op from a drainage of a cervical cuff abscess. She had a hysterectomy with b/t oophorectomy 1 month ago and was experiencing abdominal pain and fevers. She was found to have a 8.5 cm cervical cuff abscess drained in the OR and down to 3 cm on repeat imaging on 12/21. Throughout her hospital course she has also had elevated liver enzymes. She was started on Zosyn, Vancomycin, and Levofloxacin as well as heparin. This morning she still feels unwell. She had a headache yesterday but not today. She is experiencing fever, diaphoresis, and nausea. She is passing gas, urinating, and had a bowel movement this morning not significant for diarrhea or constipation. Review of Systems Review of Systems: All systems reviewed & are unremarkable except as noted in HPI & below Physical Exam Constitutional: well developed, well nourished and + ill appearing Eyes: PERRL, conjunctivae normal, anicteric sclerae Respiratory: normal respiratory effort, lungs clear to auscultation Cardiovascular: RRR, no murmur, no edema Gastrointestinal (Abdomen): normal bowel sounds, soft, nontender, no hepatosplenomegaly Results & Data ([facility]) Vital Signs (Past 12 Hours) Vital Signs Temp Temp Temp Pulse Pulse Resp BP 02/21/21 06:35 39.2 C H 02/21/21 05:40 39.6 C H 02/21/21 04:45 39.1 C H 38.4 C H 39.1 C H 92 H 92 H 18 131/78 02/21/21 04:10 37.8 C H 02/21/21 03:10 37.7 C H 37.7 C H 75 75 18 104/70 02/21/21 02:10 38.6 C H 38.0 C H 78 18 108/68 02/21/21 01:10 39.1 C H 02/20/21 23:50 38.9 C H 82 18 121/78 Pulse Ox 02/21/21 06:35 02/21/21 05:40 02/21/21 04:45 96 02/21/21 04:10 02/21/21 03:10 96 02/21/21 02:10 95 02/21/21 01:10 02/20/21 23:50 98
--- NOTE | 2021-02-21 10:28 | Ultrasound Report ---
US liver CLINICAL HISTORY: ELevated liver function testing COMPARISON STUDY: CT scan dated 02/20/2021 FINDINGS: The liver is of increased echogenicity, finding most likely secondary to hepatic steatosis. No focal hepatic masses are visualized. The liver is mildly enlarged measuring 20 cm. The gallbladder is surgically absent. There is no ductal dilatation. The common bile duct measures 6 mm. The pancreas appears normal as visualized. There is no right-sided hydronephrosis. There is a 2 cm right renal cyst. IMPRESSION: 1. Surgically absent gallbladder 2. Suspected mild hepatic steatosis 3. No ductal dilatation 4. 2 cm right renal cyst ACT 112: Negative or not required by law. Electronically signed by: Kirby Mir M.D. 02/21/2021 10:26 AM
[2021-02-21] MEDS ORDERED: DEXTROSE 50% 50 ML SYRINGE IV PRN (10:52)
[2021-02-21] MEDS ORDERED: GLUCOSE 10 TABS/TUBE PO PRN (10:52)
[2021-02-21] MEDS ORDERED: CARBOHYDRATES FOR HYPOGLYCEMIA PO PRN (10:52)
[2021-02-21] MEDS ORDERED: GLUCOSE 40% GEL 15 GM TUBE PO PRN (10:52)
[2021-02-21] MEDS ORDERED: GLUCAGON FOR INJ 1 MG VIAL SQ PRN (10:52)
[2021-02-21] MEDS: INSULIN ASPART 100 UNITS/ML 3 ML PEN SC SCH ×3 (11:49→21:43)
--- NOTE | 2021-02-21 12:51 | Hospitalist Progress Note ---
Date of Service February 21, 2021 Assessment & Plan (1) Pelvic abscess in female: Alisson is a 60-year-old female with a notable history of cervical HSIL recently s/p TAHBO approx. 1 month ago, with recovery course complicated by development of cervical cuff fluid collection s/p I&D 2 days ago; medicine service was consulted for aid in management of ongoing post-op fever despite antipyretics and transaminitis. She is hemodynamically stable. Postoperative Fever - In setting of recent pelvic surgery and I&D of cervical cuff fluid collection on 02/19 - Work-up as follows: - No significant leukocytosis, ESR wnl on 02/21 labs - Mild fever appreciated before procedure, however has been quite consistent and ongoing to ~37-39+C range over the last two days despite antipyretic use - Clinically, no significant focalized pain/discomfort: no unilateral leg swelling, no chest discomfort/SOB, no abdominal pain, no urinary symptoms - Given clinical findings AND negative LE Doppler + CTA-Chest, low suspicion this represents DVT or PE - In absence of urinary symptoms low suspicion for UTI - No GI distress that would be concerning for something like C. diff - After discussion with CHEMICAL PROCESSOR about clinical appearance of cervical cuff fluid collection, absence of anything growing on sample's culture, no blood culture, no leukocytosis, agree that these persistent fevers do not seem to be borne of an abscess, and rather more likely support septic pelvic thrombophlebitis Suspected Septic Pelvic Thrombophlebitis - In setting of recent abdominal surgery (TAHBO) approx. one month ago and ongoing fevers that have been minimally responsive to antipyretics, few days of antimicrobial therapy, lack of other possible source (w/u as above for post-op fever) - Continue antibiotics -- switched to Zosyn, which should provide adequate coverage of major pelvic organisms of concern - Begin therapeutic heparin gtt - Continue antipyretics p.r.n. for fever, bear-hugger (cold) to aid in temperature management -- would avoid acetaminophen during transaminitis resolution / acute liver injury - Consider CBC qAM Transaminitis / Suspected DILI - Noted to have transaminitis on admission (AST 345, ALT 191, ALP 545, TBili wnl ) - Patient reported taking 8-10 extra-strength Tylenol / day for the preceding few days prior to her arrival, which could certainly be the source of this acute liver injury \\ - acetaminophen level undetectable on serum testing - Asymptomatic on history, exam throughout this time - Hepatic US demonstrating mild hepatic steatosis, but surgically absent gallbladder, no ductal dilatation - Continue supportive care for now: plentiful IVF, avoidance of hepatotoxic meds - Recommend CMP qAM until resolution Acute Kidney Injury -- resolving - Baseline creatinine on chart review does appear to be between 0.6 - 1.0, no h/o CKD - Mild LADARIUS appreciated AM of 02/20 with Cr 1.28 --> has subsequently downtrended back to ULN of baseline - Noted on CT-A/P: persistent mild L hydroureteronephrosis with mild wall thickening of distal L ureter (in setting of h/o L ureteral stricture) - Urology following -- appreciate insight, recommendations on this - Suspect this was likely secondary to prerenal origin, especially considering improvement with fluids and setting of active inflammation - However, cannot r/o possibility of contribution from L - Continue mIVF for now, encourage fluid intake - Recommend CMP qAM, as above L Hydroureteronephrosis - With known history of L ureteral stricture requiring stenting in the past - CT-A/P here demonstrating "persistent mild left hydroureteronephrosis with mild wall thickening of the distal left ureter." - Urology already consulted, appreciate insight and recommendations with regards to any need for possible restenting / intervention (note - pt is on heparin) - Otherwise as above Type 2 Diabetes Mellitus - A1c on 02/20 noted at 7.0, which is within the diabetic range (also noted >7 back to 05/2020) - While here: AC/HS BSGs with SSI, goal range 100-140 for now -- can consider increasing to 140-180 if illness worsens - Will require dietary counselling, outpatient management once stable for discharge Chronic Medical Problems - HTN: Continue metoprolol, amlodipine (with hold parameters should BPs decrease) - Gout: Continue allopurinol - Hypothyroidism: Continue Synthroid - Mood: Continue Wellbutrin Code: FULL CODE Diet: CC PPX: hep gtt as above (therapeutic) Dispo: MS/Tele Consults: CHEMICAL PROCESSOR, Uro Thank you for this consultation. Please refer to Dr. Francisco's addendum for additional details. (2) Postoperative fever: Admission and Anticipated Discharge Date Admission Date: February 19, 2021 Supervising Physician Co-Signing Physician Notes I personally examined the patient and verified all worthy points of history and exam, discussed case, and agree with decision making with Dr Greer. Feeling okay. A little bit nauseous but not terrible. Trying to eat some but it is not sitting super well, but no vomiting. Notes ongoing fevers. Otherwise no acute complaints. No chest pain no shortness of breath no cough. No abdominal pain just nausea. No dysuria, no diarrhea. No rashes or painful skin areas. Vitals noted, in general she is awake and alert pleasant no distress. HEENT normocephalic atraumatic mucous membranes moist. Cardio is regular without rubs murmurs or gallops. Lungs are clear to auscultation bilaterally no rales rhonchi or wheezes good effort. No accessory muscle use. Abdomen is soft nondistended nontender no masses organomegaly. Extremities are without cyanosis clubbing or edema no calf tenderness. Skin shows no rashes no pallor or icterus no areas of erythema. No focal neuro deficits. Persistent feveragree with CHEMICAL PROCESSOR that septic pelvic thrombophlebitis is the most likely diagnosis. Particularly given that the question of abscess seems to have not been nearly as ominous as it appeared radiographically. She shows no other overt areas of bacterial infection. Continue Zosyn, continue anticoagulation, serial exams and lab work, repeat imaging as necessary. Follow clinically, and work-up further should she fail to improve or show any worsening. Otherwise as above. Subjective Patient seen at bedside this morning. Overall, does report feeling well. The history of present illness was reviewed with her, no significant additions or modifications to make. She denies any sort of abdominal pain. Denies any sort of vaginal discharge or irritation. Says that her fevers are frustrating and associated with intermittent chills and sweats. Says that her appetite is not great, but still does have some desire to eat. No nausea or vomiting. Denies any diarrhea. No headache. Review of Systems Review of Systems: Per HPI Physical Exam Physical Exam: General: 60yoF who does appears diaphoretic and mildly sick, but very pleasant and interactive in conversation. No pallor. NAD. HEENT: NCAT. Eyes - Sclera are white, anicteric, and without injection. PERRL. EOMs display full ROM bilaterally. Mouth - MMM with no tonsillar edema or exudates. Pulmonary: Good respiratory effort with symmetric expansion of the chest. No use of accessory muscles. No conversational dyspnea. Abdominal: Normoactive bowel sounds. Abdomen was soft, nondistended, and non- tender to palpation. Extremities: Upper and lower extremities are warm and well perfused Results & Data Results & Data ([facility]) Vital Signs (Past 12 Hours) Vital Signs Temp Temp Temp Pulse Pulse Resp BP 02/21/21 11:44 38.9 C H 90 20 147/86 H 02/21/21 11:02 90 29 H 02/21/21 10:36 81 31 H 02/21/21 09:01 37.3 C 83 16 99/55 L 02/21/21 09:00 82 15 02/21/21 08:36 82 16 02/21/21 06:35 39.2 C H 02/21/21 05:40 39.6 C H 02/21/21 04:45 39.1 C H 38.4 C H 39.1 C H 92 H 92 H 18 02/21/21 04:10 37.8 C H 02/21/21 03:10 37.7 C H 37.7 C H 75 75 18 02/21/21 02:10 38.6 C H 38.0 C H 78 18 02/21/21 01:10 39.1 C H BP Pulse Ox 02/21/21 11:44 96 02/21/21 11:02 02/21/21 10:36 02/21/21 09:01 02/21/21 09:00 95 02/21/21 08:36 02/21/21 06:35 02/21/21 05:40 02/21/21 04:45 131/78 96 02/21/21 04:10 02/21/21 03:10 104/70 96 02/21/21 02:10 108/68 95 02/21/21 01:10 Resident Activity Tracking Resident Involvement: Resident Care Provided Care Provided: Adult Hospital Medicine
[2021-02-21 16:03] LABS: Partial Thromboplastin Ratio 1.4; Partial Thromboplastin Time 37.2 Seconds (21.0-31.0)
--- NOTE | 2021-02-21 16:53 | Gynecologic Progress Note ---
Date of Service February 21, 2021 Assessment & Plan (1) Postoperative fever: (2) Pelvic abscess in female: (3) Postoperative thrombophlebitis: pt doing ok. temp curve still elevated. trying to keep her spirits up. eating, voiding, ambulating. saw her bp was lower, first time i saw that, she is sitting in her bed and does not feel unwell. sometimes today she felt woozy when laying down to sitting but currently feels fine, will see trend. iv heparin for suspected SPT. iv abx for prior presumed abscess. ospina cultures are neg, culture of pelvic collection neg. cont current care. appreciate hospitalist help in managing this patient and their input as well as urology following along. needs am labs. Admission and Anticipated Discharge Date Admission Date: February 19, 2021 Subjective pt feels ok. she is hoping the heparin works. she is eating, sitting up in bed. not dizzy or lightheaded. no cp or sob. no nausea but has diarrhea. she attributes that to the abx. she has no urinary sx. feels better with fan on. no pain. no vaginal drainage. +flatus Review of Systems Review of Systems: see hpi Physical Exam Constitutional: WD/WN, vitals as above Neurologic: grossly normal Psychiatric: A+Ox3, euthymic affect Results & Data ([facility]) Vital Signs (Past 12 Hours) Vital Signs Temp Temp Pulse Pulse Resp BP BP 02/21/21 15:29 100.2 F H 84 20 95/61 L 02/21/21 14:44 100.5 F H 02/21/21 14:00 91 H 02/21/21 13:15 102.9 F H 92 H 18 101/64 02/21/21 11:44 102.0 F H 90 20 147/86 H 02/21/21 11:02 90 29 H 02/21/21 10:36 81 31 H 02/21/21 09:01 99.1 F 83 16 99/55 L 02/21/21 09:00 82 15 02/21/21 08:36 82 16 02/21/21 06:35 102.6 F H 02/21/21 05:40 103.3 F H Pulse Ox 02/21/21 15:29 95 02/21/21 14:44 02/21/21 14:00 02/21/21 13:15 96 05/12/21 11:44 96 02/21/21 11:02 02/21/21 10:36 02/21/21 09:01 02/21/21 09:00 95 02/21/21 08:36 02/21/21 06:35 02/21/21 05:40 PG Care Time/CCT Total # of Minutes Spent Total Time Spent with Patient: Total time spent is greater than 50% in coordination of care (as documented) at patient's floor/unit and/or counseling patient: Coding Level of Care Code None Diagnoses Postoperative fever R50.82 Pelvic abscess in female N73.9 Postoperative thrombophlebitis T81.72XA
[2021-02-21] MEDS ORDERED: VANCOMYCIN HCL 1,250 MG in SODIUM CHLORIDE 0.9% 250 ML IV SCH (18:00)
[2021-02-21] MEDS ORDERED: HEPARIN SOD (PORCINE) 1000 UNIT/ML IV ONE (18:00)
--- NOTE | 2021-02-21 18:39 | Billing Data ---
Date of Service February 21, 2021 Coding Level of Care Code 84988 Subseq Hosp Care Lvl 3
[2021-02-21] MEDS: METOPROLOL SUCC 25MG EXT REL TAB PO SCH (20:32)
--- NOTE | 2021-02-21 22:56 | Billing Data ---
Date of Service February 21, 2021 Coding Level of Care Code 31738 Inpt Consult Level 4
[2021-02-22 00:38] LABS: Partial Thromboplastin Ratio 1.7; Partial Thromboplastin Time 44.1 Seconds (21.0-31.0)
[2021-02-22] MEDS: HEPARIN SODIUM/DEXTROSE 25,000 UNITS/500 ML BAG IV SCH ×2 (04:18→21:33)
[2021-02-22] MEDS: IBUPROFEN 600 MG TAB PO PRN ×2 (04:32→15:41)
[2021-02-22] MEDS: ONDANSETRON INJ 2 MG/ML 2 ML VIAL IV PRN (04:38)
[2021-02-22] MEDS: PIPERACILLIN/TAZOBACTAM 4.5 GM in DEXTROSE 5% 100 ML IV SCH ×3 (06:00→21:32)
[2021-02-22] MEDS: LEVOTHYROXINE SODIUM 150 MCG TABLET PO SCH (06:01)
--- NOTE | 2021-02-22 07:07 | Hospitalist Progress Note ---
Date of Service February 22, 2021 Assessment & Plan (1) Pelvic abscess in female: Alisson is a 60-year-old female with a notable history of cervical HSIL recently s/p TAHBO approx. 1 month ago, with recovery course complicated by development of cervical cuff fluid collection s/p I&D 2 days ago; medicine service was consulted for aid in management of ongoing post-op fever despite antipyretics and transaminitis. Current thought is that this is likely secondary to septic pelvic thrombophlebitis. She is hemodynamically stable. Postoperative Fever - In setting of recent pelvic surgery and I&D of cervical cuff fluid collection on 02/19 - Work-up as follows: - No significant leukocytosis, ESR wnl on 02/21 labs - Mild fever appreciated before procedure, however has been quite consistent and ongoing to ~37-39+C range over the last two days despite antipyretic use - Clinically, no significant focalized pain/discomfort: no unilateral leg swelling, no chest discomfort/SOB, no abdominal pain, no urinary symptoms - Given clinical findings AND negative LE Doppler + CTA-Chest, low suspicion this represents DVT or PE - In absence of urinary symptoms low suspicion for UTI - diarrhea x 2 this AM - will order C. diff labs - After discussion with MUSIC COORDINATOR about clinical appearance of cervical cuff fluid collection, absence of anything growing on sample's culture, no blood culture, no leukocytosis, agree that these persistent fevers do not seem to be borne of an abscess, and rather more likely support septic pelvic thrombophlebitis Suspected Septic Pelvic Thrombophlebitis - In setting of recent abdominal surgery (TAHBO) approx. one month ago and ongoing fevers that have been minimally responsive to antipyretics, few days of antimicrobial therapy, lack of other possible source (w/u as above for post-op fever) - Continue Zosyn - Therapeutic heparin gtt - Continue antipyretics p.r.n. for fever -- would avoid acetaminophen during transaminitis resolution / acute liver injury - Consider CBC qAM Normocytic Anemia - Baseline Hgb normal (02/08) = 13.8+ - Work-up as follows: - On arrival Hgb 11.8 (02/19) --> slowly downtrending to 8.8 (02/22) [present before hep] - No obvious source of bleeding -- add heme-occult - Normal LDH, relatively low and now nml bili -- low suspicion for hemolysis in setting of ongoing fevers - Low iron, transferrin, and saturation on labs 02/22 - Suspect dilutional, phlebotomy + iron deficiency as likely etiologies given ~3 point drop since arrival - Iron sucrose 200mg IV x 1 ordered Transaminitis / Suspected DILI -- nearly resolved - Noted to have transaminitis on admission (AST 345, ALT 191, ALP 545, TBili wnl) --> nearly resolved at this point with exception of ALP - Patient reported taking 8-10 extra-strength Tylenol / day for the preceding few days prior to her arrival, which could certainly be the source of this acute liver injury - Asymptomatic on history, exam throughout this time - Hepatic US demonstrating mild hepatic steatosis, but surgically absent gallbladder, no ductal dilatation - Continue supportive care for now: plentiful IVF, avoidance of hepatotoxic meds - Recommend CMP qAM until resolution Acute Kidney Injury -- resolved - Baseline creatinine on chart review does appear to be between 0.6 - 1.0, no h/ o CKD - Mild LADARIUS appreciated AM of 02/20 with Cr 1.28 --> has subsequently downtrended back to baseline - Noted on CT-A/P: persistent mild L hydroureteronephrosis with mild wall thickening of distal L ureter (in setting of h/o L ureteral stricture) - Suspect this was likely secondary to prerenal origin, especially considering improvement with fluids and setting of active inflammation - Continue mIVF for now, encourage fluid intake - Recommend CMP qAM, as above L Hydroureteronephrosis - With known history of L ureteral stricture requiring stenting in the past - CT-A/P here demonstrating "persistent mild left hydroureteronephrosis with mild wall thickening of the distal left ureter." - Urology already consulted, appreciate insight and recommendations with regards to any need for possible intervention - No indication planned at present. Continue to follow uro recs Type 2 Diabetes Mellitus - A1c on 02/20 noted at 7.0, which is within the diabetic range (also noted >7 back to 05/2020) - While here: AC/HS BSGs with SSI, goal range 100-140 for now -- can consider increasing to 140-180 if illness worsens - Will require dietary counselling, outpatient management once stable for discharge Chronic Medical Problems - HTN: Continue metoprolol, amlodipine (with hold parameters should BPs decrease) - Gout: Continue allopurinol - Hypothyroidism: Continue Synthroid - Mood: Continue Wellbutrin Code: FULL CODE Diet: CC, IVF PPX: hep gtt as above (therapeutic) Dispo: MS/Tele Consults: MUSIC COORDINATOR, Uro Thank you for this consultation. Please refer to Dr. Francisco's addendum for additional details. (2) Postoperative fever: Admission and Anticipated Discharge Date Admission Date: February 19, 2021 Supervising Physician Co-Signing Physician Notes I personally examined the patient and verified all worthy points of history and exam, discussed case, and agree with decision making with Dr Greer. no cp no sob no cough. no abdominal pain. a little nausea but ate some. no urinary sx. no skin rashes/painful lesions. Vitals noted, in general she is awake and alert pleasant no distress. HEENT normocephalic atraumatic mucous membranes moist. Cardio is regular without rubs murmurs or gallops. lungs faint rales bibasilar c/w atelectasis, otherwise cta b/l no r/r/w good effort. Abdomen is soft nondistended nontender no masses organomegaly. Extremities are without cyanosis clubbing or edema no calf tenderness. Skin shows no rashes no pallor or icterus no areas of erythema. No focal neuro deficits. Persistent feveragree with MUSIC COORDINATOR that septic pelvic thrombophlebitis is the most likely diagnosis. Particularly given that the question of abscess seems to have not been nearly as ominous as it appeared radiographically. She shows no other overt areas of bacterial infection. I do suspect she also has some atelectasis - which is probably contributory to fevers in addition to septic thrombophlebitis. coached on incentive spirometry and encouraged to use q1H while awake. Continue Zosyn, continue anticoagulation, serial exams and lab work, repeat imaging as necessary. Follow clinically, thus far progress is fairly reassuring. Otherwise as above. Subjective Feeling a little better today. Says she's really happy that she hasn't had a temp for the first time in a few days. Says she's still not having a great appetite and that still getting intermittently nauseous, but not as severe as before. Endorses some mild achiness at the postsurgical site but otherwise really no abdominal pain. +fatigue. No new vaginal discharge. Review of Systems Review of Systems: as per HPI Physical Exam Physical Exam: General: 60yoF who does appears diaphoretic and mildly sick, but very pleasant and interactive in conversation. Asleep on arrival but awakens easy. Compared to yesterday, does have a bit more color and energy. NAD. HEENT: NCAT. Eyes - Sclera are white, anicteric, and without injection. PERRL. EOMs display full ROM bilaterally. Mouth - MMM with no tonsillar edema or exudates. Cardiac: NRRR. S1/S2 present w/o m/r/g. Pulmonary: Good respiratory effort with symmetric expansion of the chest. No use of accessory muscles. No conversational dyspnea. Lungs CTAB without crackles or wheezes Abdominal: Normoactive bowel sounds. Abdomen was soft, nondistended, and non- tender to palpation. No suprapubic tenderness. Extremities: Upper and lower extremities are warm and well perfused. No leg pain. Results & Data Results & Data ([facility]) Vital Signs (Past 12 Hours) Vital Signs Temp Pulse Resp BP Pulse Ox 02/22/21 04:30 39.3 C H 93 H 18 129/82 93 02/21/21 23:44 38.1 C H 86 18 123/78 95 02/21/21 20:01 38.2 C H 95 H 20 139/77 93 Resident Activity Tracking Resident Involvement: Resident Care Provided Care Provided: Adult Hospital Medicine
[2021-02-22 07:11] LABS: Hematocrit (blood only) 26.6 % (37-47); Hemoglobin 8.8 g/dL (12.0-16.0); Mean Corpuscular Hemoglobin 27.9 pg (25-34); Mean Corpuscular Hgb Conc 33.1 g/dL (32-36); Mean Corpuscular Volume 84.4 fL (80-100); Mean Platelet Volume 9.9 fL (7.4-10.4); Platelet Count 245 K/uL (130-400); RDW Coefficient of Variation 14.1 % (11.5-14.5); RDW Standard Deviation 44.4 fL (36.4-46.3); Red Blood Count 3.15 M/uL (4.2-5.4); White Blood Count 11.23 K/uL (4.8-10.8)
[2021-02-22 07:40] LABS: Partial Thromboplastin Ratio 1.8
[2021-02-22 07:42] LABS: Albumin Level 1.7 gm/dl (3.4-5.0); BUN Creatinine Ratio 15.9 (10-20); Calcium 8.2 mg/dl (8.5-10.1); Creatinine Clr Calc Pharmacy 101.9 ml/min; Est GFR (African American) 114.4 ml/min; Est GFR (Non-African American) 98.7 ml/min
[2021-02-22 07:44] LABS: ALC (manual) 1.08 K/uL (1.2-3.4); ANC (manual) 9.95 K/uL (1.4-6.5); Lymphocytes # (manual) 1.08 K/uL (1.2-3.4); Lymphocytes % (manual) 9.6 %; Monocytes % (manual) 1.8 %; Neutrophils # (manual) 9.95 K/uL (1.4-6.5); Neutrophils % (manual) 88.6 %; RBC Morphology Unremarkable
[2021-02-22 07:50] LABS: Albumin Globulin Ratio 0.4 (0.9-2); Bilirubin,Total 0.8 mg/dl (0.2-1); Globulin 4.7 gm/dl (2.5-4.0); Total Protein 6.4 gm/dl (6.4-8.2)
[2021-02-22] MEDS: INSULIN ASPART 100 UNITS/ML 3 ML PEN SC SCH ×4 (07:57→21:33)
[2021-02-22] MEDS ORDERED: OPTIRAY 300 IV ONE (08:13)
[2021-02-22 08:18] LABS: Partial Thromboplastin Time 48.4 Seconds (21.0-31.0)
--- NOTE | 2021-02-22 08:20 | Urology Progress Note ---
Date of Service February 22, 2021 Assessment & Plan (1) Postoperative fever: (2) Hydronephrosis, left: 60 year old female with recent hysterectomy admitted for persistent post- operative fever and pain, vaginal cuff abscess. - Febrile overnight, current temp 36.7, undergoing workup for fever - possible pelvic thrombophlebitis - Lab work reviewed - creatinine 0.62, WBC 11.23, urine culture negative, BCx NGTD, repeat BCx 02/21 pending - No flank pain or urinary s/s - continue to monitor - IVP today - further recommendations pending results, unlikely intervention today - If concern for obstruction will reevaluate for left stent placement - Continue antibiotics, supportive care, and management per primary and medicine service - Will continue to monitor closely Admission and Anticipated Discharge Date Admission Date: February 19, 2021 Subjective Awake, sitting up in bed Reports fatigue, fevers overnight Notes fever broke this AM and feeling better at present No flank pain, mild discomfort across lower abdomen Nausea, but no vomiting Notes diarrhea Voiding without difficulty No dysuria or hematuria Chart review: Febrile overnight, Temp 36.7 this AM. Creatinine 0.62, WBC 11.23, Hgb 8.8. On IV Zosyn, Heparin gtt. No additional concerns today. Review of Systems Constitutional: as per Subjective / HPI Gastrointestinal: as per Subjective / HPI Genitourinary: as per Subjective / HPI Physical Exam Constitutional: well developed and well nourished; no acute distress Respiratory: normal respiratory effort and able to speak in complete sentences; no respiratory distress and no labored breathing Cardiovascular: Extremities: no pedal edema Gastrointestinal (Abdomen): Inspection/Auscultation: abdomen normal to inspection; abdomen not distended Percussion/Palpation: + abdomen tender (Mild generalized tenderness across lower abdomen) and abdomen soft; no guarding Musculoskeletal: Head/Neck/Chest: normocephalic and head atraumatic Skin: slightly diaphoretic Neurologic: moves all extremities and awake Psychiatric: A+Ox3, euthymic affect Genitourinary: no CVA tenderness Results & Data ([facility]) Vital Signs (Past 12 Hours) Vital Signs Temp Pulse Resp BP Pulse Ox 02/22/21 08:00 36.7 C 96 H 20 149/63 H 95 02/22/21 04:30 39.3 C H 93 H 18 129/82 93 02/21/21 23:44 38.1 C H 86 18 123/78 95 PG Care Time/CCT Total # of Minutes Spent Total Time Spent with Patient: Total time spent is greater than 50% in coordination of care (as documented) at patient's floor/unit and/or counseling patient: Coding Level of Care Code 80495 Subseq Hosp Care Lvl 2 Diagnoses Postoperative fever R50.82 Hydronephrosis, left N13.30
--- NOTE | 2021-02-22 08:22 | Gynecologic Progress Note ---
Date of Service February 22, 2021 Assessment & Plan (1) Postoperative fever: (2) Hydronephrosis, left: (3) Pelvic abscess in female: pt with continued fevers. creat has improved but awaiting further imaging regarding left kidney/ureter. heparin if spt was dx should have prob helped her fever curve by now. additionally her wbc count is up. has diarrhea since abx--do we need to check c.diff studies? will add cipro back to abx regimen. will get input from urology further today and discuss with hospitalist team further. hgb is creeping down, no source of active bleeding noted clinically. pt has been NPO since MI pending urologic evaluation. Addendum: spoke to hospitalist, will hold off on adding cipro for now, await urology further eval, cont current abx and heparin. give more time to respond unless something reveals itself more as etiology of fever. Admission and Anticipated Discharge Date Admission Date: February 19, 2021 Subjective pt seen this am. doing ok. she denies pain, no abdominal or flank pain at all. slight vaginal drainage, pink. voiding, eating. +flatus. fevers cont. denies cp/sob Physical Exam Constitutional: WD/WN, vitals as above Gastrointestinal (Abdomen): Percussion/Palpation: abdomen soft; abdomen no ntender and no guarding Musculoskeletal: nt calves Genitourinary: no CVA tenderness Results & Data ([facility]) Vital Signs (Past 12 Hours) Vital Signs Temp Pulse Resp BP Pulse Ox 02/22/21 08:00 98.1 F 96 H 20 149/63 H 95 02/22/21 04:30 102.7 F H 93 H 18 129/82 93 02/21/21 23:44 100.6 F H 86 18 123/78 95 PG Care Time/CCT Total # of Minutes Spent Total Time Spent with Patient: Total time spent is greater than 50% in coordination of care (as documented) at patient's floor/unit and/or counseling patient: Coding Level of Care Code None Diagnoses Postoperative fever R50.82 Hydronephrosis, left N13.30 Pelvic abscess in female N73.9
[2021-02-22 08:46] LABS: Ferritin 1790.3 ng/ml (8-388)
[2021-02-22] MEDS: allopurinoL 100 MG TAB PO SCH (09:30)
[2021-02-22] MEDS: amLODIPine BESYLATE 5 MG TAB PO SCH (09:30)
[2021-02-22] MEDS: buPROPion XL 150 MG TABCR PO SCH (09:31)
--- NOTE | 2021-02-22 09:43 | XRay Report ---
IV PYELOGRAM CLINICAL HISTORY: Ureteral obstruction. Left-sided hydronephrosis status post hysterectomy. Pelvic ab scess. COMPARISON STUDY: Abdominal CT dated 02/20/2021. TECHNIQUE: An abdominal apprentice architect radiograph is performed. IVP pyelogram was then performed following the IV administration of 100 cc of Optiray 300. Images are acquired in the corticomedullary and excretor y phases of enhancement. Overhead views of the renal collecting system and bladder were obtained in multiple obliquities both pre and post void. FINDINGS: The abdominal apprentice architect radiograph shows a nonobstructed bowel gas pattern. Cholecystectomy clips are see n in the right upper quadrant. Phleboliths are noted in the pelvis. The bony structures appear intact . Following contrast administration there is symmetric renal cortical enhancement and contrast excretio n. There is minimal left hydroureteronephrosis. The left ureter is mildly dilated to the level of the bladder. No hydronephrosis is seen on the right. No intraluminal filling defects are identified with in the renal pelvis or along the course of ureters. The bladder is normal as visualized. There is only a small post-void residual. No extraluminal contra st is identified. IMPRESSION: 1. There is minimal left hydroureteronephrosis, not significantly changed as compared to the CT scan. 2. No obstructing lesion is identified, and this is likely related to the known inflammatory process in the pelvis. 3. No extraluminal contrast is identified. ACT 112: Negative or not required by law. Electronically signed by: Refugio Blanco M.D. 02/22/2021 9:37 AM
[2021-02-22] MEDS: POTASSIUM CHLORIDE / WTR 10 MEQ/100 ML PLCT IV SCH ×2 (10:00→11:28)
[2021-02-22] MEDS: SODIUM CHLORIDE 0.9% 1000ML 1,000 ML IV SCH ×2 (12:31→15:44)
[2021-02-22] MEDS ORDERED: IRON SUCROSE 200 MG in 0.9 % SODIUM CHLORIDE 100 ML IV ONE (16:30)
--- NOTE | 2021-02-22 17:21 | Gynecologic Progress Note ---
Date of Service February 22, 2021 Assessment & Plan (1) Postoperative fever: (2) Postoperative thrombophlebitis: results of ivp noted and reviewed with pt seemingly responding to heparin with suspected SPT dx. will cont heparin and unasyn and see how temp curve does with more time. labs in am. denies questions. again aware I can speak to her family if she would like, declines at this time. Admission and Anticipated Discharge Date Admission Date: February 19, 2021 Subjective checked in with pt. she had great morning and afternoon, was afebrile and then she had recent temp spike, she said she could feel it. frustrated but overall ok. eating, voiding. ambul no problem. wrote down working dx for pt as her family is inquiring. happy to speak to any of her family, anytime. she is aware. Physical Exam Constitutional: WD/WN, vitals as above Results & Data ([facility]) Vital Signs (Past 12 Hours) Vital Signs Temp Pulse Pulse Resp BP Pulse Ox 02/22/21 15:00 101.5 F H 72 18 115/74 92 02/22/21 12:00 98.6 F 66 18 108/73 98 02/22/21 08:40 82 02/22/21 08:00 98.6 F 96 H 20 149/63 H 95 PG Care Time/CCT Total # of Minutes Spent Total Time Spent with Patient: Total time spent is greater than 50% in coordination of care (as documented) at patient's floor/unit and/or counseling patient: Coding Level of Care Code None Diagnoses Postoperative fever R50.82 Postoperative thrombophlebitis T81.72XA
--- NOTE | 2021-02-22 17:45 | Billing Data ---
Date of Service February 22, 2021 Coding Level of Care Code 49640 Subseq Hosp Care Lvl 3
[2021-02-22 21:04] LABS: Cdiff Antigen Positive; Cdiff Toxin A+B Negative Cdiff Toxin (Negative)
[2021-02-22] MEDS: METOPROLOL SUCC 25MG EXT REL TAB PO SCH (21:33)
[2021-02-23] MEDS: ONDANSETRON INJ 2 MG/ML 2 ML VIAL IV PRN ×3 (00:12→23:28)
[2021-02-23] MEDS ORDERED: VANCOMYCIN TROUGH ONE (05:30)
[2021-02-23] MEDS: PIPERACILLIN/TAZOBACTAM 4.5 GM in DEXTROSE 5% 100 ML IV SCH ×3 (05:56→21:36)
[2021-02-23] MEDS: LEVOTHYROXINE SODIUM 150 MCG TABLET PO SCH (05:57)
[2021-02-23 06:21] LABS: Basophils # (auto) 0.05 K/uL (0-0.2); Basophils % (auto) 0.3 %; Eosinophils # (auto) 0.05 K/uL (0-0.5); Eosinophils % (auto) 0.3 %; Hematocrit (blood only) 26.9 % (37-47); Hemoglobin 9.1 g/dL (12.0-16.0); Immature Granulocytes # (auto) 0.42 K/uL (0.00-0.02); Immature Granulocytes % (auto) 2.5 %; Lymphocytes # (auto) 2.91 K/uL (1.2-3.4); Lymphocytes % (auto) 17.2 %; Mean Corpuscular Hemoglobin 27.9 pg (25-34); Mean Corpuscular Hgb Conc 33.8 g/dL (32-36); Mean Corpuscular Volume 82.5 fL (80-100); Monocytes # (auto) 1.19 K/uL (0.11-0.59); Monocytes % (auto) 7.1 %; Neutrophils # (auto) 12.25 K/uL (1.4-6.5); Neutrophils % (auto) 72.6 %; Platelet Count 317 K/uL (130-400); RDW Coefficient of Variation 14.2 % (11.5-14.5); RDW Standard Deviation 43.3 fL (36.4-46.3); Red Blood Count 3.26 M/uL (4.2-5.4); White Blood Count 16.87 K/uL (4.8-10.8)
[2021-02-23 06:29] LABS: Partial Thromboplastin Ratio 1.5; Partial Thromboplastin Time 40.2 Seconds (21.0-31.0)
--- NOTE | 2021-02-23 06:34 | Communication Note ---
Date of Service: February 23, 2021
[2021-02-23 06:48] LABS: Albumin Level 1.7 gm/dl (3.4-5.0); BUN Creatinine Ratio 13.6 (10-20); Calcium 8.9 mg/dl (8.5-10.1); Creatinine Clr Calc Pharmacy 117.1 ml/min; Est GFR (African American) 119.7 ml/min; Est GFR (Non-African American) 103.3 ml/min; Potassium 2.9 mmol/L (3.5-5.1)
[2021-02-23 06:51] LABS: Albumin Globulin Ratio 0.3 (0.9-2); Bilirubin,Total 0.8 mg/dl (0.2-1); Globulin 5.5 gm/dl (2.5-4.0); Total Protein 7.2 gm/dl (6.4-8.2)
[2021-02-23] MEDS: SODIUM CHLORIDE 0.9% 1000ML 1,000 ML IV SCH (07:49)
--- NOTE | 2021-02-23 07:51 | XRay Report ---
XR chest 1V portable HISTORY: 60 years-old Female new hypoxia acute hypoxia COMPARISON: CTA chest 02/20/2021, chest radiograph 02/08/2021 TECHNIQUE: Portable AP view of the chest FINDINGS: Cardiac silhouette is enlarged. Pulmonary vascular congestion with interval development of reticular interstitial opacities and ill-defined bibasilar densities. Mild blunting of the costophrenic angles. No pneumothorax or large pleural effusion. Right shoulder rotator cuff calcific tendinosis. IMPRESSION: Cardiomegaly with interval development of pulmonary edema and bibasilar opacities suggest priti of atelectasis. ACT 112: Negative or not required by law. The above report was generated using voice recognition software. It may contain grammatical, syntax o r spelling errors. Electronically signed by: Brady Vivas M.D. 02/23/2021 7:50 AM
[2021-02-23] MEDS ORDERED: FUROSEMIDE 60 MG in SYRINGE 0 ML IV ONE (08:06)
--- NOTE | 2021-02-23 08:12 | Hospitalist Progress Note ---
Date of Service February 23, 2021 Assessment & Plan (1) Pelvic abscess in female: Alisson is a 60-year-old female with a notable history of cervical HSIL recently s/p TAHBO approx. 1 month ago, with recovery course complicated by development of cervical cuff fluid collection s/p I&D 2 days ago; medicine service was consulted for aid in management of ongoing post-op fever despite antipyretics and transaminitis. Current thought is that this is likely secondary to septic pelvic thrombophlebitis. She is hemodynamically stable. Acute Hypoxic Respiratory Failure -- Improving - Reporting HART overnight 02/22- - Subsequently requiring supp O2 via NC -- generally about 2-3L to maintain SpO2 >90% - Work-up as follows: - No concurrent chest pain, tachycardia - Lung exam today notable for crackles bibasilarly extending up to mid-lung pickett - CXR demonstrating increased interstitial markings, c/f pulmonary edema - Up +6L cumulatively since admission - Suspect this is secondary to volume overload - While +leukocytosis this AM, fever curve actually getting better -- no other respiratory illness like symptoms, lower suspicion this may represent a new PNA but considered - Lasix 60mg IV x 1, consider repeat/daily doses p.r.n. - If no improvement despite Lasix, repeat CXR --> r/o PNA - Echo ordered - Monitor I+Os - Maintain SpO2 >90-92% Leukocytosis - Leukocytosis to ~17 noted 02/23 w/ prominent PMNs, monocytes w/ left shift in setting of ongoing SPT - CRP largely unchanged today, elevated at 27 - In setting of fever curve improving and patient clinically appearing better, most likely suspect this represent stress demargination - However given new O2 requirement and HART, PNA considered too - although AHRF still seems more likely d/t volume ocerload - Cervical cuff fluid collection also considered - ?pus/abscess collection - Continue to trend -- if worsening clinically and/or leukocytosis continues to increase, could consider reimaging cervical cuff collection +/- CXR - Add procal Suspected Septic Pelvic Thrombophlebitis - In setting of recent abdominal surgery (TAHBO) approx. one month ago and ongoing fevers that have been minimally responsive to antipyretics, few days of antimicrobial therapy, lack of other possible source (w/u as above for post-op fever) - Continue Zosyn - Therapeutic heparin gtt - Continue antipyretics p.r.n. for fever -- would avoid acetaminophen during transaminitis resolution / acute liver injury - Given that fevers are improving w/ hep gtt and abx after ~48 hours, seems more and more likely that postoperative fever does represent SPT - Consider CBC qAM Postoperative Fever -- improving - In setting of recent pelvic surgery and I&D of cervical cuff fluid collection on 02/19 - Work-up as follows: - No significant leukocytosis, ESR wnl on 02/21 labs - Mild fever appreciated before procedure, however was quite consistent and ongoing to ~37-39+C range in following 3 days despite antipyretics - Clinically, no significant focalized pain/discomfort: no unilateral leg swelling, no chest discomfort/SOB, no abdominal pain, no urinary symptoms - Given clinical findings AND negative LE Doppler + CTA-Chest, low suspicion this represents DVT or PE - In absence of urinary symptoms low suspicion for UTI - diarrhea x 2 this AM - will order C. diff labs - After discussion with ORGANIZATIONAL DEVELOPMENT MANAGER about clinical appearance of cervical cuff fluid collection, absence of anything growing on sample's culture, no blood culture, no leukocytosis, agree that these persistent fevers do not seem to be borne of an abscess, and rather more likely support septic pelvic thrombophlebitis - These do appear to be improving -- no fevers through last night, and average fever temperature is coming down. Will monitor. Normocytic Anemia -- stable around ~9 - Baseline Hgb normal (02/08) = 13.8+ - Work-up as follows: - On arrival Hgb 11.8 (02/19) --> slowly downtrending to 8.8 (02/22) [present before hep] - No obvious source of bleeding -- add heme-occult - Normal LDH, relatively low and now nml bili -- low suspicion for hemolysis in setting of ongoing fevers - Low iron, transferrin, and saturation on labs 02/22 - Suspect dilutional, phlebotomy + iron deficiency as likely etiologies given ~3 point drop since arrival - s/p Iron sucrose 200mg IV x 1 - Will monitor Transaminitis / Suspected DILI -- nearly resolved - Noted to have transaminitis on admission (AST 345, ALT 191, ALP 545, TBili wnl) --> nearly resolved at this point with exception of ALP - Patient reported taking 8-10 extra-strength Tylenol / day for the preceding few days prior to her arrival, which could certainly be the source of this acute liver injury - Asymptomatic on history, exam throughout this time - Hepatic US demonstrating mild hepatic steatosis, but surgically absent gallbla dder, no ductal dilatation - Continue supportive care for now - Nearly resolved on 02/23 AM labs - Recommend CMP qAM until resolution Acute Kidney Injury -- resolved - Baseline creatinine on chart review does appear to be between 0.6 - 1.0, no h/o CKD - Mild LADARIUS appreciated AM of 02/20 with Cr 1.28 --> has subsequently downtrended back to baseline - Suspect this was likely secondary to prerenal origin, especially considering improvement with fluids and setting of active inflammation - Will monitor L Hydroureteronephrosis - With known history of L ureteral stricture requiring stenting in the past - CT-A/P here demonstrating "persistent mild left hydroureteronephrosis with mild wall thickening of the distal left ureter." - Urology already consulted, appreciate insight and recommendations with regards to any need for possible intervention - No indication planned at present. Continue to follow uro recs Type 2 Diabetes Mellitus - A1c on 02/20 noted at 7.0, which is within the diabetic range (also noted >7 back to 05/2020) - While here: AC/HS BSGs with SSI, goal range 100-140 for now -- can consider increasing to 140-180 if illness worsens - Will require dietary counselling, outpatient management once stable for discharge Chronic Medical Problems - HTN: Continue metoprolol, amlodipine (with hold parameters should BPs decrease) - Gout: Continue allopurinol - Hypothyroidism: Continue Synthroid - Mood: Continue Wellbutrin Code: FULL CODE Diet: CC, IVF PPX: hep gtt as above (therapeutic) Dispo: MS/Tele Consults: ORGANIZATIONAL DEVELOPMENT MANAGER, Uro Thank you for this consultation. Please refer to Dr. Francisco's addendum for additional details. (2) Postoperative fever: Admission and Anticipated Discharge Date Admission Date: February 19, 2021 Supervising Physician Co-Signing Physician Notes I personally examined the patient and verified all worthy points of history and exam, discussed case, and agree with decision making with Dr Greer. Seen twice today. Whenever I see her this morning her shortness of breath is improving but still there. Later in the afternoon is essentially gone. Vitals noted, in general she is awake and alert pleasant no distress. HEENT normocephalic atraumatic mucous membranes moist. Cardio is regular without rubs murmurs or gallops. Lungs this morning bibasilar rales about a third of the way up, this afternoon very faint bibasilar rales only at the bottom. Abdomen is soft nondistended nontender no masses organomegaly. Extremities are without cyanosis clubbing or edema no calf tenderness. Skin shows no rashes no pallor or icterus no areas of erythema. No focal neuro deficits. Persistent feveragree with ORGANIZATIONAL DEVELOPMENT MANAGER that septic pelvic thrombophlebitis is the most likely diagnosis. Particularly given that the question of abscess seems to have not been nearly as ominous as it appeared radiographically. She shows no other overt areas of bacterial infection. Fever has improved. Continue current care. Leukocytosisvery nonspecific given her fevers improved, her CRP is stable, her pro-Alonzo is trended down. Other than the septic pelvic thrombophlebitis, and the ongoing question of likely not a pelvic abscess, she shows no other areas of infection. Continue to follow closely and trend, but I see no clear signs of new area of infection or new signs of concern. Acute pulmonary edema/acute diastolic CHFdiurese. I doubt this will be a chronic issue. Mild pulmonary hypertension noted on echolikely will need sleep study to screen for sleep apnea as an outpatient Otherwise as above. Subjective Dyspnea on exertion that began overnight -- subsequently required 2-3L/O2 via NC. No chest pain or palpitations throughout all of this. Says this has continued into this morning, but is certainly relieved by rest. Otherwise reports that belly feels full, but no pain or pelvic discomfort. No nausea or vomiting. Appetite still not great. Other than this, feeling OK. Not much sleep last night. Review of Systems Review of Systems: as per HPI Physical Exam Physical Exam: General: Tired-appearing 60yoF who is lying back in her hospital bed, appearing fatigued, upon my arrival. Cardiac: Normal rate and regular rhythm; S1 and S2 are present with very soft grade 1/6 NELY best heard at the RUSB-LUSBs -- difficult to appreciate over mia th sounds. No r/g otherwise. No gross JVD could be appreciated -- however, difficult to assess given habitus. Pulmonary: Mild increase in respiratory effort with mild conversation dyspnea. No use of accessory muscles. Lungs demonstrated coarse crackles bibasilarly, extending up to the mid-lung pickett b/l. No wheezing. Abdominal: Normoactive bowel sounds. Abdomen was soft, very mildly distended, and non-tender to palpation. Extremities: Upper and lower extremities are warm and well perfused. No peripheral edema. Results & Data Results & Data ([facility]) Vital Signs (Past 12 Hours) Vital Signs Temp Pulse Pulse Resp BP Pulse Ox 02/23/21 07:50 37.6 C H 66 84 19 149/91 H 94 02/23/21 03:44 37.5 C 85 18 138/76 95 02/22/21 23:57 36.9 C 86 20 117/69 91 Resident Activity Tracking Resident Involvement: Resident Care Provided Care Provided: Adult Hospital Medicine
--- NOTE | 2021-02-23 08:18 | XRay Report ---
KUB CLINICAL HISTORY: Generalized abdominal pain. FINDINGS: An AP, portable, supine abdominal radiograph is correlated with abdominal CT dated . Cholecystectomy clips are seen in the right upper quadrant. There is a nonobstructed abdominal bow el gas pattern. No abnormal abdominal calcifications are identified. Phleboliths are seen in the pelv is. The skeletal structures are osteopenic and appear intact. Lumbosacral spondylosis is noted. IMPRESSION: Nonobstructed abdominal bowel gas pattern. Electronically signed by: Refugio Blanco M.D. 02/23/2021 8:17 AM
[2021-02-23] MEDS ORDERED: FUROSEMIDE 40 MG/4 ML VIAL IV ONE ×2 (08:29→08:45)
[2021-02-23] MEDS: INSULIN ASPART 100 UNITS/ML 3 ML PEN SC SCH ×4 (08:30→21:30)
[2021-02-23] MEDS ORDERED: POTASSIUM CHLORIDE CRTAB 20 MEQ TABCR PO STA (09:04)
[2021-02-23] MEDS: allopurinoL 100 MG TAB PO SCH (09:06)
[2021-02-23] MEDS: amLODIPine BESYLATE 5 MG TAB PO SCH (09:06)
[2021-02-23] MEDS: buPROPion XL 150 MG TABCR PO SCH (09:07)
[2021-02-23] MEDS: HEPARIN SODIUM/DEXTROSE 25,000 UNITS/500 ML BAG IV SCH ×3 (10:08→15:08)
--- NOTE | 2021-02-23 11:15 | Urology Progress Note ---
Date of Service February 23, 2021 Assessment & Plan (1) Hydronephrosis, left: 60 year old female with recent hysterectomy admitted for persistent post- operative fever and pain, vaginal cuff abscess. - Afebrile overnight, last fever 38.6 on 02/22 at 1500, her fever work-up revealed probable pelvic thrombophlebitis - Lab work reviewed - creatinine 0.54, WBC 16.87, urine culture negative, BCx NGTD, repeat BCx 02/21 NGTD - No flank pain or urinary s/s - IVP revealed minimal left hydronephrosis, no obstructing lesion is identified - Given minimal hydronephrosis and normal creatinine, stent placement not indicated at this time - Continue antibiotics, supportive care, and management per primary and medicine service - Will arrange outpatient follow-up with our service for ongoing management Thank you for allowing us to participate in the acute care of Ms. Perez. Please reconsult us with additional questions, concerns or changes in patient status. Admission and Anticipated Discharge Date Admission Date: February 19, 2021 Subjective Reports some generalized abdominal discomfort, no flank pain Reports she needed supplemental oxygen last night. CXR showed pulmonary edema. She was given Lasix this AM and reports her breathing has improved Voiding without difficulty, no dysuria or hematuria Mild nausea, no vomiting. BM this AM Denies fever or chills at present No additional concerns today IVP reviewed and demonstrates minimal left hydroureteronephrosis, not significantly changed as compared to the 02/20/2021 CT scan. No obstructing lesion is identified, and this is likely related to the known inflammatory process in the pelvis. Chart review: Afebrile overnight, last fever 38.6 on 02/22 at 1500, creatinine 0.54, WBC 16.87, Hgb 9.1, urine culture negative, BCx NGTD, repeat BCx 02/21 NGTD, On IV Zosyn and Heparin gtt. Review of Systems Constitutional: as per Subjective / HPI Respiratory: as per Subjective / HPI Gastrointestinal: as per Subjective / HPI Genitourinary: as per Subjective / HPI Physical Exam Constitutional: well developed, well nourished and + obese; no acute distress Respiratory: normal respiratory effort and able to speak in complete sentences; no respiratory distress and no labored breathing Gastrointestinal (Abdomen): Inspection/Auscultation: abdomen normal to inspection; abdomen not distended Musculoskeletal: Head/Neck/Chest: normocephalic and head atraumatic Neurologic: moves all extremities and awake Psychiatric: Orientation: alert and oriented x 3 Results & Data ([facility]) Vital Signs (Past 12 Hours) Vital Signs Temp Pulse Pulse Resp BP Pulse Ox 02/23/21 07:50 37.6 C H 66 84 19 149/91 H 94 02/23/21 03:44 37.5 C 85 18 138/76 95 02/22/21 23:57 36.9 C 86 20 117/69 91 PG Care Time/CCT Total # of Minutes Spent Total Time Spent with Patient: Total time spent is greater than 50% in coordination of care (as documented) at patient's floor/unit and/or counseling patient: Coding Level of Care Code 29985 Subseq Hosp Care Lvl 2 Diagnoses Hydronephrosis, left N13.30
[2021-02-23] MEDS: IBUPROFEN 600 MG TAB PO PRN (11:24)
[2021-02-23 12:50] LABS: Partial Thromboplastin Ratio 1.4; Partial Thromboplastin Time 37.8 Seconds (21.0-31.0)
[2021-02-23] MEDS ORDERED: HEPARIN SOD (PORCINE) 1000 UNIT/ML IV ONE ×2 (12:59→20:49)
--- NOTE | 2021-02-23 13:50 | Gynecologic Progress Note ---
Date of Service February 23, 2021 Assessment & Plan (1) Postoperative thrombophlebitis: (2) Postoperative fever: (3) Pelvic abscess in female: Patient is seemingly better from my standpoint as far as temp curve on heparin and unasyn for presumed spt and h/o pelvic abscess. she has no pain in pelvis or pressure. her temp curve is improving and her heparin appears to be subtherapeutic. she feels better and although has discussed with me possible transfer to [facility], she does not want to do that if we think she is clinically able to stay. she is having her new onset pulmonary edema managed by hospitalist service and agree some setbacks with that however overall not clinically decompensating. spoke to managed care nurse onc at [facility] and d/w pt that if worsens or concern for recollection is had, would plan transfer to [facility] although at anytime they are willing to assist. if recollection suspected would try to drain with IR but that service not avail on weekend. I am not certain that the original collection was significant but would cont unasyn and aware of trend of wbc. appreciate help of hospitalist and if clinically better from respiratory standpoint hopefully can move to floor. Appreciate urology input as well. Admission and Anticipated Discharge Date Admission Date: February 19, 2021 Subjective Saw this patient this am at about 830 and again just now. She feels well. Feeling better since overnight when she had SOB and dx with pulm edema. Was given lasix and says she had alot of response. Just came back from ECHO. She is sitting by bedside and its the first time I have seen sitting, usually lying in bed. She does not have fever. She notes temp was taken by aid and she knew it wasn't as high as aide said and retaken by nurse and 99.9. She is eating, voiding alot, not sob, no cp. still some diarrhea. no vaginal drainage. she has seen hospitalist and aware i have communicated with them, her spouse and gynonc at [facility]. no abd pain, had neg kub this am. +flatus. Review of Systems Constitutional: as per Subjective / HPI Physical Exam Constitutional: WD/WN, vitals as above Respiratory: normal respiratory effort; no respiratory distress and no labored breathing Auscultation: + crackles (basilar bilat, otherwise clear. ) Gastrointestinal (Abdomen): Percussion/Palpation: abdomen soft; abdomen nontender Neurologic: grossly normal Psychiatric: A+Ox3, euthymic affect Results & Data ([facility]) Vital Signs (Past 12 Hours) Vital Signs Temp Pulse Pulse Resp BP Pulse Ox 02/23/21 11:48 99.9 F H 86 19 156/82 H 92 02/23/21 07:50 99.7 F H 66 84 19 149/91 H 94 02/23/21 03:44 99.5 F 85 18 138/76 95 PG Care Time/CCT Total # of Minutes Spent Total Time Spent with Patient: Total time spent is greater than 50% in coordination of care (as documented) at patient's floor/unit and/or counseling patient: Coding Level of Care Code None Diagnoses Postoperative thrombophlebitis T81.72XA Postoperative fever R50.82 Pelvic abscess in female N73.9
--- NOTE | 2021-02-23 14:33 | Communication Note ---
Date of Service: February 23, 2021 Spoke to patients daughter louise and earlier her as mentioned in prior note. she gave me her daughter's number and wanted me to call her. reviewed cou rse and current plan. answered questions to best of my ability. reviewed nature of complication and current course and setbacks. seemingly improving with current course.
--- NOTE | 2021-02-23 16:43 | XCELERA ---
[id number]
--- NOTE | 2021-02-23 18:11 | Billing Data ---
Date of Service February 23, 2021 Coding Level of Care Code 65672 Subseq Hosp Care Lvl 3
[2021-02-23 20:24] LABS: Partial Thromboplastin Ratio 1.4; Partial Thromboplastin Time 37.1 Seconds (21.0-31.0)
[2021-02-23] MEDS ORDERED: HEPARIN IV BOLUS 3,000 UNITS in SYRINGE 0 ML IV STA (20:52)
[2021-02-23] MEDS: METOPROLOL SUCC 25MG EXT REL TAB PO SCH (21:30)
[2021-02-24 04:15] LABS: Hemoglobin 8.6 g/dL (12.0-16.0); Mean Corpuscular Hemoglobin 28.2 pg (25-34); Mean Corpuscular Hgb Conc 34.4 g/dL (32-36); Mean Platelet Volume 9.8 fL (7.4-10.4); Platelet Count 349 K/uL (130-400); RDW Coefficient of Variation 14.1 % (11.5-14.5); RDW Standard Deviation 42.9 fL (36.4-46.3); Red Blood Count 3.05 M/uL (4.2-5.4); White Blood Count 16.59 K/uL (4.8-10.8)
[2021-02-24 04:28] LABS: Partial Thromboplastin Ratio 1.6; Partial Thromboplastin Time 41.8 Seconds (21.0-31.0)
[2021-02-24 04:34] LABS: Albumin Level 1.7 gm/dl (3.4-5.0); BUN Creatinine Ratio 16.9 (10-20); Calcium 8.1 mg/dl (8.5-10.1); Creatinine Clr Calc Pharmacy 98.5 ml/min; Est GFR (African American) 113.2 ml/min; Est GFR (Non-African American) 97.7 ml/min; Potassium 2.8 mmol/L (3.5-5.1)
[2021-02-24 04:36] LABS: Albumin Globulin Ratio 0.3 (0.9-2); Bilirubin,Total 0.5 mg/dl (0.2-1); C Reactive Protein 16.5 mg/dl (0-0.29); Globulin 5.2 gm/dl (2.5-4.0); Total Protein 6.9 gm/dl (6.4-8.2)
[2021-02-24] MEDS: HEPARIN SODIUM/DEXTROSE 25,000 UNITS/500 ML BAG IV SCH ×3 (04:38→18:06)
[2021-02-24 04:56] LABS: Basophils # (auto) 0.06 K/uL (0-0.2); Basophils % (auto) 0.4 %; Eosinophils # (auto) 0.16 K/uL (0-0.5); Immature Granulocytes % (auto) 5.4 %; Lymphocytes % (auto) 20.5 %; Monocytes # (auto) 1.43 K/uL (0.11-0.59); Monocytes % (auto) 8.6 %; Neutrophils # (auto) 10.64 K/uL (1.4-6.5); Neutrophils % (auto) 64.1 %
[2021-02-24] MEDS: PIPERACILLIN/TAZOBACTAM 4.5 GM in DEXTROSE 5% 100 ML IV SCH ×3 (05:42→21:43)
[2021-02-24] MEDS: LEVOTHYROXINE SODIUM 150 MCG TABLET PO SCH (05:42)
[2021-02-24] MEDS: IBUPROFEN 600 MG TAB PO PRN (05:43)
--- NOTE | 2021-02-24 06:17 | Hospitalist Progress Note ---
Date of Service February 24, 2021 Assessment & Plan (1) Pelvic abscess in female: Alisson Perez is a 60 y/o F w/ DM2 and s/p TAHBO 3 wks prior to admission who presented w/ post-op fever and septic thrombophlebitis and is a consult from the [employer] service. SHe has continued to have daily fevers despite antipyretics and antibiotics (IV Zosyn), though the fever frequency has decreased from ~constant at admission to 1x/day. She likely has a superimposed candidemia as noted by blood cultures and IV capsofungin was added on 02/24/21. Suspected Septic Pelvic Thrombophlebitis - In setting of recent abdominal surgery (TAHBO) - Continue Zosyn. patient's symptoms and fever curve showed improvement on Zosyn alone - Therapeutic heparin gtt - Continue antipyretics p.r.n. for fever -- would avoid acetaminophen during transaminitis resolution / acute liver injury - Check CBC qAM Postoperative Fever, improving - In setting of recent pelvic surgery and I&D of cervical cuff fluid collection on 02/19 - 02/24: 02/19 and 02/21 prelim BC growing yosvany. Adding IV capsofungin. - Given clinical improvement and decreased frequency of fevers on IV Zosyn w/o antifungal coverage, patient may have superimposed candidemia, but not as the main cause of her postop fever. - Candidemia would be consistent w/ patient's added hx of mild yeast infection type symptoms prior to her surgery. Candidemia - as above - As of 02/24 afternoon, patient has been afebrile since starting IV capsofungin 02/24 AM. - consult ID Acute Hypoxic Respiratory Failure, nearly resolved - HART overnight 02/22- w/ 2-3L O2 requirement via NC. Crackles on exam. CXR c/w pulm edema. Net +6L. s/p Lasix 60mg IVx1 on 02/23 w/ signifcant improvement. - 02/24: minimal crackles. back on room air. patient reports that her respiratory status is back to baseline. TTE: EF 60-65%. No RWMA. Mild pulm HTN. Leukocytosis - Leukocytosis to upper 16s noted 02/23 w/ prominent PMNs, monocytes w/ left shift in setting of ongoing SPT. Relatively unchanged on 02/24 - trend from 02/21-02/24: 7.84->11.23->16.87->16.59 - CRP 02/22->02/24. 27.5->27.4->16.5 - Continue to trend -- if worsening clinically and/or leukocytosis continues to increase, could consider reimaging cervical cuff collection +/- CXR - Will monitor for change after starting IV capsofungin on 02/24 Normocytic Anemia, stable around ~9 - Baseline Hgb normal (02/08) = 13.8+ - Suspect dilutional, phlebotomy + iron deficiency as likely etiologies given ~3 point drop since arrival - s/p Iron sucrose 200mg IV x 1 - Will monitor Transaminitis / Suspected DILI -- nearly resolved - Noted to have transaminitis on admission (AST 345, ALT 191, ALP 545, TBili wnl) --> nearly resolved at this point with exception of ALP - Continue supportive care Acute Kidney Injury, resolved L Hydroureteronephrosis - With known history of L ureteral stricture requiring stenting in the past - CT-A/P here demonstrating "persistent mild left hydroureteronephrosis with mild wall thickening of the distal left ureter." - Urology already consulted, appreciate insight and recommendations with regards to any need for possible intervention - No indication planned at present. Continue to follow uro recs Type 2 Diabetes Mellitus - A1c on 02/20: 7.0, - While here: AC/HS BSGs with SSI, goal range 100-140 for now -- can consider increasing to 140-180 if illness worsens - Will require dietary counselling, outpatient management once stable for discharge Chronic Medical Problems - HTN: Continue metoprolol, amlodipine - Gout: Continue allopurinol - Hypothyroidism: Continue Synthroid - Mood: Continue Wellbutrin Code: FULL Diet: DM2 PPX: hep gtt Dispo: med/surg tele. dispo date depending on resolution of fevers (2) Postoperative fever: (3) Type 2 diabetes mellitus: (4) NAFLD (nonalcoholic fatty liver disease): (5) Postoperative thrombophlebitis: (6) Hydronephrosis, left: (7) Elevated liver enzymes: (8) HTN (hypertension): (9) Hypothyroidism: (10) Gout: (11) Leukocytosis: (12) Candidemia: Admission and Anticipated Discharge Date Admission Date: February 19, 2021 Supervising Physician Co-Signing Physician Notes I personally examined the patient and verified all worthy points of history and exam, discussed case, and agree with decision making with Dr Ramirez. Overall feeling better. Breathing is better. Feels generally well overall now. Discussed yeast on blood cultures. Vitals noted, in general she is awake and alert pleasant no distress. HEENT normocephalic atraumatic mucous membranes moist. Lungs with very faint bibasilar rales otherwise clear no other rales rhonchi or wheezes good effort.Extremities are without cyanosis. Skin shows no rashes no pallor or icterus no areas of erythema. No focal neuro deficits. Persistent feverher blood cultures showing yeast raised the possibility of a slow smoldering fungemia, but at the same time her fever curve earlier in the week seemed inconsistent with bacteremia/fungemia type presentations most of the timeespecially in somebody who is immunocompetentso I really wonder if septic pelvic thrombophlebitis and fungemia are at play. Given that she has positive yeast on 2 different cultures from 2 different days, I highly doubt is a contaminant. Started caspofungin, consult ID, await further culture growth, repeat blood cultures in a.m. Leukocytosisprobably relates to all of above Acute pulmonary edema/acute diastolic CHFdiuresed. I doubt this will be a chronic issue. She is doing much better today Mild pulmonary hypertension noted on echolikely will need sleep study to screen for sleep apnea as an outpatient Otherwise as above. Subjective Patient spiked a fever to 38.6C at 5:40AM. She states she is doing well. Her breathing feels back to baseline. She has some groin heaviness sensation, but states that the discomfort is improving from beginning of admission. Denies abdominal pain. Review of Systems Review of Systems: Constitutional: Denies current fever/chills Cardiovascular: Denies chest pain, palpitations Respiratory: Denies shortness of breath Gastrointestinal: Denies abdominal pain, nausea, vomiting, constipation, nano rrhea Genitourinary: Denies urinary symptoms including dysuria. See HPI Musculoskeletal: Denies weakness, muscle aches/pain, joint aches/pain Neurological: Denies headache, numbness, tingling, focal weakness Physical Exam Physical Exam: General: Grossly A&O. NAD. Cooperative. HEENT: Atraumatic, normocephalic. EOMI. NO obvious jvd noted. Pulm: CTAB. No respiratory distress. No crackles. L lower lung base slightly quieter. Per attending exam, faint bibasilar rales. Cardiac: RRR, -mrg. Radial pulses intact and symmetrical. Abdominal: Nontender, nondistended, soft. : deferred Results & Data Results & Data ([facility]) Vital Signs (Past 12 Hours) Vital Signs Temp Pulse Resp BP Pulse Ox 02/24/21 05:40 38.6 C H 02/24/21 04:10 37.8 C H 77 18 126/76 93 02/23/21 23:20 37.4 C 76 18 139/83 93 02/23/21 19:09 37.0 C 77 18 120/71 90 Resident Activity Tracking Resident Involvement: Resident Care Provided Care Provided: Adult Hospital Medicine
[2021-02-24] MEDS: INSULIN ASPART 100 UNITS/ML 3 ML PEN SC SCH ×4 (08:34→21:28)
[2021-02-24] MEDS: amLODIPine BESYLATE 5 MG TAB PO SCH (08:57)
[2021-02-24] MEDS: buPROPion XL 150 MG TABCR PO SCH (08:57)
[2021-02-24] MEDS: allopurinoL 100 MG TAB PO SCH (08:57)
[2021-02-24] MEDS ORDERED: POTASSIUM CHLORIDE CRTAB 20 MEQ TABCR PO STA (09:21)
--- NOTE | 2021-02-24 09:23 | Gynecologic Progress Note ---
Date of Service February 24, 2021 Assessment & Plan (1) Postoperative thrombophlebitis: (2) Postoperative fever: pt clinically doing better and her wbc is stable. heparin gtt, not therapeutic and if not trt spt dx well, ? if temp increase this am related. she feels better, not clinically decompensating and overall seems to be improving but slow progress. spoke to pharmacy about her ptt yesterday, boluses given and rate increased and ptt did not budge. she suggests that once in therapeutic ra nge, to check labs q6hr so we don't loose ground in case it drops again. seems that wt is correct and its wt based dosing she explains to me and she has preliminarily looked and all boluses and rate changes were made. pt spirits are good but frustrated by her fever. wants to stay here and not be transferred and i think reasonable to cont to watch and follow. if fevers recur, loretta in face of therapeutic heparin, would need to consider repeat CT and pt made aware of that. left message for spouse re: update. pt told me he may not be available on cell as he is at camp. Addendum: just informed of positive blood cx and relayed that to hospitalist. one bottle on 2 separate dates with +yeast, ? contam, Dr. Francisco aware and addressing. pt made aware of discussion with hospitalist and new findings thus far. Admission and Anticipated Discharge Date Admission Date: February 19, 2021 Subjective pt feels well this am. just finished her breakfast. she denies pain, no voiding issues. no bowel issues. mendez po well. frustrated she had fever early this am and did take meds but feels fine now. she denies cp or sob. sitting in chair. Review of Systems Constitutional: as per Subjective / HPI and + fever Physical Exam Constitutional: WD/WN, vitals as above Respiratory: normal respiratory effort, lungs clear to auscultation Cardiovascular: Rate/Rhythm: regular rate and regular rhythm Gastrointestinal (Abdomen): Percussion/Palpation: abdomen soft (obese); abdomen nontender and no guarding Neurologic: grossly normal Psychiatric: A+Ox3, euthymic affect Genitourinary: no CVA tenderness Results & Data ([facility]) Vital Signs (Past 12 Hours) Vital Signs Temp Pulse Resp BP Pulse Ox 02/24/21 06:45 99.3 F 02/24/21 05:40 101.5 F H 02/24/21 04:10 100.0 F H 77 18 126/76 93 02/23/21 23:20 99.3 F 76 18 139/83 93 PG Care Time/CCT Total # of Minutes Spent Total Time Spent with Patient: Total time spent is greater than 50% in coordination of care (as documented) at patient's floor/unit and/or counseling patient: Coding Level of Care Code None Diagnoses Postoperative thrombophlebitis T81.72XA Postoperative fever R50.82
[2021-02-24 10:55] LABS: Partial Thromboplastin Ratio 1.6; Partial Thromboplastin Time 41.9 Seconds (21.0-31.0)
[2021-02-24] MEDS: CASPOFUNGIN 50 MG in SODIUM CHLORIDE 0.9% 250 ML IV SCH (12:23)
[2021-02-24] MEDS ORDERED: POTASSIUM CHLORIDE CRTAB 20 MEQ TABCR PO ONE (14:00)
--- NOTE | 2021-02-24 17:36 | Billing Data ---
Date of Service February 24, 2021 Coding Level of Care Code 59919 Subseq Hosp Care Lvl 3
[2021-02-24 17:43] LABS: Partial Thromboplastin Ratio 2.7
[2021-02-24 18:03] LABS: Partial Thromboplastin Time 71.1 Seconds (21.0-31.0)
[2021-02-24] MEDS: METOPROLOL SUCC 25MG EXT REL TAB PO SCH (20:55)
[2021-02-25 01:20] LABS: Partial Thromboplastin Ratio 3.6
[2021-02-25 01:25] LABS: Partial Thromboplastin Time 94.5 Seconds (21.0-31.0)
[2021-02-25] MEDS: PIPERACILLIN/TAZOBACTAM 4.5 GM in DEXTROSE 5% 100 ML IV SCH ×3 (05:51→21:58)
--- NOTE | 2021-02-25 07:16 | Hospitalist Progress Note ---
Date of Service February 25, 2021 Assessment & Plan (1) Pelvic abscess in female: Alisson Perez is a 60 y/o F w/ DM2 and s/p TAHBO 3 wks prior to admission who presented w/ post-op fever and septic thrombophlebitis and is a consult from the EMERGENCY WORKER service. She likely has a superimposed candidemia as noted by blood cultures and IV capsofungin was added on 02/24/21. Stable, improving. Suspected Septic Pelvic Thrombophlebitis - In setting of recent abdominal surgery (TAHBO) - Continue Zosyn, heparin gtt, antipyretics (PRN) - CBC qAM Postoperative Fever, improving - In setting of recent pelvic surgery and I&D of cervical cuff fluid collection on 02/19 - 02/24: 02/19 and 02/21 prelim BC growing yosvany. Adding IV capsofungin. - Given clinical improvement and decreased frequency of fevers on IV Zosyn w/o antifungal coverage, patient may have superimposed candidemia, but not as the main cause of her postop fever. - Candidemia would be consistent w/ patient's added hx of mild yeast infection type symptoms prior to her surgery. - 02/25 afebrile overnight, which is an improvement Candidemia - as above - As of 02/24 afternoon, patient has been afebrile since starting IV capsofungin 5 AM. - consult ID regarding duration of treatment - 02/24/21 ordered another set of blood cultures Acute Hypoxic Respiratory Failure, nearly resolved - HART overnight 02/22- w/ 2-3L O2 requirement via NC. Crackles on exam. CXR c/w pulm edema. Net +6L. s/p Lasix 60mg IVx1 on 02/23 w/ significant improvement. - since 02/24: minimal crackles. back on room air. patient reports that her respiratory status is back to baseline. TTE: EF 60-65%. No RWMA. Mild pulm HTN. Leukocytosis - Leukocytosis to upper 16s noted 02/23 w/ prominent PMNs, monocytes w/ left shift in setting of ongoing SPT. Relatively unchanged on 02/24 - WBC ~16s, stable - CRP downtrending - Continue to trend Hypokalemia - 3.2, repleted w/ 40meq PO. f/u AM BMP. Normocytic Anemia, stable around ~9 - Baseline Hgb normal (02/08) = 13.8+ - Will monitor Transaminitis / Suspected DILI, nearly resolved - Noted to have transaminitis on admission (AST 345, ALT 191, ALP 545, TBili wnl) --> nearly resolved at this point with exception of ALP Acute Kidney Injury, resolved L Hydroureteronephrosis - With known history of L ureteral stricture requiring stenting in the past - CT-A/P here demonstrating "persistent mild left hydroureteronephrosis with mild wall thickening of the distal left ureter." - Urology already consulted, appreciate insight and recommendations with regards to any need for possible intervention - No indication planned at present. Type 2 Diabetes Mellitus - A1c on 02/20: 7.0, - While here: AC/HS BSGs with SSI, goal range 100-140 for now - Will require dietary counselling, outpatient management once stable for discharge Chronic Medical Problems - HTN: Continue metoprolol, amlodipine - Gout: Continue allopurinol - Hypothyroidism: Continue Synthroid - Mood: Continue Wellbutrin Code: FULL Diet: DM2 PPX: hep gtt Dispo: med/surg tele. dispo date depending on resolution of fevers (2) Postoperative fever: (3) Type 2 diabetes mellitus: (4) NAFLD (nonalcoholic fatty liver disease): (5) Postoperative thrombophlebitis: (6) Hydronephrosis, left: (7) Elevated liver enzymes: (8) HTN (hypertension): (9) Hypothyroidism: (10) Gout: (11) Leukocytosis: (12) Candidemia: Admission and Anticipated Discharge Date Admission Date: February 19, 2021 Supervising Physician Co-Signing Physician Notes I personally examined the patient and verified all worthy points of history and exam, discussed case, and agree with decision making with Dr Ramirez. feels good overall. no complaints. discussed current dxs and next steps in plan. Vitals noted, in general she is awake and alert pleasant no distress. HEENT normocephalic atraumatic mucous membranes moist. breathing unlabored no accessory muscles good effort. Extremities are without cyanosis. Skin shows no rashes no pallor or icterus no areas of erythema. No focal neuro deficits. Persistent feverher blood cultures showing yeast raised the possibility of a slow smoldering fungemia, but at the same time her fever curve earlier in the week seemed inconsistent with bacteremia/fungemia type presentations most of the timeespecially in somebody who is immunocompetentso I really wonder if septic pelvic thrombophlebitis and fungemia are at play. Given that she has positive yeast on 2 different cultures from 2 different days, I highly doubt is a contaminant. Started caspofungin, consulted ID, await further culture growth on cultures from 02/19 and 02/21, repeat blood sent today after 2nd dose of caspofungin Leukocytosisprobably relates to all of above Acute pulmonary edema/acute diastolic CHFdiuresed. I doubt this will be a chronic issue. no need for further treatment at this point. Mild pulmonary hypertension noted on echolikely will need sleep study to screen for sleep apnea as an outpatient Otherwise as above. dispo - likely home once >24hrs fever free and plan delineated for fungemia Subjective Patient feels well. Pelvic heaviness/discomfort sensation is improving from prior days. 03/22 intensity. No fever/chills or other symptoms. Patient denies respiratory complaints and has not had issues w/ ambulating to restroom. Review of Systems Review of Systems: Constitutional: Denies fever, chills Cardiovascular: Denies chest pain, palpitations Respiratory: Denies shortness of breath Gastrointestinal: Denies abdominal pain, nausea, vomiting, constipation, diarrhea Genitourinary: Denies dysuria Musculoskeletal: Denies weakness Neurological: Denies headache, numbness, tingling, focal weakness Physical Exam Physical Exam: General: Grossly A&O. NAD. Cooperative. HEENT: Atraumatic, normocephalic. EOMI. Pulm: -wheezes. No respiratory distress. Faint bibasilar rales. Cardiac: RRR, -mrg. Trace LE edema shins, no extension past knees. L foot is slightly puffy in appearance which per patient is not new. Abdominal: Nontender, nondistended, soft. Results & Data Results & Data ([facility]) Vital Signs (Past 12 Hours) Vital Signs Temp Pulse Resp BP Pulse Ox 02/25/21 03:05 37.4 C 71 18 134/80 94 02/25/21 00:30 37.4 C 72 18 138/86 95 02/24/21 20:45 37.7 C H 74 20 147/88 H 95 Resident Activity Tracking Resident Involvement: Resident Care Provided Care Provided: Adult [facility] Medicine
[2021-02-25 07:40] LABS: Hematocrit (blood only) 26.8 % (37-47); Hemoglobin 8.9 g/dL (12.0-16.0); Mean Corpuscular Hemoglobin 28.3 pg (25-34); Mean Corpuscular Hgb Conc 33.2 g/dL (32-36); Mean Corpuscular Volume 85.1 fL (80-100); Mean Platelet Volume 9.5 fL (7.4-10.4); Nucleated RBC % (auto) 0.6 %; Platelet Count 414 K/uL (130-400); RDW Coefficient of Variation 14.3 % (11.5-14.5); RDW Standard Deviation 44.3 fL (36.4-46.3); Red Blood Count 3.15 M/uL (4.2-5.4); White Blood Count 16.36 K/uL (4.8-10.8)
[2021-02-25 07:49] LABS: Partial Thromboplastin Ratio 1.4; Partial Thromboplastin Time 36.5 Seconds (21.0-31.0)
[2021-02-25 07:55] LABS: Basophils # (auto) 0.07 K/uL (0-0.2); Basophils % (auto) 0.4 %; Eosinophils # (auto) 0.21 K/uL (0-0.5); Eosinophils % (auto) 1.3 %; Immature Granulocytes # (auto) 1.58 K/uL (0.00-0.02); Immature Granulocytes % (auto) 9.7 %; Lymphocytes # (auto) 3.51 K/uL (1.2-3.4); Lymphocytes % (auto) 21.5 %; Monocytes # (auto) 1.45 K/uL (0.11-0.59); Monocytes % (auto) 8.9 %; Neutrophils # (auto) 9.54 K/uL (1.4-6.5); Neutrophils % (auto) 58.2 %; Polychromasia 1+
[2021-02-25 07:58] LABS: Albumin Level 1.8 gm/dl (3.4-5.0); BUN Creatinine Ratio 15.9 (10-20); Calcium 8.7 mg/dl (8.5-10.1); Creatinine Clr Calc Pharmacy 102.4 ml/min; Est GFR (African American) 112.1 ml/min; Est GFR (Non-African American) 96.7 ml/min; Potassium 3.2 mmol/L (3.5-5.1)
[2021-02-25 08:01] LABS: Albumin Globulin Ratio 0.3 (0.9-2); Bilirubin,Total 0.5 mg/dl (0.2-1); Globulin 5.8 gm/dl (2.5-4.0); Total Protein 7.6 gm/dl (6.4-8.2)
[2021-02-25] MEDS ORDERED: HEPARIN SOD (PORCINE) 1000 UNIT/ML IV ONE (08:30)
[2021-02-25] MEDS: HEPARIN SODIUM/DEXTROSE 25,000 UNITS/500 ML BAG IV SCH ×2 (08:43→22:06)
[2021-02-25] MEDS: INSULIN ASPART 100 UNITS/ML 3 ML PEN SC SCH ×4 (08:47→21:13)
[2021-02-25] MEDS: buPROPion XL 150 MG TABCR PO SCH (08:54)
[2021-02-25] MEDS: amLODIPine BESYLATE 5 MG TAB PO SCH (08:55)
[2021-02-25] MEDS: allopurinoL 100 MG TAB PO SCH (08:55)
--- NOTE | 2021-02-25 09:26 | Gynecologic Progress Note ---
Date of Service February 25, 2021 Assessment & Plan (1) Postoperative thrombophlebitis: (2) Postoperative fever: (3) Candidemia: cont current care. heparin gtt and iv abx. appreciate help of hospitalists. labs stable. af x 26hrs. if temp spike will likely plan ct. pt aware. rec she d/w hospitalist and then with ID re: course of trt for yosvany infection. Admission and Anticipated Discharge Date Admission Date: February 19, 2021 Subjective pt doing well this am. feels well. eating, voiding, ambulating. no pain. no pressure. pink vag d/c very minimal. no drainage. asking about her yosvany infection, course of trt, duration etc, goals. i am not familiar with trt plan and she is aware that there is a plan for ID consult. labs reviewed. 2nd bottle on 02/21 is +yeast. Review of Systems Constitutional: as per Subjective / HPI; no fever Physical Exam Constitutional: WD/WN, vitals as above Respiratory: normal respiratory effort, lungs clear to auscultation (basilar crackles) Cardiovascular: Rate/Rhythm: regular rate and regular rhythm Gastrointestinal (Abdomen): Percussion/Palpation: abdomen soft; abdomen nontender and no guarding Musculoskeletal: nontender calves Neurologic: grossly normal Psychiatric: A+Ox3, euthymic affect Results & Data ([facility]) Vital Signs (Past 12 Hours) Vital Signs Temp Pulse Resp BP Pulse Ox 02/25/21 07:50 99.5 F 69 20 148/84 H 95 02/25/21 03:05 99.3 F 71 18 134/80 94 02/25/21 00:30 99.3 F 72 18 138/86 95 PG Care Time/CCT Total # of Minutes Spent Total Time Spent with Patient: Total time spent is greater than 50% in coordination of care (as documented) at patient's floor/unit and/or counseling patient: Coding Level of Care Code None Diagnoses Postoperative thrombophlebitis T81.72XA Postoperative fever R50.82 Candidemia B37.7
[2021-02-25] MEDS ORDERED: POTASSIUM CHLORIDE CRTAB 20 MEQ TABCR PO STA (09:27)
[2021-02-25] MEDS ORDERED: FLUTICASONE PROPIONATE NA SPR 16 GM BTL PRN (09:30)
[2021-02-25] MEDS: CASPOFUNGIN 50 MG in SODIUM CHLORIDE 0.9% 250 ML IV SCH (11:05)
[2021-02-25 15:25] LABS: Partial Thromboplastin Ratio 1.5; Partial Thromboplastin Time 39.6 Seconds (21.0-31.0)
[2021-02-25] MEDS: ONDANSETRON INJ 2 MG/ML 2 ML VIAL IV PRN (15:56)
--- NOTE | 2021-02-25 18:01 | Billing Data ---
Date of Service February 25, 2021 Coding Level of Care Code 59956 Subseq Hosp Care Lvl 3
[2021-02-25] MEDS: IBUPROFEN 600 MG TAB PO PRN (20:00)
[2021-02-25] MEDS: METOPROLOL SUCC 25MG EXT REL TAB PO SCH (21:25)
[2021-02-25 22:11] LABS: Partial Thromboplastin Ratio 1.6; Partial Thromboplastin Time 42.9 Seconds (21.0-31.0)
[2021-02-26 04:37] LABS: Hematocrit (blood only) 25.1 % (37-47); Hemoglobin 8.3 g/dL (12.0-16.0); Mean Corpuscular Hgb Conc 33.1 g/dL (32-36); Mean Corpuscular Volume 84.8 fL (80-100); Mean Platelet Volume 9.4 fL (7.4-10.4); Nucleated RBC # (auto) 0.05 K/uL (0-0); Nucleated RBC % (auto) 0.3 %; Platelet Count 336 K/uL (130-400); RDW Coefficient of Variation 14.4 % (11.5-14.5); RDW Standard Deviation 43.8 fL (36.4-46.3); Red Blood Count 2.96 M/uL (4.2-5.4); White Blood Count 14.42 K/uL (4.8-10.8)
[2021-02-26 04:56] LABS: BUN Creatinine Ratio 12.2 (10-20); Est GFR (African American) 112.6 ml/min; Est GFR (Non-African American) 97.2 ml/min; Potassium 3.1 mmol/L (3.5-5.1)
[2021-02-26 05:01] LABS: Partial Thromboplastin Ratio 2.1
[2021-02-26 05:15] LABS: ALC (manual) 2.75 K/uL (1.2-3.4); ANC (manual) 9.78 K/uL (1.4-6.5); Basophils # (manual) 0.13 K/uL (0-0.2); Basophils % (manual) 0.9 %; Eosinophils # (manual) 0.13 K/uL (0-0.5); Eosinophils % (manual) 0.9 %; Lymphocytes # (manual) 2.75 K/uL (1.2-3.4); Lymphocytes % (manual) 19.1 %; Metamyelocytes % (manual) 3.5 %; Monocytes % (manual) 3.5 %; Myelocytes # (manual) 0.62 K/uL (0-0); Myelocytes % (manual) 4.3 %; Neutrophils # (manual) 9.78 K/uL (1.4-6.5); Neutrophils % (manual) 67.8 %
[2021-02-26] MEDS: LEVOTHYROXINE SODIUM 150 MCG TABLET PO SCH (05:49)
[2021-02-26] MEDS: PIPERACILLIN/TAZOBACTAM 4.5 GM in DEXTROSE 5% 100 ML IV SCH ×3 (05:53→21:31)
--- NOTE | 2021-02-26 06:49 | Gynecologic Progress Note ---
Date of Service February 26, 2021 Assessment & Plan (1) Candidemia: (2) Postoperative thrombophlebitis: (3) Postoperative fever: stable, wbc is improved. cont iv abx--unasyn and antifungal and heparin gtt. ID consult today, will learn more about course of treatment for fungal infection. pt temps overall improved. do not see reason clinically to reimage her as of now. spoke to her about this at length and she wants to avoid. i have not had a true temp spike and we will monitor for such. PTT already being checked at 6hr navya even though in therapeutic range due to issues with keeping her there on heparin gtt. appreciate hospitalist help and pending ID consult. Admission and Anticipated Discharge Date Admission Date: February 19, 2021 Subjective pt doing well this am. feels well. eating, voiding, ambulating without problem. no pain. no pressure. she is hoping to go home soon. did not feel febrile last evening, but after motrin felt sweaty. again she feels well. Review of Systems Constitutional: as per Subjective / HPI; no fever Physical Exam Constitutional: WD/WN, vitals as above Respiratory: normal respiratory effort, lungs clear to auscultation (right basilar crackles) Cardiovascular: RRR, no murmur, no edema Gastrointestinal (Abdomen): Inspection/Auscultation: abdomen normal to inspection Percussion/Palpation: abdomen soft (obese); abdomen nontender and no guarding Musculoskeletal: nt calves Neurologic: grossly normal Psychiatric: A+Ox3, euthymic affect Results & Data ([facility]) Vital Signs (Past 12 Hours) Vital Signs Temp Pulse Resp BP Pulse Ox 02/26/21 03:05 98.4 F 57 L 18 129/76 95 02/25/21 23:05 98.8 F 69 18 135/85 94 02/25/21 21:25 67 138/62 02/25/21 21:00 99.9 F H 02/25/21 19:30 100.2 F H 69 18 143/87 H 95 PG Care Time/CCT Total # of Minutes Spent Total Time Spent with Patient: Total time spent is greater than 50% in coordination of care (as documented) at patient's floor/unit and/or counseling patient: Coding Level of Care Code None Diagnoses Candidemia B37.7 Postoperative thrombophlebitis T81.72XA Postoperative fever R50.82
[2021-02-26] MEDS: INSULIN ASPART 100 UNITS/ML 3 ML PEN SC SCH ×4 (08:47→20:49)
[2021-02-26] MEDS: allopurinoL 100 MG TAB PO SCH (08:51)
[2021-02-26] MEDS: buPROPion XL 150 MG TABCR PO SCH (08:52)
[2021-02-26] MEDS: amLODIPine BESYLATE 5 MG TAB PO SCH (08:52)
--- NOTE | 2021-02-26 09:57 | Hospitalist Progress Note ---
Date of Service February 26, 2021 Assessment & Plan (1) Pelvic abscess in female: Alisson Perez is a 60 y/o F w/ DM2 and s/p hysterectomy w/ BLO 3 wks prior to admission who presented w/ post-op fever and septic thrombophlebitis and is a consult from the [employer] service. She likely has a superimposed candidemia as noted by blood cultures and IV capsofungin was added on 02/24/21. Stable, improving. Suspected Septic Pelvic Thrombophlebitis -- see previous notes for further details regarding w/u - In setting of recent abdominal surgery (hysterectomy w/ BLO) - Continue Zosyn, heparin gtt, antipyretics (PRN) - CBC qAM Postoperative Fever -- improving, less frequent and really not much of a fever now, average "fever" temp < 100.2F - In setting of recent pelvic surgery and I&D of cervical cuff fluid collection on 02/19 - Work-up as follows: - Cervical cuff abscess was not purulent, low c/f this being abscess (especially since negative WCX) - Mild fever appreciated before procedure, however was quite consistent and ongoing to ~37-39+C range in following 3 days despite antipyretics - Clinically, no significant focalized pain/discomfort: no unilateral leg swelling, no chest discomfort/SOB, no abdominal pain, no urinary symptoms - Given clinical findings AND negative LE Doppler + CTA-Chest, low suspicion this represents DVT or PE - In absence of urinary symptoms low suspicion for UTI - No persistent sxs of C. diff (gene+, toxin-) - BCX from 02/19, 02/21 demonstrating yeast (as below) - Given clinical improvement and decreased frequency of fevers on IV Zosyn w/o antifungal coverage, patient may have superimposed candidemia but do not suspect main cause of her postop fever Candidemia - Candidemia would be consistent w/ patient's added history of mild yeast infection type symptoms prior to her surgery. - Continue IV Capsofungin - ID Consuted, appreciate insight and recommendations - Await repeat BCX Acute Hypoxic Respiratory Failure -- resolved; secondary to volume overload - HART overnight 02/22- w/ 2-3L O2 requirement via NC. Crackles on exam. CXR c/w pulm edema. Net +6L. s/p Lasix 60mg IVx1 on 02/23 w/ significant improvement. - TTE: EF 60-65%. No RWMA. Mild pulm HTN. - Resolved: no signs of volume overload on exam, patient not reporting symptoms - Careful use of IVF if needed - Strict I+Os Leukocytosis - Leukocytosis slowly downtrendin --> 14 (in setting of ongoing SPT, candidemia) - Continue to trend Hypokalemia - 3.2, repleted w/ 40meq PO. f/u AM BMP. Normocytic Anemia -- stable around 8-9 - Baseline Hgb normal (02/08) = 13.8+ - Work-up as follows: - On arrival Hgb 11.8 (02/19) --> slowly downtrending to 8.8 (02/22) [present before hep] - No obvious source of bleeding -- add heme-occult - Normal LDH, relatively low and now nml bili -- low suspicion for hemolysis in setting of ongoing fevers - Low iron, transferrin, and saturation on labs 02/22 - Suspect dilutional, phlebotomy + iron deficiency as likely etiologies given ~3 point drop since arrival - s/p Iron sucrose 200mg IV x 1 - Will monitor Transaminitis / Suspected DILI, nearly resolved - Noted to have transaminitis on admission (AST 345, ALT 191, ALP 545, TBili wnl) --> nearly resolved at this point with exception of ALP Acute Kidney Injury, resolved L Hydroureteronephrosis - With known history of L ureteral stricture requiring stenting in the past - CT-A/P here demonstrating "persistent mild left hydroureteronephrosis with mild wall thickening of the distal left ureter." - Urology already consulted, appreciate insight and recommendations with regards to any need for possible intervention - No indication planned at present. Type 2 Diabetes Mellitus - A1c on 02/20: 7.0, - While here: AC/HS BSGs with SSI, goal range 100-140 for now - Will require dietary counselling, outpatient management once stable for discharge Chronic Medical Problems - HTN: Continue metoprolol, amlodipine - Gout: Continue allopurinol - Hypothyroidism: Continue Synthroid - Mood: Continue Wellbutrin Code: FULL Diet: DM2 PPX: hep gtt Dispo: med/surg tele. dispo date depending on resolution of fevers. await recs from ID (2) Postoperative fever: (3) Type 2 diabetes mellitus: (4) NAFLD (nonalcoholic fatty liver disease): (5) Postoperative thrombophlebitis: (6) Hydronephrosis, left: (7) Elevated liver enzymes: (8) HTN (hypertension): (9) Hypothyroidism: (10) Gout: (11) Leukocytosis: (12) Candidemia: Admission and Anticipated Discharge Date Admission Date: February 19, 2021 Supervising Physician Co-Signing Physician Notes Patient seen and examined with PGY-1 Dr. Greer. Agree with history, exam findings, assessment and plan of care as outlined. 60 year old female with hx of DM2 s/p robotic TLH-BSO 3 weeks prior admitted with post-op fever found to have septic thrombophlebitis. Feels well. No fevers. Nontoxic appearing. Abdomen is soft, nontender. Surgical incision sites are healing. No erythema or discharge. 1. Septic pelvic thrombophlebitis. Continue zosyn. Heparin gtt. Can consider switching anticoagulation to reduce the fluid volume via IV. 2. Cervical cuff fluid collection s/p I&Dnot infected appearing fluid. Blood cultures with yosvany. Continue with zosyn and caspofungin. 3. Candidemia. Caspofungin. ID consult pending, re: length of antibiotic course. 4. Acute hypoxic respiratory failure. Due to pulmonary edema. s/p IV Lasix. Weaning O2 as able. 5. Normocytic anemia. Baseline hgb 9. 6. Transaminitis. Resolving. Likely secondary to sepsis. 7. DM2. A1C 7.0. continue ssi. 8. HTN. Continue home metoprolol and amlodipine. Dispo: pending ID consult. May need ultrasound guided IV vs mid-line/PICC depending on antibiotic course length. Subjective NAEO. Tm 37.9 (100.2) early last evening. Feeling well. No abdominopelvic pain. OK appetite. No chills or night sweats. Eager to talk with ID today Review of Systems Review of Systems: as per HPI Physical Exam Physical Exam: General: Overall, well-appearing 60 year old female who is sitting back in her hospital chair, relaxed with her feet up, upon my arrival. Converses freely. NAD. HEENT: NCAT. Eyes - Sclera are white, anicteric, and without injection. No appreciable JVD. Cardiac: Normal rate and regular rhythm; S1 and S2 present with no murmurs, rubs, or gallops. Pulmonary: Good respiratory effort with symmetric expansion of the chest. No use of accessory muscles. Very soft crackles in the left base, otherwise CTAB. Abdominal: Abdomen was soft, nondistended, and non-tender to palpation. Extremities: Upper and lower extremities are warm and well perfused. No peripheral edema. Results & Data Results & Data ([facility]) Vital Signs (Past 12 Hours) Vital Signs Temp Pulse Resp BP Pulse Ox 02/26/21 03:05 36.9 C 57 L 18 129/76 95 02/25/21 23:05 37.1 C 69 18 135/85 94
[2021-02-26] MEDS: HEPARIN SODIUM/DEXTROSE 25,000 UNITS/500 ML BAG IV SCH ×2 (11:22→12:02)
[2021-02-26 11:44] LABS: Partial Thromboplastin Ratio 1.6
[2021-02-26] MEDS: CASPOFUNGIN 50 MG in SODIUM CHLORIDE 0.9% 250 ML IV SCH (11:49)
[2021-02-26] MEDS: ONDANSETRON INJ 2 MG/ML 2 ML VIAL IV PRN (19:30)
[2021-02-26 19:31] LABS: Partial Thromboplastin Ratio 4.3
--- NOTE | 2021-02-26 19:41 | Communication Note ---
Date of Service: February 26, 2021 Visited pt in her room around 4pm. She was well. Her spouse was visiting. Afebrile for >48h by that point. Was still awaiting ID consult and later informed by nursing was not going to be done today. At time of my visit began discussion with patient of possible d/c and po abx course and cessation of heparin. She is hopeful to have ID consult soon to learn of course of trt for her fungemia. Will see her in am. Denies questions at this time.
[2021-02-26] MEDS: METOPROLOL SUCC 25MG EXT REL TAB PO SCH (20:50)
[2021-02-27 02:19] LABS: Hematocrit (blood only) 26.1 % (37-47); Hemoglobin 8.5 g/dL (12.0-16.0); Mean Corpuscular Hemoglobin 28.4 pg (25-34); Mean Corpuscular Hgb Conc 32.6 g/dL (32-36); Mean Corpuscular Volume 87.3 fL (80-100); Mean Platelet Volume 9.5 fL (7.4-10.4); Nucleated RBC # (auto) 0.05 K/uL (0-0); Nucleated RBC % (auto) 0.4 %; Platelet Count 387 K/uL (130-400); RDW Coefficient of Variation 14.7 % (11.5-14.5); RDW Standard Deviation 45.4 fL (36.4-46.3); Red Blood Count 2.99 M/uL (4.2-5.4); White Blood Count 12.22 K/uL (4.8-10.8)
[2021-02-27] MEDS: HEPARIN SODIUM/DEXTROSE 25,000 UNITS/500 ML BAG IV SCH (02:31)
[2021-02-27 02:34] LABS: Partial Thromboplastin Ratio 1.5; Partial Thromboplastin Time 38.6 Seconds (21.0-31.0)
[2021-02-27 02:38] LABS: BUN Creatinine Ratio 8.9 (10-20); Calcium 8.1 mg/dl (8.5-10.1); Creatinine Clr Calc Pharmacy 87.8 ml/min; Est GFR (Non-African American) 84.5 ml/min; Potassium 2.9 mmol/L (3.5-5.1)
[2021-02-27 02:46] LABS: Basophils # (auto) 0.03 K/uL (0-0.2); Basophils % (auto) 0.2 %; Eosinophils # (auto) 0.16 K/uL (0-0.5); Eosinophils % (auto) 1.3 %; Immature Granulocytes # (auto) 1.17 K/uL (0.00-0.02); Immature Granulocytes % (auto) 9.6 %; Lymphocytes # (auto) 2.53 K/uL (1.2-3.4); Lymphocytes % (auto) 20.7 %; Monocytes # (auto) 1.14 K/uL (0.11-0.59); Monocytes % (auto) 9.3 %; Neutrophils # (auto) 7.19 K/uL (1.4-6.5); Neutrophils % (auto) 58.9 %; Polychromasia 1+
[2021-02-27] MEDS ORDERED: POTASSIUM CHLORIDE CRTAB 20 MEQ TABCR PO STA ×2 (04:49→07:24)
[2021-02-27] MEDS: POTASSIUM CHLORIDE / WTR 10 MEQ/100 ML PLCT IV SCH ×3 (05:43→07:56)
[2021-02-27] MEDS: PIPERACILLIN/TAZOBACTAM 4.5 GM in DEXTROSE 5% 100 ML IV SCH ×2 (06:18→14:37)
[2021-02-27] MEDS: LEVOTHYROXINE SODIUM 150 MCG TABLET PO SCH (06:33)
[2021-02-27] MEDS: INSULIN ASPART 100 UNITS/ML 3 ML PEN SC SCH ×3 (08:24→17:30)
[2021-02-27] MEDS: amLODIPine BESYLATE 5 MG TAB PO SCH (09:01)
[2021-02-27] MEDS: buPROPion XL 150 MG TABCR PO SCH (09:02)
[2021-02-27] MEDS: allopurinoL 100 MG TAB PO SCH (09:02)
--- NOTE | 2021-02-27 09:11 | Gynecologic Progress Note ---
Date of Service February 27, 2021 Assessment & Plan (1) Postoperative thrombophlebitis: (2) Pelvic abscess in female: (3) Candidemia: af for >48hrs. doing well. ready from my standpoint to dc home. will plan 7d outpt course of bactrim and flagyl, to complete 14d course of abx since cuff opened. Culture never showed organism but would finish this course. She does not need heparin or anticoag any longer given AF >48h and no imaging every showing thrombus. have reviewed with hospitalist service and appreciate their input, will plan to d/c heparin soon. pt aware of this as outpt plan. we are awaiting the ID consult to determine plan for antifungals, it would seem that since adding the anti fungal pt temp curve and wbc has improved and will await their recommendations. discussed with pt limitations for lifting at home. and plan for outpt f/u next wk with me. Admission and Anticipated Discharge Date Admission Date: February 19, 2021 Subjective Pt feels well this am. Tired due to not getting good rest in hospital setting. No fevers. No cp or sob. No issues eating, voiding, ambulating. No pain. Review of Systems Constitutional: as per Subjective / HPI; no fever Physical Exam Constitutional: WD/WN, vitals as above Respiratory: normal respiratory effort, lungs clear to auscultation Cardiovascular: Rate/Rhythm: regular rate and regular rhythm Gastrointestinal (Abdomen): Percussion/Palpation: abdomen soft; abdomen nontender and no guarding Neurologic: grossly normal Psychiatric: A+Ox3, euthymic affect Results & Data ([facility]) Vital Signs (Past 12 Hours) Vital Signs Temp Pulse Resp BP 02/27/21 03:30 99.3 F 63 18 132/80 02/26/21 23:35 99.5 F 71 18 125/72 PG Care Time/CCT Total # of Minutes Spent Total Time Spent with Patient: Total time spent is greater than 50% in coordination of care (as documented) at patient's floor/unit and/or counseling patient: Coding Level of Care Code None Diagnoses Postoperative thrombophlebitis T81.72XA Pelvic abscess in female N73.9 Candidemia B37.7
[2021-02-27 09:39] LABS: Partial Thromboplastin Ratio 1.6; Partial Thromboplastin Time 42.2 Seconds (21.0-31.0)
[2021-02-27] MEDS: CASPOFUNGIN 50 MG in SODIUM CHLORIDE 0.9% 250 ML IV SCH (11:46)
--- NOTE | 2021-02-27 13:23 | Hospitalist Progress Note ---
Date of Service February 27, 2021 Assessment & Plan (1) Pelvic abscess in female: Alisson Perez is a 60 y/o F w/ DM2 and s/p hysterectomy w/ BLO 3 wks prior to admission who presented w/ post-op fever and septic thrombophlebitis and is a consult from the [employer] service. She likely has a superimposed candidemia as noted by blood cultures and IV capsofungin was added on 02/24/21. Stable, improving. Suspected Septic Pelvic Thrombophlebitis -- see previous notes for further details regarding w/u - In setting of recent abdominal surgery (hysterectomy w/ BLO) - At this point, agree on discontinuing heparin gtt without further anticoagulation - TMP-SMX + Flagyl x 7 days upon discharge - CBC qAM Postoperative Fever -- improving, less frequent and really not much of a fever now, average "fever" temp < 100.2F - In setting of recent pelvic surgery and I&D of cervical cuff fluid collection on 02/19 - Work-up as follows: - Cervical cuff abscess was not purulent, low c/f this being abscess (e specially since negative WCX) - Mild fever appreciated before procedure, however was quite consistent and ongoing to ~37-39+C range in following 3 days despite antipyretics - Clinically, no significant focalized pain/discomfort: no unilateral leg swelling, no chest discomfort/SOB, no abdominal pain, no urinary symptoms - Given clinical findings AND negative LE Doppler + CTA-Chest, low suspicion this represents DVT or PE - In absence of urinary symptoms low suspicion for UTI - No persistent sxs of C. diff (gene+, toxin-) - BCX from 02/19, 02/21 demonstrating yeast (as below) - Given clinical improvement and decreased frequency of fevers on IV Zosyn w/o antifungal coverage, patient may have superimposed candidemia but do not suspect main cause of her postop fever Candidemia - Candidemia would be consistent w/ patient's added history of mild yeast infection type symptoms prior to her surgery. - IV Capsofungin initiated 02/24, 4 total doses given while here as initial therapy - Transition to oral fluconazole 800mg total (200x4) PO daily at discharge given continued clinical improvement, stability - Repeat BCX demonstrating NGTD x 48 hr - certainly if this does come back showing growth, parental antifungals may be required with further search for source - Consider ID consult if reappearance of candidemia despite therapy Acute Hypoxic Respiratory Failure -- resolved; secondary to volume overload - HART overnight 02/22- w/ 2-3L O2 requirement via NC. Crackles on exam. CXR c/w pulm edema. Net +6L. s/p Lasix 60mg IVx1 on 02/23 w/ significant improvement. - TTE: EF 60-65%. No RWMA. Mild pulm HTN. - Resolved: no signs of volume overload on exam, patient not reporting symptoms - Careful use of IVF if needed - Strict I+Os Leukocytosis - Leukocytosis slowly downtrendin --> 14 (in setting of ongoing SPT, candidemia) - Continue to trend Hypokalemia - 3.2, repleted w/ 40meq PO. f/u AM BMP. Normocytic Anemia -- stable around 8-9 - Baseline Hgb normal (02/08) = 13.8+ - Work-up as follows: - On arrival Hgb 11.8 (02/19) --> slowly downtrending to 8.8 (02/22) [present before hep] - No obvious source of bleeding -- add heme-occult - Normal LDH, relatively low and now nml bili -- low suspicion for hemolysis in setting of ongoing fevers - Low iron, transferrin, and saturation on labs 02/22 - Suspect dilutional, phlebotomy + iron deficiency as likely etiologies given ~3 point drop since arrival - s/p Iron sucrose 200mg IV x 1 - Will monitor Transaminitis / Suspected DILI, nearly resolved - Noted to have transaminitis on admission (AST 345, ALT 191, ALP 545, TBili wnl) --> nearly resolved at this point with exception of ALP Acute Kidney Injury, resolved L Hydroureteronephrosis - With known history of L ureteral stricture requiring stenting in the past - CT-A/P here demonstrating "persistent mild left hydroureteronephrosis with mild wall thickening of the distal left ureter." - Urology already consulted, appreciate insight and recommendations with regards to any need for possible intervention - No indication planned at present. Type 2 Diabetes Mellitus - A1c on 02/20: 7.0, - While here: AC/HS BSGs with SSI, goal range 100-140 for now - Will require dietary counselling, outpatient management once stable for discharge - DME sent as RX to patient's pharmacy Chronic Medical Problems - HTN: Continue metoprolol, amlodipine - Gout: Continue allopurinol - Hypothyroidism: Continue Synthroid - Mood: Continue Wellbutrin Code: FULL Diet: DM2 PPX: hep gtt Dispo: med/surg tele. dispo date depending on resolution of fevers. await recs from ID (2) Postoperative fever: (3) Type 2 diabetes mellitus: (4) NAFLD (nonalcoholic fatty liver disease): (5) Postoperative thrombophlebitis: (6) Hydronephrosis, left: (7) Elevated liver enzymes: (8) HTN (hypertension): (9) Hypothyroidism: (10) Gout: (11) Leukocytosis: (12) Candidemia: Admission and Anticipated Discharge Date Admission Date: February 19, 2021 Supervising Physician Co-Signing Physician Notes Patient seen and examined with PGY-1 Dr. Greer. Agree with history, exam findings, assessment and plan of care as outlined. 60 year old female with hx of DM2 s/p robotic TLH-BSO 3 weeks prior admitted with post-op fever found to have septic thrombophlebitis. Feels well. No fevers. Nontoxic appearing. 1. Septic pelvic thrombophlebitis. Stopped heparin gtt and zosyn. Transition to oral abx. 2. Cervical cuff fluid collection s/p I&Dnot infected appearing fluid. Blood cultures with yosvany. Continue with zosyn and caspofungin. 3. Candidemia. Caspofungin. transition to oral diflucan. Unable to get ID consult due to long wait. 4. Acute hypoxic respiratory failure. Resolved. Due to pulmonary edema. s/p IV Lasix. Off O2. 5. Normocytic anemia. Baseline hgb 9. 6. Transaminitis. Resolving. Likely secondary to sepsis. 7. DM2. A1C 7.0. continue ssi. 8. HTN. Continue home metoprolol and amlodipine. Dispo: discharge home today with oral antibiotics and antifungal. I personally spent 20 minutes discharge planning for this patient. Subjective Feeling well this morning. Eager to talk with infectious disease and potentially leave the hospital. She denies any abdominal pelvic pain. Says she was able to sleep well. No fevers, chills, night sweats. Denies any shortness of breath. Has been able to get up and ambulate without any difficulty. No other concerns this morning. She does note to me that her mood has been more depressed lately given everything that is been going on. She feels like she is coping well, but is very eager to be back home and in her own environment. Review of Systems Review of Systems: as per HPI Physical Exam Physical Exam: General: Overall, well-appearing 60 year old female who is sitting back in her hospital chair, relaxed with her feet up, upon my arrival. Converses freely. NAD. HEENT: NCAT. Eyes - Sclera are white, anicteric, and without injection. No appreciable JVD. Cardiac: Normal rate and regular rhythm; S1 and S2 present with no murmurs, rubs, or gallops. Pulmonary: Good respiratory effort with symmetric expansion of the chest. No use of accessory muscles. Very soft crackles in the left base, otherwise CTAB. Abdominal: Abdomen was soft, nondistended, and non-tender to palpation. Extremities: Upper and lower extremities are warm and well perfused. No peripheral edema. Results & Data Results & Data ([facility]) Vital Signs (Past 12 Hours) Vital Signs Temp Pulse Resp BP 02/27/21 03:30 37.4 C 63 18 132/80 Resident Activity Tracking Resident Involvement: Resident Care Provided Care Provided: Adult Hospital Medicine
--- NOTE | 2021-02-27 20:23 | Discharge Summary ---
Date of Service Date of admission: February 19, 2021 Date of discharge: February 27, 2021 Admission HPI Per Admitting Provider 60yo with cc of postoperative state from [facility] 3wks ago with fever and vaginal pain and nausea. Patient was seen in office this am. Her course includes TLH, requiring indwe lling left ureteral stent due to incidental ureteral stricture found at time of cystoscopy done for h/o TLH. The stent was irriating to patient such that she presented to ER about 10d postop. She had urine studies, labs with wbc 15, 000 and given antibiotics and sent home. I saw her at 2wks postop(3d after ER visit) still not feeling well. Low grade temps and had wbc 10, 000 and bothered by bladder pain and we planned CT scan. Was seeing urology for followup the next day with hopes to get stent removed to see if that improved her bladder pressure and flank pain. She did get stent removed and had cysto with Dr. Staton on 02/14/21 and by next day was feeling better. She still had some flank soreness but the bladder pressure was gone and did not feel ill. She had a CT that am, per the plan 2d prior which did show a cuff collection suspicious for abscess but she was clinically feeling better. No vaginal drainage. She was afebrile. She had been examined on 02/13 with no vaginal discharge or drainage and no significant cuff tenderness. After counseling about all, including collaborating with radiology and urology, options at that time were to drain ? collection vs. cont antibiotics and see how she did. She opted for latter and on02/16/21 she reported doing well, was taking her temp bid and no fever and no pain or pressure. Voiding, eating well, did not like nausea with dosing of her antib iotics but otherwise ok. Plan was for repeat labs this am and visit this pm in office. Unfortunately early this am, called office with above cc. She did not have labs. She was advised to come immediately to office for evaluation. She really wanted to avoid the ER if possible due to past experience not being good with evaluating doctor in ER. She notes began feeling unwell friday afternoon. She began with nausea and anorexia since then, last eating noon yesterday. No vomiting. +flatus. feels thirsty. denies vaginal drainage, some pink spotting. Has pressure or pain in pelvis and this am temp 102F. She is voiding well, no flank pain. Can ambulate normally, drove herself here and gets on and off table with no issue. Temp in office was 99F and no recent anti-pyretic meds. All Active Problems (Updated 02/19/21 @ 12:17 by Aure Rollins MD, FACOG) Abnormal finding on imaging Pelvic pain Sensation of pressure in bladder area Post-operative pain UTI (urinary tract infection) (Acute) Encounter for pre-operative examination Dysplasia of cervix, low grade (BOUCHRA 1) HTN (hypertension) (Chronic) Health care maintenance Vitamin D deficiency disease (Acute) Recurrent periodic urticaria (Acute) Premature ventricular contractions (Acute) Metabolic disorder (Acute) Impaired fasting glucose (Acute) Hypothyroidism (Acute) Kidney cysts Liver cyst Calcification of coronary artery (Acute) Gout Hyperglycemia Left foot pain Swelling of left foot Subchondral cyst Abnormal finding on imaging Gait disturbance Suspected 2019 novel coronavirus infection Encounter for annual routine gynecological examination Low back pain High grade squamous intraepithelial cervical dysplasia Family history of uterine fibroid Discharge Data Consultations 02/20/21 20:43 Consult Hospitalist Stat 02/21/21 08:48 Consult Urology Routine Procedures Performed Operation Date: 02/19/21 09:20 Actual Procedures p Evaluation Under Anesthesia, Evacuation of collection, reapproximation of vaginal cuff(Not Applicable) - Tanya Lancaster, Hospital Course (1) Postoperative fever: (2) Leukocytosis: (3) Candidemia: (4) Postoperative thrombophlebitis: On February 19, 2021, patient was admitted to the floor and labs were drawn. Her vitals signs showed she was febrile and therefore blood cultures were obtained. Given fever and suspected cuff abscess, Unasyn IV antibiotic therapy was begun. She did have surgery that late afteroon and the cuff was opened and fluid consistent with hematoma extruded and u/s was there to guide the evacua tion. The fluid that came out was cultured but did not look like pus/typical abscess contents. Patient did have relief of the pelvis pressure and plan was to continue antibiotics and watch temperature curve. Unfortunately despite 3-4 doses of antibiotics in this setting the patient's fever worsened. On her POD #1 despite IV unasyn, her temperature climbed as high at 103F and would not come down despite antipyretics. The vaginal fluid culture thus far did not show anything on gram stain of note and patient had signficant change in her LFTs that upon questioning patient was suspicious for excess tylenol use prior to admission. She also had a creeping creatinine with history of recent stent placement and removal. Hospitalist service was consulted due to the fever and additional blood cultures were obtained and patient was moved to PCU due to concern for sepsis. Imaging performed to include CT Abdomen and pelvis, CT chest, Duplex LE with significant findings of mild hydronephrosis left, de creased size of prior collection on imaging week prior. Given this additional antibiotics were initiated. The next morning due to persistent high fever, without significant findings on CT and less suspicious findings at time of EUA for abscess, youth accommodation support worker service felt diagnosis could be septic pelvic thrombophlebitis and with discussion with hospitalist service heparin drip was started. Patient ultimately was changed back to unasyn alone. Her blood counts and chemistry profile were followed. Urology service was consulted for their opinion about CT findings and creatinine. Transaminases were followed and slowly resolved to normal and were thought to be related to excess tyelnol use prehospital. Creatinine trended down and WBC was also trending towards normal. Overall patient felt well but fevers remained persistently elevated. Then on her POD # 3 her WBC began to increase again. She was clinically improving except for fevers (no pain, eating, voiding, +flatus) and some thought was given to the peristence of fever in relationship to her working diagnoses could be related to need to achieve therapeutic hepain. Unfortunately that evening she also developed respiratory distress and pulmonary edema thought to be related to fluid overload and responded to IV Lasix. On her POD #4 she had an echo as well and EF was normal. Some mention of pulmonary hypertension per hospitalist where outpatient evaluation of possible sleep apnea should be considered. She continued to have episodic fevers although the curve was flattening and her WBC was rising. We discussed at this stage possible transfer to tertiary care facility and discussed with [facility] her case and management thus far. Plan was to consider reimaging if temperature radha again and if collection still present consider IR management. She would require transfer if that were the case and given overall patient feeling better, she preferred to stay at [facility] and given her current treatment plan more time. On the morning of POD # 5, bottles of her blood cultures on 2 separate dates were reported positive her yeast and IV antifungal was started. This was in addition to ongoing heparin drip and unasyn. Patient was moved back to floor bed and continued to do well clinically and became afebrile. There was a plan to obtain ID consult regarding management of candidemia as outpatient but that was unable to be obtained in timely fas hion. She was doing well on her POD #8 and heparin was discontinued, IV antibiotics were converted to plan for outpt oral antibiotics and patient was sent home. She had remained afebrile for 72+hours and her WBC was decreasing. She had repeat blood cultures and thus far did not grow anything. She was to take 7d course of both high dose antifungal per hospitalist and bactrim ds bid x 7d and flagyl 500mg po bid. She was to followup as outpt with youth accommodation support worker and pcp in one week. During the course of her hospitalization the patient had her Type2 DM diagnosed and per hospitalist notes will need outpt nutrition therapy. The recommended consideration for sleep apnea study due to pulmonary hypertension on ECHO and per last CT scan, mild retroperitoneal lymphadenopathy was noted and they recommended a repeat CT scan be done in 6m to ensure resolution. She already had a plan to followup with urology about her history of left ureteral stricture. Coding Level of Care Code None Diagnoses Postoperative fever R50.82 Leukocytosis D72.829 Candidemia B37.7 Postoperative thrombophlebitis T81.72XA
[2021-02-27] MEDS ORDERED: SULFAMETHOXAZOLE/TRIMETHOPRIM DS 800/160MG TAB PO SCH (21:00)
[2021-02-27] MEDS ORDERED: metroNIDAZOLE 500 MG TAB PO SCH (21:00)
--- NOTE | 2021-03-06 12:25 | Coding Query ---
CODING QUERY To promote full compliance with coding requirements relating to patient care, provider participation is requested in all cases of applications specialist uncertainty. Please assist us with the question(s) below: Coding Question(s): 1. There is documentation of Septic Pelvic Thrombophlebitis and Postoperative Thrombophlebitis and suspected vaginal cuff abscess and there is documentation of possible Sepsis on the 02/20 Consultation and mention on Discharge Summary of, "Hospitalist service was consulted due to the fever and additional blood cultures were obtained and patient was moved to U due to concern for sepsis". Please specify below, in your clinical opinion regarding Sepsis. ( x ) Possible Sepsis - Present on Admission. Please Specify further below, the source of the Sepsis. ( ) likely due to Postoperative Infection ( x ) likely due to Other: Please Specify unclear, was yosvany infection ( ) likely due to Unknown possible source ( ) Possible Sepsis - Occurred after Admission. Please Specify further below, the source of the Sepsis. ( ) likely due to Postoperative Infection ( ) likely due to Other: Please Specify ( ) likely due to Unknown possible source ( ) No Sepsis - Sepsis is Ruled-Out (x ) Other. Please Specify candida sepsis on cultures 2. Please specify below, in your clinical opinion, regarding documentation of Postoperative Thrombophlebitis and Septic Thrombophlebitis and Postoperative Fever. ( x ) likely Postoperative Complications ( ) Not Postoperative Complications ( ) Other: Please Specify 3. Please specify below, in your clinical opinion regarding vaginal cuff abscess. (x ) likely Postoperative Complication ( ) Not Postoperative Complication ( ) Other: Please Specify ( x) Ruled-Out--due to nothing grew on culture, was most likely a non infected hematoma Physician's Response(s): Thank you Mary Ann Mcdaniel Principal Diagnosis: "that condition established after study, to be chiefly responsible for occasioning the admission of the patient to the hospital for care." Co-Existing Principal Diagnosis: "when two or more diagnoses equally meet the criteria for principal diagnosis as determined by the circumstances of admission, diagnostic work up, and/or therapy provided, and the Alphabetic Index, Tabular List, or another coding guideline does not provide sequencing direction, any one of the diagnoses may be sequenced first." "When the physician has documented what appears to be a current diagnosis in the body of the record, but has not included the diagnosis in the final diagnostic statement, the physician should be asked whether the diagnosis should be added." (Source Coding [facility] 2 QTR90. p3-4) DAMION
== END 2021-02-27 18:25 | disposition home or self-care (01) | DRG 907 ==
LOC: 4N 11:33 → 1E 02-21 06:16 → 2S 02-21 12:55 → 4S2 02-23 16:13 → 4N 02-24 09:50
DX: Z90.710 Acquired absence of both cervix and uterus; G89.18 Other acute postprocedural pain; E11.65 Type 2 diabetes mellitus with hyperglycemia; Z87.891 Personal history of nicotine dependence; F41.9 Anxiety disorder, unspecified; T39.1X5A Adverse effect of 4-Aminophenol derivatives, initial encounter; I49.3 Ventricular premature depolarization; B37.7 Candidal sepsis; R50.82 Postprocedural fever; Z68.41 Body mass index [BMI] 40.0-44.9, adult; I27.20 Pulmonary hypertension, unspecified; E87.6 Hypokalemia; R74.8 Abnormal levels of other serum enzymes; R19.7 Diarrhea, unspecified; N99.840 Postprocedural hematoma of a genitourinary system organ or structure following a genitourinary system procedure; N17.9 Acute kidney failure, unspecified; Z82.49 Family history of ischemic heart disease and other diseases of the circulatory system; I80.8 Phlebitis and thrombophlebitis of other sites; E66.01 Morbid (severe) obesity due to excess calories; Z83.3 Family history of diabetes mellitus; D50.9 Iron deficiency anemia, unspecified; I50.31 Acute diastolic (congestive) heart failure; E03.9 Hypothyroidism, unspecified; T81.72XA Complication of vein following a procedure, not elsewhere classified, initial encounter; Z86.16 Personal history of COVID-19; Z79.899 Other long term (current) drug therapy; I11.0 Hypertensive heart disease with heart failure; N13.30 Unspecified hydronephrosis; J96.01 Acute respiratory failure with hypoxia; D64.89 Other specified anemias; R59.0 Localized enlarged lymph nodes; M10.9 Gout, unspecified; F32.9 Major depressive disorder, single episode, unspecified

== ENCOUNTER 2021-11-15 23:45 | Inpatient (IN) ==
[2021-11-16] MEDS ORDERED: NITROGLYCERIN SL 0.4 MG/TAB TAB SL PRN ×2 (00:12→02:34)
--- NOTE | 2021-11-16 00:24 | Emergency Department Note ---
Impression & Plan Acute non-ST elevation myocardial infarction (NSTEMI), Diabetes mellitus with hyperglycemia Admit to the [facility] service ED Provider Note NAME: ELIGIO INFANTE AGE: 61 SEX: F ARRIVES VIA: Walk-In INFORMANT: Patient ED PROVIDER(S): Emmy Byrd DO CHIEF COMPLAINT: Burning sensation to left shoulder PLAN: Disposition: Admit to the [facility] service Condition: Guarded MEDICAL DECISION MAKING: This is a 61-year-old female patient who presents to the emergency department with hypertension and burning sensation in her left shoulder and arm. The p atient has a history of high blood pressure and takes multiple antihypertensives. She was recently diagnosed with a sinus infection and has been taking a Medrol Dosepak, Advil and [id number] cold and sinus medications. Over the past 2 days she developed a headache and intermittent discomfort in her left shoulder and left arm that she describes as a burning sensation. EKG showed no signs of ST segment elevation or ischemia but the patient had an elevated troponin consistent with an NSTEMI. Patient was also noted to have a blood sugar greater than 300. Patient did get relief of the burning sensation to the left shoulder and left arm with sublingual nitroglycerin. This also dropped her blood pressure. Triage Nursing notes reviewed and agree with them. Prior medical records reviewed Vital Signs: reviewed and remarkable for hypertension Differential diagnosis: Medication side effects, hypertensive urgency, STEMI, NSTEMI ER treatment provided: Nitroglycerin sublingual Diagnostics interpreted by me: ECG: Normal sinus rhythm at a rate of [address] segment elevation or signs of ischemia. There is no ectopy. Cardiac Monitoring: Sinus rhythm at 88 Laboratory studies: See below Imaging studies: As per my interpretation Chest x-ray: Cardiomegaly no acute consolidation or infiltrates noted HPI: 61/F arrives for evaluation of burning sensation to her left shoulder and left arm coupled with increasing blood pressure. The patient has had intermittent episodes of a burning sensation to her left shoulder and left arm over the past week. She had been diagnosed with a sinus infection for which she was prescribed a Medrol Dosepak approximately 2 days ago. She was noted to have an increased blood pressure and was prescribed clonidine by her PCP. Patient became more concerned because she has had a headache and the burning sensation worsened in her left shoulder, the left side of her neck and left arm tonight. Of note, the patient has been taking [id number] cold and sinus medications. The patient took some Advil for symptoms only initially began. ROS: See above HPI for pertinent positives & negatives. A total of 10 systems reviewed and were otherwise negative. PAST MEDICAL HISTORY:See Below PAST SURGICAL HISTORY:See Below FAMILY HISTORY:See Below SOCIAL HISTORY:See Below HOME MEDICATIONS:See list ALLERGIES:See list VITALS:See Below PHYSICAL EXAMINATION: HEENT: Head - normocephalic and atraumatic. Pupils are equal, round, and reactive to light. Extraocular eye muscles are intact, and sclera are anicteric. Nose - moist nasal mucosa without discharge. Mouth - moist buccal mucosa. Oropharynx is nonerythematous and there is no tonsillar exudate or edema noted. Neck: Supple; no cervical lymphadenopathy or JVD Heart: Regular rate and rhythm. There is a normal S1 and S2 with no murmurs, clicks, or gallops appreciated. Lungs: Clear to auscultation bilaterally with no wheezes, rales, or rhonchi. Abdomen: Soft, completely nontender, nondistended, with good bowel sounds. There are no palpable pulsatile masses or hepatosplenomegaly. There is no guarding, rigidity, or rebound noted. Extremities: No evidence of cyanosis, clubbing, or edema. There are easily palpable peripheral pulses. Skin: warm and dry with good turgor and no rashes. ED COURSE: Times/Reassessments: 2355: Patient was evaluated in room C8. A complete history and physical was performed. A twelve-lead EKG was obtained as described above. An order was placed for continuous cardiac monitoring. The patient was in a normal sinus rhythm at a rate of 88. An IV lock was initiated and labs were drawn as above. The patient was given sublingual nitroglycerin. This did relieve some of the discomfort in the left side of the neck, shoulder and left arm. It also dropped her blood pressure down nicely. Patient had an elevated troponin as well as a significantly elevated BSG. The patient's findings are consistent with an NSTEMI. She will be started on an IV heparin bolus and an IV heparin drip. Discussed the case with the [facility] hospitalist and they will evaluate for further management. I have personally spent greater than 45 minutes of critical care time in the direct management of this patient. This includes bedside care, interpretation of diagnostic studies, and testing, discussion with consultants, patient, and family members, and other required patient management activities. This 45 minutes is in excess of all separately billable procedures. Emmy Byrd DO Past Med/Surg History Medical History Abnormal finding on imaging Abnormal finding on imaging Anxiety Candidemia Depression Dysplasia of cervix, low grade (BOUCHRA 1) Elevated liver enzymes Family history of uterine fibroid Fever Gout High grade squamous intraepithelial cervical dysplasia History of COVID-19 Hypertension Hypothyroidism Morbid obesity Osteoarthritis Pelvic abscess in female Pelvic pain Postoperative fever Postoperative thrombophlebitis Prediabetes PVC (premature ventricular contraction) Sensation of pressure in bladder area Surgical History H/O tooth extraction History of tubal ligation Hx of cholecystectomy S/P laparoscopic hysterectomy Family History Brother Stroke Diabetes Mother Diabetes Hypertension Rheumatoid arthritis Stroke Father Pulmonary embolism Denies family history of Ovarian cancer Prostate cancer Myocardial infarction Breast cancer Colorectal cancer Social History Smoking Status: Former smoker Number of Years Since Quit: 18; Second Hand Exposure: No; Hx Alcohol Use: No Hx Substance Use: No Preferred Language: Filipino Communication Ability: Effective Visual Impairment: No Limitations Hearing Ability: Normal Remote Sensing Program Manager Required: No Beliefs That Will Affect Care: None marital status: Current Living Situation: Spouse current occupational status: employed current occupation: [employer] Feels Safe at Home: Yes Dental Care, Regularly: Yes Physical Activity Frequency: 1-2 Times per Week Seatbelt Use: always Assistive Devices: None Allergies Allergies Allergy/AdvReac Type Severity Reaction Status Date / Time methylprednisolone AdvReac elevated BP Verified 11/15/21 16:34 [From Medrol] Home Meds Previous Rx's Medication Instructions Recorded meloxicam 7.5 mg tablet 7.5 mg PO DAILY PRN #30 tab 02/20/21 blood sugar diagnostic (OneTouch #100 ea 02/27/21 Verio test strips) lancets 33 gauge (OneTouch Delica #100 ea 02/27/21 Lancets) trazodone 50 mg tablet 50 mg PO HS PRN #90 tab 03/09/21 cholecalciferol (vitamin D3) 50 50 mcg PO DAILY #90 cap 03/27/21 mcg (2,000 unit) capsule allopurinol 100 mg tablet 100 mg PO QAM #90 tab 07/17/21 amlodipine 2.5 mg tablet 2.5 mg PO QAM #30 tab 08/07/21 bupropion HCl 150 mg 24 hr tablet, 150 mg PO QAM #90 tab 09/03/21 extended release (Wellbutrin XL) nystatin 100,000 unit/gram topical 1 applic TOPICAL TID #60 g 09/18/21 powder levothyroxine 150 mcg tablet 150 mcg PO DAILY #90 tab 11/05/21 azithromycin 250 mg tablet See Rx Instructions PO .COMPLEX #6 11/14/21 tab methylprednisolone 4 mg tablets in See Rx Instructions .ROUTE 11/14/21 a dose pack (Medrol (Christian)) .COMPLEX #21 ea metoprolol succinate 25 mg 25 mg PO HS #90 tab 11/14/21 tablet,extended release 24 hr Results & Data (ED) Vital Signs Vital Signs - 24 hr 11/15/21 23:48 11/16/21 00:09 11/16/21 00:41 Temperature 37.0 C Temperature Source Oral Pulse Rate 88 86 88 Respiratory Rate 16 24 22 Respiratory Effort / Characteristics Non-Labored Respiratory Depth Normal Respiratory Pattern Regular Blood Pressure 196/113 H 207/113 H 182/96 H Blood Pressure Mean 140 144 124 Blood Pressure Position Sitting Pulse Oximetry 94 94 96 Oxygen Delivery Method Room Air Sepsis Recent Fever Within 48 Hours No Sepsis New/Unexplained Change in Mental Status No Sepsis Action Taken by Nursing No Action Required 11/16/21 01:33 Temperature Temperature Source Pulse Rate 82 Respiratory Rate 16 Respiratory Effort / Characteristics Respiratory Depth Respiratory Pattern Blood Pressure 159/83 H Blood Pressure Mean 108 Blood Pressure Position Pulse Oximetry 96 Oxygen Delivery Method Room Air Sepsis Recent Fever Within 48 Hours Sepsis New/Unexplained Change in Mental Status Sepsis Action Taken by Nursing Laboratory Data Result diagrams: 11/16/21 00:54 11/16/21 00:54 Lab Results 11/16/21 11/16/21 11/16/21 Range/Units 00:54 00:54 00:54 WBC 11.40 H (4.8-10.8) K/uL RBC 4.90 (4.2-5.4) M/uL Hgb 14.7 (12.0-16.0) g/dL Hct 42.1 (37-47) % MCV 85.9 (80-100) fL MCH 30.0 (25-34) pg MCHC 34.9 (32-36) g/dL RDW Std Deviation 41.5 (36.4-46.3) fL RDW Coeff of Cralyn 13.3 (11.5-14.5) % Plt Count 240 (130-400) K/uL MPV 9.6 (7.4-10.4) fL Immature Gran % (Auto) 1.1 % Neut % (Auto) 65.1 % Lymph % (Auto) 23.2 % Henry % (Auto) 9.3 % Eos % (Auto) 1.1 % Baso % (Auto) 0.2 % Neut # (Auto) 7.42 H (1.4-6.5) K/uL Lymph # (Auto) 2.65 (1.2-3.4) K/uL Henry # (Auto) 1.06 H (0.11-0.59) K/uL Eos # (Auto) 0.13 (0-0.5) K/uL Baso # (Auto) 0.02 (0-0.2) K/uL Immature Gran # (Auto) 0.12 H (0.00-0.02) K/uL APTT 24.5 (21.0-31.0) Seconds PTT Ratio 0.9 Sodium 132 L (136-145) mmol/L Potassium 3.7 (3.5-5.1) mmol/L Chloride 100 (98-107) mmol/L Carbon Dioxide 23 (21-32) mmol/L Anion Gap 9 (3-11) BUN 22 (6-23) mg/dl Creatinine 0.80 (0.6-1.2) mg/dl Est Cr Clr Drug Dosing 87.9 ml/min Est GFR ( Amer) 92.9 ml/min Est GFR (Non-Af Amer) 80.1 ml/min BUN/Creatinine Ratio 27.5 H (10-20) Glucose 350 H* (70-99(Fasting)) mg/dl Calcium 9.2 (8.5-10.1) mg/dl Total Bilirubin 0.5 (0.2-1.0) mg/dl AST 25 (13-39) U/L ALT 28 (7-52) U/L Alkaline Phosphatase 97 (34-104) U/L Troponin I 0.32 H* (0-0.04) ng/ml Total Protein 7.3 (6.0-8.3) gm/dl Albumin 4.0 (3.4-5.0) gm/dl Globulin 3.3 (2.5-4.0) gm/dl Albumin/Globulin Ratio 1.2 (0.9-2) Lipase 21 (11-82) U/L SARS-CoV-2, RNA, NAAT (NEGATIVE) 11/16/21 Range/Units 02:30 WBC (4.8-10.8) K/uL RBC (4.2-5.4) M/uL Hgb (12.0-16.0) g/dL Hct (37-47) % MCV (80-100) fL MCH (25-34) pg MCHC (32-36) g/dL RDW Std Deviation (36.4-46.3) fL RDW Coeff of Carlyn (11.5-14.5) % Plt Count (130-400) K/uL MPV (7.4-10.4) fL Immature Gran % (Auto) % Neut % (Auto) % Lymph % (Auto) % Henry % (Auto) % Eos % (Auto) % Baso % (Auto) % Neut # (Auto) (1.4-6.5) K/uL Lymph # (Auto) (1.2-3.4) K/uL Henry # (Auto) (0.11-0.59) K/uL Eos # (Auto) (0-0.5) K/uL Baso # (Auto) (0-0.2) K/uL Immature Gran # (Auto) (0.00-0.02) K/uL APTT (21.0-31.0) Seconds PTT Ratio Sodium (136-145) mmol/L Potassium (3.5-5.1) mmol/L Chloride (98-107) mmol/L Carbon Dioxide (21-32) mmol/L Anion Gap (3-11) BUN (6-23) mg/dl Creatinine (0.6-1.2) mg/dl Est Cr Clr Drug Dosing ml/min Est GFR ( Amer) ml/min Est GFR (Non-Af Amer) ml/min BUN/Creatinine Ratio (10-20) Glucose (70-99(Fasting)) mg/dl Calcium (8.5-10.1) mg/dl Total Bilirubin (0.2-1.0) mg/dl AST (13-39) U/L ALT (7-52) U/L Alkaline Phosphatase (34-104) U/L Troponin I (0-0.04) ng/ml Total Protein (6.0-8.3) gm/dl Albumin (3.4-5.0) gm/dl Globulin (2.5-4.0) gm/dl Albumin/Globulin Ratio (0.9-2) Lipase (11-82) U/L SARS-CoV-2, RNA, NAAT NEGATIVE (NEGATIVE) Administered Medications Acetaminophen (Acetaminophen 325 Mg Tab) 650 mg PO Q4H PRN PRN Reason: Pain or Fever Stop: 12/16/21 02:33 Last Admin: 11/16/21 05:18 Dose: 650 mg Documented by: [id number] Heparin Sodium/Dextrose (Heparin Sodium/Dextrose) 25,000 units in 500 mls @ 18 mls/hr IV .Q24H JU; Protocol Stop: 12/16/21 02:29 Last Admin: 11/16/21 05:16 Dose: 900 units/hr, 18 mls/hr Documented by: [id number] Cosigned by: [id number] Titration: 11/16/21 05:16 Dose: 1,350 units/hr, 27 mls/hr Documented by: [id number] Cosigned by: [id number] Admin: 11/16/21 02:43 Dose: 1,350 units/hr, 27 mls/hr Documented by: [id number] Cosigned by: [id number] Sodium Chloride (Nss 1000ml) 1,000 mls @ 60 mls/hr IV .[id number] JU Stop: 12/16/21 02:44 Last Admin: 11/16/21 06:52 Dose: 60 mls/hr Documented by: [id number] Discontinued Medications Aspirin (Aspirin 81 Mg Ectab) 81 mg PO QAM STA Stop: 11/16/21 02:45 Last Admin: 11/16/21 03:12 Dose: 81 mg Documented by: [id number] Fentanyl Citrate (Fentanyl Citrate 100 Mcg/2 Ml Vial) 50 mcg IV NOW STA Stop: 11/16/21 00:57 Last Admin: 11/16/21 01:03 Dose: 50 mcg Documented by: [id number] Heparin Sodium (Porcine) (Heparin Sod (Porcine) 1000 Unit/Ml) 1 units IV NOW ONE Stop: 11/16/21 02:26 Last Admin: 11/16/21 02:44 Dose: 6,000 units Documented by: [id number] Cosigned by: [id number] Heparin Sodium/Dextrose (Heparin Iv Adult Wt-Based Standard With Bolus Protocol) 1 ea IV NOW STA; Protocol Stop: 11/16/21 02:11 Last Admin: 11/16/21 02:44 Dose: Not Given Documented by: [id number] Heparin Sodium/Dextrose (Heparin Iv Adult Wt-Based Low-Dose *No* Bolus Protocol) 1 ea IV ONE ONE; Protocol Stop: 11/16/21 04:23 Last Admin: 11/16/21 05:16 Dose: Not Given Documented by: [id number] Insulin Aspart (Insulin Aspart Per Unit) 3 units SC ONCE ONE Stop: 11/16/21 04:07 Last Admin: 11/16/21 04:15 Dose: 3 units Documented by: [id number] Cosigned by: [id number] Insulin Aspart (Insulin Aspart Per Unit) Confirm Administered Dose 3 units .ROUTE .STK-MED ONE Stop: 11/16/21 04:14 Last Admin: 11/16/21 04:16 Dose: Not Given Documented by: [id number] Cosigned by: [id number] Nitroglycerin (Nitroglycerin Sl 0.4 Mg/Tab Tab) 0.4 mg SL UD PRN PRN Reason: Chest Pain Stop: 12/16/21 00:11 Last Admin: 11/16/21 00:18 Dose: 0.4 mg Documented by: [id number] Discharge Plan Visit Data Chief Complaint: Hypertension Stated Complaint: HIGH BP,PAIN DOWN ARMS/MORE SO ON L SIDE ED Provider: Emmy Byrd Discharge Problem: Acute non-ST elevation myocardial infarction (NSTEMI), Diabetes mellitus with hyperglycemia Discharge Instructions Interventions: ED Discharge Assessment Last Done: 11/16/21 04:21 Discharge Problem: Diabetes mellitus with hyperglycemia Qualifiers: Diabetes mellitus type: type 2 Diabetes mellitus correction insulin use: without equipment operator intermodal yard use Qualified Code(s): E11.65 - Type 2 diabetes mellitus with hyperglycemia
[2021-11-16] MEDS ORDERED: fentaNYL citrate 100 MCG/2 ML VIAL IV STA (00:56)
[2021-11-16 01:05] LABS: Basophils # (auto) 0.02 K/uL (0-0.2); Basophils % (auto) 0.2 %; Eosinophils # (auto) 0.13 K/uL (0-0.5); Eosinophils % (auto) 1.1 %; Hematocrit (blood only) 42.1 % (37-47); Hemoglobin 14.7 g/dL (12.0-16.0); Immature Granulocytes # (auto) 0.12 K/uL (0.00-0.02); Immature Granulocytes % (auto) 1.1 %; Lymphocytes # (auto) 2.65 K/uL (1.2-3.4); Lymphocytes % (auto) 23.2 %; Mean Corpuscular Hgb Conc 34.9 g/dL (32-36); Mean Corpuscular Volume 85.9 fL (80-100); Mean Platelet Volume 9.6 fL (7.4-10.4); Monocytes # (auto) 1.06 K/uL (0.11-0.59); Monocytes % (auto) 9.3 %; Neutrophils # (auto) 7.42 K/uL (1.4-6.5); Neutrophils % (auto) 65.1 %; Platelet Count 240 K/uL (130-400); RDW Coefficient of Variation 13.3 % (11.5-14.5); RDW Standard Deviation 41.5 fL (36.4-46.3)
[2021-11-16 01:51] LABS: Albumin Globulin Ratio 1.2 (0.9-2); BUN Creatinine Ratio 27.5 (10-20); Bilirubin,Total 0.5 mg/dl (0.2-1.0); Calcium 9.2 mg/dl (8.5-10.1); Creatinine Clr Calc Pharmacy 87.9 ml/min; Est GFR (African American) 92.9 ml/min; Est GFR (Non-African American) 80.1 ml/min; Globulin 3.3 gm/dl (2.5-4.0); Potassium 3.7 mmol/L (3.5-5.1); Total Protein 7.3 gm/dl (6.0-8.3)
[2021-11-16 01:52] LABS: Troponin I 0.32 ng/ml (0-0.04)
[2021-11-16] MEDS ORDERED: Heparin IV Adult Wt-Based Standard WITH Bolus Protocol IV STA (02:10)
[2021-11-16] MEDS ORDERED: HEPARIN SOD (PORCINE) 1000 UNIT/ML IV ONE ×2 (02:25→08:45)
[2021-11-16 02:30] LABS: Partial Thromboplastin Ratio 0.9; Partial Thromboplastin Time 24.5 Seconds (21.0-31.0)
[2021-11-16] MEDS ORDERED: MoRPHine SULFATE 2 MG/ML CARP IV PRN (02:34)
[2021-11-16] MEDS ORDERED: ONDANSETRON INJ 2 MG/ML 2 ML VIAL IV PRN (02:34)
--- NOTE | 2021-11-16 02:35 | History & Physical Report ---
Date of Service November 16, 2021 Assessment & Plan (1) Elevated troponin: Plan: This is a 61-year-old female with a past medical history of hypertension, hypothyroidism, type 2 diabetes, obesity, and prior tobacco use who presented to [facility] for evaluation of bilateral upper chest, shoulder, and arm pain associated with a headache, subsequently found to have an elevated troponin on admission. Her presentation is concerning for ACS. Atypical Chest Pain / Concern for ACS / Elevated Troponin -- Noted risk factors for ACS: T2DM, HTN, obesity, prior tobacco use - Patient reporting approx. 3 day history of burning-like chest discomfort over the upper bilateral chest, neck, and shoulders that is not worsened by exertion - On arrival, troponin found to be elevated to 0.32; ECG not revealing of any gross conduction/repolarization abnormalities - No obvious injury / findings on PE consistent with shingles (given burning like pain; though this is bilateral); possibly MSK related, anterior right shoulder somewhat TTP on exam. Lower suspicion for underlying pulmonary process, GERD/esophageal spasm. Does not seem, at this time, to be related to recent URI. - Last TTE (02/2021): LVEF 60-65% w/ moderate cLVH, mild LA dilation, mild MR, mild-moderate TR, mild pHTN (RSVP 40) - Trend troponin until downtrending - Continue low-dose heparin gtt (bolused in ER) - Initiate atorvastatin 40, ASA 81 -- would favor continuing even if not ACS given T2DM and numerous risk factors for ASCVD - Check lipid panel, A1c in AM - Check TTE in AM - Consult cardiology -- appreciate insight, need for catheterization while inpatient - NPO at midnight - ECG, nitro with new chest pain / discomfort Type 2 Diabetes - Last A1c measured at 7.0% in 02/2021 -- patient notes that it is soley diet- controlled - On arrival, BSG found to be 350 -- though has been on Medrol DP which is likely contributing - ACHS BSGs with SSI, CC ratio at 30 -- may require lower CC, recommend reviewing overnight BSGs and adjusting PRN - Education will be required prior to d/c HTN - Notably elevated BPs since arrival, but in setting of stress, corticosteroids noted and likely contributing - Favor to monitor pressures overnight, into tomorrow -- for now, continue amlodipine, metoprolol - Could consider adding ACEI in setting of T2DM, known LVH if further control needed vs. increasing metoprolol Anxiety / Mood - Continue Wellbutrin, Trazodone Hypothyroidism - Continue levothyroxine Gout - Continue allopurinol, no acute needs Respiratory Illness -- suspected sinusitis - Noted history of sinus-like symptoms over the week preceding admission; thankfully, quite minimal symptoms on arrival today - Favor to discontinue Medrol DP and azithromycin for now - Flonase for sinus irritation, can also add saline sprays - COVID-19 negative now x 2 within the last 3 days Diet: NPO in case of possible cath tomorrow PPX: ongoing heparin gtt Dispo: PCU Code: FULL CODE, d/w pt (2) Type 2 diabetes mellitus: (3) NAFLD (nonalcoholic fatty liver disease): (4) Gout: (5) Morbid obesity: (6) HTN (hypertension): (7) Hypothyroidism: (8) Calcification of coronary artery: (9) Anemia: (10) Snoring: (11) Sleep apnea: History of Present Illness Primary Care Provider: Aram Howard MD This is a 61-year-old female with a past medical history of hypertension, hypothyroidism, type 2 diabetes, obesity, and prior tobacco use who presented to [facility] for evaluation of L upper chest, shoulder, and arm pain associated with a headache. She states that she was recently seen by her PCP for what was suspected to be a sinus infection and started on Medrol DP and azithromycin. She has been taking these alongside Advil Cold and Sinus. Beginning around 2-3 days ago, she began experiencing intermittent bouts of bilateral shoulder / upper chest / neck pain. She denies deep substernal chest pain. It is burning in quality. She notes that it is not made worse with exertion. She denies feeling short of breath, PND, or orthopnea. She denies more swelling down in her legs at baseline. She came to the ED because of worsening symptoms. Denies any recent fevers, chills, sweats. COVID-19 negative in outpatient setting on 11/13. Symptoms absent at time of my visitation. She reports being a prior smoker, quitting >20 years ago. Denies regular alcohol use. No recreational drugs. Has not received shingles vaccination. In the ER, she was found to be hypertensive to 151/90, which subsequently increased to 207/113 at 0000. Her labs were significant for a mild leukocytosis and hyperglycemia to 350. Her troponin was elevated to 0.32 on arrival. Her CXR did not show obvious consolidation. Her ECG demonstrated prominence of aVL, concerning for LVH by voltage, but no acute conduction changes. She was given ASA 324mg x 1 and started on heparin after a bolus. She was given fentanyl and nitroglycerin for pain control. Allergies Allergy/AdvReac Type Severity Reaction Status Date / Time methylprednisolone AdvReac elevated BP Verified 11/15/21 16:34 [From [employer]] Home Medications Medication Instructions Recorded Confirmed Type meloxicam 7.5 mg tablet 7.5 mg PO DAILY PRN #30 tab 02/20/21 11/16/21 Rx blood sugar diagnostic (OneTouch #100 ea 02/27/21 11/14/21 Rx Verio test strips) lancets 33 gauge (ImmunoPhotonicsTouch Delica #100 ea 02/27/21 11/14/21 Rx Lancets) trazodone 50 mg tablet 50 mg PO HS PRN #90 tab 03/09/21 11/16/21 Rx cholecalciferol (vitamin D3) 50 50 mcg PO DAILY #90 cap 03/27/21 11/16/21 Rx mcg (2,000 unit) capsule allopurinol 100 mg tablet 100 mg PO QAM #90 tab 07/17/21 11/16/21 Rx amlodipine 2.5 mg tablet 2.5 mg PO QAM #30 tab 08/07/21 11/16/21 Rx bupropion HCl 150 mg 24 hr tablet, 150 mg PO QAM #90 tab 09/03/21 11/16/21 Rx extended release (Wellbutrin XL) nystatin 100,000 unit/gram topical 1 applic TOPICAL TID #60 g 09/18/21 11/16/21 Rx powder levothyroxine 150 mcg tablet 150 mcg PO DAILY #90 tab 11/05/21 11/16/21 Rx metoprolol succinate 25 mg 25 mg PO HS #90 tab 11/14/21 11/16/21 Rx tablet,extended release 24 hr aspirin 81 mg tablet,delayed 81 mg PO QAM #0 tab 11/16/21 Rx release atorvastatin 40 mg tablet 40 mg PO QAM #0 tab 11/16/21 Rx clopidogrel 75 mg tablet 75 mg PO QAM #0 tab 11/16/21 Rx lisinopril 10 mg tablet 10 mg PO QAM #0 tab 11/16/21 Rx Past Med/Surg History Medical History Abnormal finding on imaging Abnormal finding on imaging Anxiety Candidemia Depression Dysplasia of cervix, low grade (BOUCHRA 1) Elevated liver enzymes Family history of uterine fibroid Fever Gout High grade squamous intraepithelial cervical dysplasia History of COVID-19 Hypertension Hypothyroidism Morbid obesity Osteoarthritis Pelvic abscess in female Pelvic pain Postoperative fever Postoperative thrombophlebitis Prediabetes PVC (premature ventricular contraction) Sensation of pressure in bladder area Surgical History H/O tooth extraction History of tubal ligation Hx of cholecystectomy S/P laparoscopic hysterectomy Family History Brother Stroke Diabetes Mother Diabetes Hypertension Rheumatoid arthritis Stroke Father Pulmonary embolism Denies family history of Ovarian cancer Prostate cancer Myocardial infarction Breast cancer Colorectal cancer Social History Smoking Status: Former smoker Number of Years Since Quit: 18; Second Hand Exposure: No; Hx Alcohol Use: No Hx Substance Use: No Preferred Language: Slovak Communication Ability: Effective Visual Impairment: No Limitations Hearing Ability: Normal 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 HEENT: NCAT. Mouth - MMM with no tonsillar edema or exudates. No JVD. Cardiac: Normal rate and regular rhythm; S1 and S2 present with no murmurs, rubs, or gallops. Pulmonary: Good respiratory effort with symmetric expansion of the chest. No use of accessory muscles. Lungs were clear to auscultation bilaterally with no crackles or wheezes. Abdominal: Normoactive bowel sounds. Abdomen was soft, nondistended, and non- tender to palpation. No hepatomegaly or splenomegaly. Extremities: Upper and lower extremities are warm and well perfused. Trace peripheral edema bilaterally. Skin: No rash across the anterior chest or shoulders. Results & Data Results & Data ([facility]) Vital Signs (Past 12 Hours) Vital Signs Temp Pulse Resp BP Pulse Ox 11/16/21 01:33 82 16 159/83 H 96 11/16/21 00:41 88 22 182/96 H 96 11/16/21 00:09 86 24 207/113 H 94 11/15/21 23:48 37.0 C 88 16 196/113 H 94 Supervising Physician Co-Signing Physician Notes Attending addendum: I have physically seen this patient, have supervised the medical residents activities, and agree with the H&P unless as otherwise noted. Assessment and Plan: Elevated troponin/ACS- Telemetry admission Troponin 0.32 upon admission Continue heparin drip begun in ED Give aspirin 3 and 24 mg now and then 80 mg every morning Potassium 3.7, replaced orally to target her for Check a fasting lipid panel and hemoglobin A1c Start atorvastatin 40 mg daily Consult interventional cardiology Dr. Glenn Flores Diabetes mellitus- Glucose 350 upon admission, likely secondary to methylprednisolone use as an outpatient Place on Accu-Cheks before meals and at bedtime with NovoLog coverage per scale Remaining orders and notations as noted Resident Activity Tracking Resident Involvement: Resident Care Provided Care Provided: Adult Hospital Medicine
[2021-11-16] MEDS: HEPARIN SODIUM/DEXTROSE 25,000 UNITS/500 ML BAG IV SCH ×2 (02:43→05:16)
[2021-11-16] MEDS ORDERED: ASPIRIN 81 MG ECTAB PO STA (02:44)
[2021-11-16] MEDS ORDERED: SODIUM CHLORIDE 0.9% 1000ML 1,000 ML IV SCH ×2 (02:45→16:45)
[2021-11-16] MEDS ORDERED: INSULIN ASPART PER UNIT SC ONE (04:06)
[2021-11-16] MEDS ORDERED: INSULIN ASPART PER UNIT ONE (04:13)
[2021-11-16] MEDS ORDERED: CARBOHYDRATES FOR HYPOGLYCEMIA PO PRN (04:22)
[2021-11-16] MEDS ORDERED: HEPARIN SODIUM/DEXTROSE 25,000 UNITS/500 ML BAG IV SCH (04:22)
[2021-11-16] MEDS ORDERED: GLUCOSE 40% GEL 15 GM TUBE PO PRN (04:22)
[2021-11-16] MEDS ORDERED: GLUCOSE 10 TABS/TUBE PO PRN (04:22)
[2021-11-16] MEDS ORDERED: DEXTROSE 50% 50 ML SYRINGE IV PRN (04:22)
[2021-11-16] MEDS ORDERED: Heparin IV Adult Wt-Based Low-Dose *NO* Bolus Protocol IV ONE (04:22)
[2021-11-16] MEDS ORDERED: GLUCAGON FOR INJ 1 MG VIAL SQ PRN (04:22)
[2021-11-16] MEDS ORDERED: traZODone HCL 50 MG TAB PO PRN (04:22)
[2021-11-16] MEDS: ACETAMINOPHEN 325 MG TAB PO PRN ×2 (05:18→17:34)
[2021-11-16] MEDS ORDERED: LEVOTHYROXINE SODIUM 150 MCG TABLET PO SCH (06:30)
[2021-11-16 07:35] LABS: Partial Thromboplastin Ratio 1.4; Partial Thromboplastin Time 35.9 Seconds (21.0-31.0)
--- NOTE | 2021-11-16 07:41 | XRay Report ---
SINGLE VIEW CHEST CLINICAL HISTORY: Atypical chest pain FINDINGS: An AP, portable, upright chest radiograph is compared to study dated 02/23/2021 and correlat ed with chest CT dated 02/20/2021. The examination is degraded by portable technique and apical lordot ic positioning. The heart is enlarged noting atherosclerotic calcification of the thoracic aorta. The pulmonary vasculature is noncongested. Atelectasis is noted at the lung bases. The lungs and pleural spaces are otherwise clear. No pneumothorax is seen. The skeletal structures are osteopenic. The bon y thorax is grossly intact. Degenerative change is seen throughout the thoracic spine. IMPRESSION: Cardiomegaly with no acute cardiopulmonary abnormality. ACT 112: Negative or not required by law. Electronically signed by: Refugio Blanco M.D. 11/16/2021 7:39 AM
[2021-11-16 07:54] LABS: BUN Creatinine Ratio 28.4 (10-20); Calcium 9.4 mg/dl (8.5-10.1); Chol HDL Ratio 3.9 (0-5); Creatinine Clr Calc Pharmacy 104.9 ml/min; Est GFR (African American) 110.7 ml/min; Est GFR (Non-African American) 95.5 ml/min; Potassium 4.2 mmol/L (3.5-5.1)
[2021-11-16] MEDS ORDERED: amLODIPine BESYLATE 5 MG TAB PO SCH (09:00)
[2021-11-16] MEDS ORDERED: ATORVASTATIN 40 MG TAB PO SCH (09:00)
[2021-11-16] MEDS ORDERED: allopurinoL 100 MG TAB PO SCH (09:00)
[2021-11-16] MEDS ORDERED: FLUTICASONE PROPIONATE NA SPR 16 GM BTL SCH (09:00)
[2021-11-16] MEDS ORDERED: buPROPion XL 150 MG TABCR PO SCH (09:00)
[2021-11-16 09:12] LABS: Estimated Average Glucose 194 mg/dl; Hemoglobin A1C 8.4 % (4.5-5.6)
[2021-11-16] MEDS: INSULIN ASPART PER UNIT SC SCH ×5 (09:48→20:24)
--- NOTE | 2021-11-16 10:25 | XCELERA ---
[id number]
[2021-11-16] MEDS ORDERED: hydrALAZINE HCL 20 MG/ML VIAL IV STA (12:08)
--- NOTE | 2021-11-16 13:15 | Hospitalist Progress Note ---
Date of Service November 16, 2021 Assessment & Plan (1) Acute non-ST elevation myocardial infarction (NSTEMI): Plan: This is a 61-year-old female with a past medical history of hypertension, hypothyroidism, type 2 diabetes, obesity, and prior tobacco use who presented to [facility] for evaluation of bilateral upper chest, shoulder, and arm pain associated with a headache, subsequently found to have an elevated troponin on admission. Her presentation is concerning for ACS. Atypical Chest Pain - Possibly ACS: - Presenting with approx. 3 day history of burning-like chest discomfort over the upper bilateral chest, neck, and shoulders that is not worsened by exertion - Troponin on arrival 0.32 - current trend up to 0.48 and and another troponin is pending - Echo - EF 65-70%; no regional wall motion abnormalities; mild LVH; mildly dilated ascending aorta; no significant change from February 2021 - Currently on heparin gtt; Continue ASA 81 mg daily and further addition pending catheterization - Atorvastatin 40 mg daily - Toprol XL 25 mg HS - Consideration for ACEI given elevated BP (2) Diabetes mellitus with hyperglycemia: Plan: - A1c 8.4 - Previously 7 and worked on diet control - given age and increasing A1c and concern for cardiac issues should likely be started at least on oral coverage - Patient on medrol dosepak prior to coming in which may contribute some to the elevated sugars - Continue SSI - Consult contractor general engineering (3) HTN (hypertension): Plan: - Elevated - may be stress/steroid induced - Continue Amlodipine and Metoprolol; consider ACEI given T2DM and cardiac concerns (4) Sinus congestion: Plan: - Flonase daily (5) Hypothyroidism: Plan: - Last TSH low; will recheck with AM labs - Continue Levothyroxine 150 mcg daily (6) Gout: Plan: - Allopurinol 100 mg daily Plan: Await cardiac catheterization; Pending intervention likely can D/C home tomorrow Admission and Anticipated Discharge Date Admission Date: November 16, 2021 Subjective No acute events overnight. Patient is pending cardiac catheterization. She reports no current chest pain or SOB. She has been running high on BP and report s having a headache over the past few days. Troponins slightly bumped from initial lab. She verbalizes no new complaints. Review of Systems Review of Systems: All systems reviewed & are unremarkable except as noted in Subjective Physical Exam Physical Exam: PHYSICAL EXAM General Appearance: WDWN in NAD who is A&O x 3 HEENT: Head is normocephalic/atraumatic; Hearing grossly intact; Mucous membranes moist Neck: Supple; Trachea midline; Neg JVD Heart: RRR with no M/G/R Lungs: CTA in all lung pickett bilaterally; Respirations unlabored; Neg accessory muscle use Abdomen: Soft, non-tender, non-distended; Positive BS x 4 quadrants Extremities: Neg cyanosis or edema Neurological: Speech clear; Gross motor/sensory function intact; Neg focal neurologic deficits Psychiatric: Appropriate mood/affect Skin: Normal Color; Warm/Dry Results & Data Results & Data ([facility]) Vital Signs (Past 12 Hours) Vital Signs Temp Pulse Pulse Resp BP BP Pulse Ox 11/16/21 11:23 87 18 177/99 H 97 11/16/21 08:00 36.9 C 79 18 153/92 H 96 11/16/21 03:16 79 18 156/86 H 98 11/16/21 01:33 82 16 159/83 H 96 PG Care Time/CCT Total # of Minutes Spent Total Time Spent with Patient: Total time spent is greater than 50% in coordination of care (as documented) at patient's floor/unit and/or counseling patient: Coding Level of Care Code None Diagnoses Acute non-ST elevation myocardial infarction (NSTEMI) I21.4 Diabetes mellitus with hyperglycemia E11.65 Diabetes mellitus senior living insulin use: without senior living use Diabetes mellitus type: type 2 HTN (hypertension) I10 Sinus congestion R09.81 Hypothyroidism E03.9 Gout M10.9 (1) Diabetes mellitus with hyperglycemia Diabetes mellitus watermaster insulin use: without senior living use Diabetes mellitus type: type 2 Qualified Code(s): E11.65 - Type 2 diabetes mellitus with hyperglycemia
[2021-11-16] MEDS ORDERED: LIDOCAINE 1% LOCAL 20 ML VIAL ONE (13:23)
[2021-11-16] MEDS ORDERED: niCARdipine HCL INJ 2.5 MG/ML 10 ML AMP ONE (13:23)
[2021-11-16] MEDS ORDERED: NITROGLYCERIN/D5W 100MCG/ML 20ML SYR ONE (13:23)
[2021-11-16] MEDS ORDERED: MIDAZOLAM HCL 1 MG/ML 2ML VIAL ONE ×4 (13:31→15:10)
[2021-11-16] MEDS ORDERED: fentaNYL citrate 100 MCG/2 ML VIAL ONE ×2 (13:32→14:42)
[2021-11-16] MEDS ORDERED: HEPARIN (PORCINE) 1000 UNIT/ML 10 ML (CATH LAB USE ONLY) ONE ×2 (13:35→15:13)
--- NOTE | 2021-11-16 13:46 | Pre Anesthesia Assessment ---
Date of Service November 16, 2021 Pre Sedation Assessment Vital Signs Temp Pulse Pulse Resp BP BP Pulse Ox 11/16/21 11:23 87 18 177/99 H 97 11/16/21 08:00 98.4 F 79 18 153/92 H 96 11/16/21 03:16 79 18 156/86 H 98 11/16/21 01:33 82 16 159/83 H 96 11/16/21 00:41 88 22 182/96 H 96 11/16/21 00:09 86 24 207/113 H 94 11/15/21 23:48 98.6 F 88 16 196/113 H 94 Cardiovascular RRR, no murmur, no edema Respiratory normal respiratory effort, lungs clear to auscultation Pre-Sedation Airway Assessment Smoking Status: Former smoker Hx Sleep Apnea: Yes Hx Difficult Intubation: No Short, Thick Neck: Yes Thyromental Distance: < 3.5 Finger Breadths Oral Cavity: + WNL Mallampati Class: III ASA: ASA3 NPO Status Date of Last Intake of Fluids: 11/16/21 Time of Last Intake of Fluids: 07:00 Last Oral Intake of Fluids Comment: sips with pills Date of Last Intake of Solid Food: 11/15/21 Time of Last Intake of Solid Foods: 20:00 Procedure Planning Contraindications for Sedation: none Current Medications Reviewed: Yes Notes The planned sedation has been discussed with the patient. Informed Consent was obtained. I have identified the patient, determined the appropriateness of sedation and have assessed the patient immediately prior to the procedure. All medicine(s) and interventions are by my order.
--- NOTE | 2021-11-16 14:05 | Electrocardiogram Report ---
Test Reason : Blood Pressure : / mmHG Vent. Rate : 090 BPM Atrial Rate : 090 BPM P-R Int : 168 ms QRS Dur : 090 ms QT Int : 362 ms P-R-T Axes : 025 -11 049 degrees QTc Int : 442 ms Normal sinus rhythm Possible Left atrial enlargement Left ventricular hypertrophy with repolarization abnormality Inferior infarct (cited on or before 14-OCT-1993) Abnormal ECG When compared with ECG of 08-FEB-2021 21:57, No significant change was found Confirmed by Juan Ray ([id number]) on 11/16/2021 2:05:05 PM Referred By: REFERRED SELF Confirmed By:Juan Ray
[2021-11-16] MEDS ORDERED: LABETALOL HCL IV 5 MG/ML 20ML (CATH LAB USE ONLY) ONE (14:17)
--- NOTE | 2021-11-16 15:44 | Post Anesthesia Assessment ---
Date of Service November 16, 2021 Post Sedation Assessment Vital Signs Temp Pulse Pulse Resp BP BP Pulse Ox 11/16/21 11:23 87 18 177/99 H 97 11/16/21 08:00 98.4 F 79 18 153/92 H 96 11/16/21 03:16 79 18 156/86 H 98 11/16/21 01:33 82 16 159/83 H 96 11/16/21 00:41 88 22 182/96 H 96 11/16/21 00:09 86 24 207/113 H 94 11/15/21 23:48 98.6 F 88 16 196/113 H 94 Recovery Score Activity: Moves 4 extremities Respiration: Deep Breath/Cough Circulation: +/-20% PreAnes Value Consciousness: Fully Awake Oxygen Saturation: O2 needed for >90% Discharge Sedation Level of Care: Fast Track Phase II Post Sedation Plan On clinical assessment, the patient appears to have tolerated the sedation without complications. Patient is recovering as anticipated. Patient will continue to be monitored by nursing and may be discharged when sedation discharge criteria are met per below protocol. Upon Completions of procedure up to 15 minutes continue every 5 minute vital si gns and the P.A.R. score; then discharge to a Phase I or Fast Track to Phase II per the following guidelines: * Discharge Patient to appropriate Phase II area if PAR is 8 or greater or return to pre- procedure baseline. The post - procedure orders will be as directed. * If PAR score is less than 8 or not return to pre-procedure baseline then patient will follow Phase I monitoring till PAR is reached for Phase II. The Phase I may be done in procedure room or may call to secure a Phase I area. * If naloxone or flumazenil are used for reversal, hold in Phase I for continued monitoring from when last reversal dose was given for a minimum of 60 minutes or longer pending the nurse and/or physician discretion of patient condition before discharge to Phase II. Please call the Sedation Physician to re-evaluate and complete post-note for discharge to Phase II area. Do NOT discharge from procedure sedation or Phase 1 until post- sedation evaluation note is complete by procedure /sedation MD Sedation Discharge Instructions to be given to the patient at discharge to home.
--- NOTE | 2021-11-16 15:52 | Cardiac Catheterization ---
[facility] Data: Cellar Supervisor Cardiac Status Clinical evaluation leading to the procedure CAD Presenation: Non STEMI Anginal Classification: CCS IV Heart Failure: No Cardiogenic Shock within 24 Hours: No Cardiac Arrest within 24 Hours: No Imaging Studies Past 6 Months: Yes Stress Studies Past 6 Months: No Diagnostic Physicians Name: Glenn Flores MD Status: Elective Closure Device Percutaneous Entry Location: Radial Closure Device: Radial Band Recommendations: PCI without planned CABG Lesion Segment Name: Mid RCA Culprit Artery: Yes Stenosis Prior to Rx (%): 98 Chronic Total Occlusion: No IVUS: No FFR: No Pre-Procedure GAYATHRI Flow: 2 Previously Treated Lesion: No Lesion Complexity: High/C Lesion Length (mm): 15 Thrombus Present: Yes Bifurcation Lesion: No Guidewire Across Lesion: Stenosis Post-Procedure (%): 90 Post-Procedure GAYATHRI Flow: 3 Devices(s) Deployed: No Yes Intraprocedure Events Significant Disection: No Perforation: No Cardiac Cath Procedure Full Procedure Date November 16, 2021 Pre-Procedure Diagnosis Pre-Procedure Diagnosis: Non STEMI AUC Score AUC Score: 8 Post-Procedure Diagnosis Post-Procedure Diagnosis: Severe CAD, Unsuccessful PCI and Normal Intracardiac Pressures Procedure(s) Performed Procedure(s) Performed: Coronary Angiography, Left Heart Cath and PTCA Digital Marketing Strategist Glenn Flores MD Freezer Tunnel Operator(s) Adama Estimated Blood Loss Estimated Blood Loss: None Medication(s) Medication(s): Fentanyl, Heparin, Lidocaine 1%, Nicardipine, Nitroglycerin and Versed Summary of Findings Indication: NSTEMI Access: 6 Fr right radial artery Catheters: Allison. JR4, AR-1, AL-1 guides Findings: LM -normal caliber, no significant disease LAD -calcified, medium caliber, 50% mid segment stenosis prior to bifurcation with D2. Small very distal LAD as wraps around apex with 90% focal stenosis Ramusmedium caliber no significant disease Circumflex -medium caliber, 20% ostial, small OM1 with 50% proximal disease RCA -dominant, large caliber vessel, GAYATHRI II-III flow. Heavily calcified. 40- 50% proximal, 40% mid, 98% latemid stenosis calcified with thrombus. Distal vessel/PAV with luminal irregularities. 40 to 50% proximal stenosis large right distal PLB. LVEDP -1 -- PCI -- Antithrombotic therapy: Heparin, clopidogrel Procedure: RCA cannulation initially attempted with AR-1, then JR4. Eventually transition to AL-1. After multiple attempts eventually able to pass long whisper wire across stenosis With the aid of a telescope support catheter able to pass 2.0 OTW balloon across stenosis Distal intraluminal position confirmed via injection through catheter Whisper wire exchanged for mailman support wire Latemid RCA stenosis dilated with 2.0 balloon Multiple attempts to pass 3.0, 2.5 balloons across stenosis but unable to pass calcified mid segment Switch to femoral approach for more support considered but it was thought patient would likely need arthrectomy regardless and procedure stopped Post procedure GAYATHRI III flow, no evidence of dissection. Residual 90% stenosis Arterial Closure: TR band Summary: 1. Severe multi-vessel coronary artery disease -Heavily calcified RCA with 98% latemid stenosis and GAYATHRI II-III flow 50% mid LAD. Small very distal LAD with 90% stenosis as wraps around apex. 2. Normal intracardiac filling pressure 3. Unsuccessful PCI of mid RCA. Stenosis dilated with 2.0 balloon. Unable to pass larger balloon/stents across stenosis. Residual 90% stenosis with GAYATHRI-3 flow. Recommendations: Recommend transfer to tertiary center for consideration of high risk PCI with atherectomy. Plan to transfer to [facility] cardiology in [place] when bed available. In the interim continue heparin infusion, low-dose nitroglycerin infusion and DAPT with aspirin, clopidogrel. Hemodynamics Rest Ao:: 131/83/121 Final Ao: [id number] LV: 128/1 Recommendations Recommendations: PCI without planned CABG Specimens Specimens: None Radiation Exposure (mGy) 5719 Contrast (mls) 130 Fluids (cc crystalloids) Fluids (cc crystalloids): 250 Drains Drains: None Anesthesia Moderate 5129-5845 Procedural Complication(s) None Disposition PCU I attest to the content of the Intraoperative Record and any orders documented therein. Any exceptions are noted below. [employer] Card Cath Procedure Codes Cardiac Catheterization Procedure 1: Cardiovascular Cath Procedures: 22827 Coronaries and LHC (+/-LV) Moderate Sedation Procedure 1: Sedation/Anesthesia: 73575 Mod Sedation by the same physician;Init15 Min Child Age 5 & Up Procedure 2: Sedation/Anesthesia: 15096 Mod Sedation by the same physician; Ea [id number] Minutes Angioplasty Procedure 1: Cardiovascular Angioplasty Procedures: 72724 PTCA; Single mafor coronary artery or branch RC LC LD PG Care Time/CCT Total # of Minutes Spent Total Time Spent with Patient: Total time spent is greater than 50% in coordination of care (as documented) at patient's floor/unit and/or counseling patient:
[2021-11-16] MEDS ORDERED: STAT IV Infusion **Titration per Protocol STA (16:30)
[2021-11-16] MEDS ORDERED: CLOPIDOGREL BISULFATE 300 MG TAB PO STA (16:30)
[2021-11-16] MEDS ORDERED: NITROGLYCERIN/D5W 100MCG/ML 250 ML IV SCH (16:30)
[2021-11-16] MEDS ORDERED: lisinopril 10 MG TAB PO SCH (16:45)
[2021-11-16 16:59] LABS: Partial Thromboplastin Ratio > 5.3
[2021-11-16 17:03] LABS: Partial Thromboplastin Time > 139.0 Seconds (21.0-31.0)
--- NOTE | 2021-11-16 18:52 | Cardiology Consultation ---
Date of Consultation November 16, 2021 Assessment & Plan (1) Acute non-ST elevation myocardial infarction (NSTEMI): 2. Type 2 diabetes 3. Hypertension Presentation consistent with acute coronary syndrome. Recommend further evaluation with cardiac catheterization. Discussed risk, benefits, alternatives of procedure with patient and she is willing to proceed. N.p.o. in the interim, continue heparin infusion. Further recommendation pending findings of coronary angiography. History of Present Illness Attending Physician: Canelo Buckner DO History of Present Illness Mrs. Perez is a very pleasant 61-year-old woman seen in the ED today due to NSTEMI. She has a history of type 2 diabetes, hypertension, hypertriglyceridemia, hypothyroidism, obesity, sleep apnea. Patient is been having stuttering chest pain for the last 2 days radiating to her shoulders and bilateral arms. Has never had similar symptoms in the past. Noted her blood pressure to be significantly elevated yesterday and with persistent pain presented to ED. On arrival ECG showed sinus rhythm LVH with questionable old inferior infarct and with very subtle inferior ST segment elevations. Troponin mildly elevated at 0.32 and trended up to 0.55. Heparin fusion overnight. No recurrent chest pain. Echo this morning showed moderate LVH, LVEF 65% with no regional wall motion abnormalities. No significant valve pathology. Ascending aorta mildly dilated (4.2 cm). Allergies Allergy/AdvReac Type Severity Reaction Status Date / Time methylprednisolone AdvReac elevated BP Verified 11/15/21 16:34 [From SeeFuture] Home Medications Medication Instructions Recorded Confirmed Type meloxicam 7.5 mg tablet 7.5 mg PO DAILY PRN #30 tab 02/20/21 11/16/21 Rx blood sugar diagnostic ([employer] #100 ea 02/27/21 11/14/21 Rx Verio test strips) lancets 33 gauge (OneTouch Delica #100 ea 02/27/21 11/14/21 Rx Lancets) trazodone 50 mg tablet 50 mg PO HS PRN #90 tab 03/09/21 11/16/21 Rx cholecalciferol (vitamin D3) 50 50 mcg PO DAILY #90 cap 03/27/21 11/16/21 Rx mcg (2,000 unit) capsule allopurinol 100 mg tablet 100 mg PO QAM #90 tab 07/17/21 11/16/21 Rx amlodipine 2.5 mg tablet 2.5 mg PO QAM #30 tab 08/07/21 11/16/21 Rx bupropion HCl 150 mg 24 hr tablet, 150 mg PO QAM #90 tab 09/03/21 11/16/21 Rx extended release (Wellbutrin XL) nystatin 100,000 unit/gram topical 1 applic TOPICAL TID #60 g 09/18/21 11/16/21 Rx powder levothyroxine 150 mcg tablet 150 mcg PO DAILY #90 tab 11/05/21 11/16/21 Rx azithromycin 250 mg tablet See Rx Instructions PO .COMPLEX #6 11/14/21 11/16/21 Rx tab methylprednisolone 4 mg tablets in See Rx Instructions .ROUTE 11/14/21 11/16/21 Rx a dose pack (Medrol (Christian)) .COMPLEX #21 ea metoprolol succinate 25 mg 25 mg PO HS #90 tab 11/14/21 11/16/21 Rx tablet,extended release 24 hr Patient History Medical History Abnormal finding on imaging Abnormal finding on imaging Anxiety Candidemia Depression Dysplasia of cervix, low grade (BOUCHRA 1) Elevated liver enzymes Family history of uterine fibroid Fever Gout High grade squamous intraepithelial cervical dysplasia History of COVID-19 Hypertension Hypothyroidism Morbid obesity Osteoarthritis Pelvic abscess in female Pelvic pain Postoperative fever Postoperative thrombophlebitis Prediabetes PVC (premature ventricular contraction) Sensation of pressure in bladder area Surgical History H/O tooth extraction History of tubal ligation Hx of cholecystectomy S/P laparoscopic hysterectomy Family History Brother Stroke Diabetes Mother Diabetes Hypertension Rheumatoid arthritis Stroke Father Pulmonary embolism Denies family history of Ovarian cancer Prostate cancer Myocardial infarction Breast cancer Colorectal cancer Social History Smoking Status: Former smoker Number of Years Since Quit: 18; Second Hand Exposure: No; Hx Alcohol Use: No Hx Substance Use: No Preferred Language: Surinamese Communication Ability: Effective Visual Impairment: No Limitations Hearing Ability: Normal Regional Service Manager Required: No Beliefs That Will Affect Care: None marital status: Current Living Situation: Spouse current occupational status: employed current occupation: [employer] Feels Safe at Home: Yes Safety Concerns: Feels Safe At This Time Dental Care, Regularly: Yes Physical Activity Frequency: 1-2 Times per Week Seatbelt Use: always Assistive Devices: None Review of Systems Review of Systems: All systems reviewed & are unremarkable except as noted in HPI & below Physical Exam Physical Exam: General: Comfortable HEENT: Sclerae anicteric, Mask in place Lungs: Clear to auscultation bilaterally, no crackles or wheezes Cardiac: Regular rate and rhythm, no murmurs. Vascular: 2+ radial, DP pulses. No bruits Abdomen: Soft, nontender Extremities: Well perfused, no peripheral edema Neuro: Nonfocal Psych: Alert orient x3, normal affect and mood Results & Data ([facility]) Vital Signs (Past 12 Hours) Vital Signs Temp Pulse Pulse Resp BP BP Pulse Ox 11/16/21 17:45 92 H 16 95 11/16/21 17:30 94 H 19 178/145 H 94 11/16/21 17:15 96 H 17 94 11/16/21 17:00 93 H 16 164/110 H 95 11/16/21 16:45 94 H 15 95 11/16/21 16:30 92 H 21 146/102 H 96 11/16/21 16:15 93 H 17 94 11/16/21 16:01 87 13 188/99 H 97 11/16/21 16:00 85 18 170/90 H 152/70 H 97 11/16/21 15:59 96 11/16/21 15:40 88 18 138/78 98 11/16/21 13:00 96 H 11 L 196/101 H 11/16/21 12:45 90 18 11/16/21 12:30 89 21 11/16/21 12:15 84 14 11/16/21 12:00 86 21 193/108 H 11/16/21 11:56 83 15 183/108 H 11/16/21 11:45 93 H 21 11/16/21 11:30 91 H 10 L 11/16/21 11:23 87 18 177/99 H 97 11/16/21 11:15 86 20 11/16/21 11:14 94 H 18 177/99 H 11/16/21 11:00 88 23 11/16/21 10:45 98 H 21 11/16/21 10:30 83 16 11/16/21 10:15 80 16 11/16/21 10:00 79 16 11/16/21 09:45 83 17 11/16/21 09:30 80 17 11/16/21 09:15 82 23 11/16/21 09:00 78 20 91 11/16/21 08:45 79 17 96 11/16/21 08:30 73 20 93 11/16/21 08:20 74 15 96 11/16/21 08:00 98.4 F 79 18 153/92 H 96 PG Care Time/CCT Total # of Minutes Spent Total Time Spent with Patient: Total time spent is greater than 50% in coordination of care (as documented) at patient's floor/unit and/or counseling patient: Coding Level of Care Code 57241 Inpt Consult Level 4 Diagnoses Acute non-ST elevation myocardial infarction (NSTEMI) I21.4
[2021-11-16] MEDS ORDERED: METOPROLOL SUCC 25MG EXT REL TAB PO SCH (21:00)
[2021-11-16] MEDS ORDERED: METOPROLOL TARTRATE 25 MG TAB PO SCH (21:00)
[2021-11-16 21:22] VITALS: BP 117/71; PULSE 84; TEMP 98.6; O2SAT 94
--- NOTE | 2021-11-17 01:52 | Billing Data ---
Date of Service November 17, 2021 Coding Level of Care Code INT OBSERVATION CARE 70M LVL 3
[2021-11-17] MEDS ORDERED: ASPIRIN 81 MG ECTAB PO SCH (09:00)
[2021-11-17] MEDS ORDERED: CLOPIDOGREL BISULFATE 75 MG TAB PO SCH (09:00)
--- NOTE | 2021-11-22 17:52 | Discharge Summary ---
Date of Service November 22, 2021 Admission HPI Per Admitting Provider This is a 61-year-old female with a past medical history of hypertension, hypothyroidism, type 2 diabetes, obesity, and prior tobacco use who presented to [facility] for evaluation of L upper chest, shoulder, and arm pain associated with a headache. She states that she was recently seen by her PCP for what was suspected to be a sinus infection and started on Medrol DP and azithromycin. She has been taking these alongside Advil Cold and Sinus. Beginning around 2-3 days ago, she began experiencing intermittent bouts of bilateral shoulder / upper chest / neck pain. She denies deep substernal chest pain. It is burning in quality. She notes that it is not made worse with exertion. She denies feeling short of breath, PND, or orthopnea. She denies more swelling down in her legs at baseline. She came to the ED because of worsening symptoms. Denies any recent fevers, chills, sweats. COVID-19 negative in outpatient setting on 11/13. Symptoms absent at time of my visitation. She reports being a prior smoker, quitting >20 years ago. Denies regular alcohol use. No recreational drugs. Has not received shingles vaccination. In the ER, she was found to be hypertensive to 151/90, which subsequently increased to 207/113 at 0000. Her labs were significant for a mild leukocytosis and hyperglycemia to 350. Her troponin was elevated to 0.32 on arrival. Her CXR did not show obvious consolidation. Her ECG demonstrated prominence of aVL, concerning for LVH by voltage, but no acute conduction changes. She was given ASA 324mg x 1 and started on heparin after a bolus. She was given fentanyl and nitroglycerin for pain control. Principal Diagnosis CAD Discharge Exam General: well developed, well nourished, no acute distress, comfortable Neck: supple, trachea midline, normal thyroid Lungs: clear to auscultation bilaterally, normal respiratory effort, no accessory muscle use, no distress Heart: regular S1 and S2, no murmur, peripheral pulses normal, capillary refill normal, no edema Abdomen: soft, NT, ND, + BS, no hepatomegaly, normal to percussion Extremities: normal in appearance, no cyanosis, no petechiae, strength is 5/5 bilaterally Neuro: awake, cooperative, moves all extremities, no focal motor deficits, CN II-XII intact, sensation in extremities intact, normal speech Skin: warm, dry, no rash, normal turgor Psych: Awake, alert oriented x 3, euthymic affect Discharge Data Allergies Allergy/AdvReac Type Severity Reaction Status Date / Time methylprednisolone AdvReac elevated BP Verified 11/15/21 16:34 [From Medrol] Consultations 11/16/21 02:09 ED Decision to Admit Stat 11/16/21 02:34 Consult Cardiology Routine 11/16/21 21:17 Burn CD for patient Stat Procedures Performed Operation Date: 11/16/21 13:00 Actual Procedures p Cath, Left with Cors and Vent - Hugh Flores MD s Cineradiography w/Routine Exam - Hugh Flores MD p POBA SGL Vessel - Hugh Flores MD Ordered Studies 11/16/21 13:20 CL Cath Imgs for PACS use only Routine Hospital Course (1) Acute non-ST elevation myocardial infarction (NSTEMI): This is a 61-year-old female with a past medical history of hypertension, hypothyroidism, type 2 diabetes, obesity, and prior tobacco use who presented to [facility] for evaluation of bilateral upper chest, shoulder, and arm pain associated with a headache, subsequently found to have an elevated troponin on admission. Her presentation is concerning for ACS. Atypical Chest Pain - Possibly ACS: - Presenting with approx. 3 day history of burning-like chest discomfort over the upper bilateral chest, neck, and shoulders that is not worsened by exertion - Troponin on arrival 0.32 - current trend up to 0.48 and and another troponin is pending - Echo - EF 65-70%; no regional wall motion abnormalities; mild LVH; mildly dilated ascending aorta; no significant change from February 2021 - Currently on heparin gtt; Continue ASA 81 mg daily and further addition pending catheterization - Atorvastatin 40 mg daily - Toprol XL 25 mg HS left heart cath: advanced disease, transfer to [place] for advanced intervention (2) Diabetes mellitus with hyperglycemia: - A1c 8.4 - Previously 7 and worked on diet control - given age and increasing A1c and concern for cardiac issues should likely be started at least on oral coverage - Patient on medrol dosepak prior to coming in which may contribute some to the elevated sugars - Continue SSI - Consult assistant health educator (3) HTN (hypertension): - Elevated - may be stress/steroid induced - Continue Amlodipine and Metoprolol; consider ACEI given T2DM and cardiac concerns (4) Sinus congestion: - Flonase daily (5) Hypothyroidism: - Last TSH low; will recheck with AM labs - Continue Levothyroxine 150 mcg daily (6) Gout: - Allopurinol 100 mg daily Await cardiac catheterization; Pending intervention likely can D/C home tomorrow Total Time Total Time Spent Total Time Spent (In Minutes): 33 Discharge Plan Discharge Items Patient Disposition: Transfer Acute Care Hospital Reason For Visit: NSTEMI Discharge Diagnosis: Severe Multi-Vessel CAD; NSTEMI Activity: Per Instructions section Non-emergency contact: Primary Care Provider and Branch Operation Evaluation Manager Call non-emergency contact if: you have any medication questions, your symptoms worsen and you have a fever Follow-up/Referrals: Aram Howard MD [Primary Care Provider] - Diet: Carb Consistent or DM2 and Heart Healthy Addtl Attending Provider Instructions: This is a 61-year-old female with a past medical history of hypertension, hyp othyroidism, type 2 diabetes, obesity, and prior tobacco use who presented to [facility] for evaluation of bilateral upper chest, shoulder, and arm pain associated with a headache, subsequently found to have an elevated troponin on admission. Her presentation is concerning for ACS. Atypical Chest Pain - Possibly ACS: - Presenting with approx. 3 day history of burning-like chest discomfort over the upper bilateral chest, neck, and shoulders that is not worsened by exertion - Troponin on arrival 0.32 - current trend up to 0.48 and trending down to 0.55 - Echo - EF 65-70%; no regional wall motion abnormalities; mild LVH; mildly dilated ascending aorta; no significant change from February 2021 - Currently on heparin gtt; Continue ASA 81 mg daily and Plavix daily - Atorvastatin 40 mg daily - Toprol XL 25 mg HS - Started Lisinopril 10 mg dailiy - Found to have severe multi-vessel CAD - on heparin gtt, nitro infusion -- Planning transfer to tertiary care center - [facility] - accepting provided Dr. Sanchez (2) Diabetes mellitus with hyperglycemia: - A1c 8.4 - Previously 7 and worked on diet control - given age and increasing A1c and concern for cardiac issues should likely be started at least on oral coverage - Patient on medrol dosepak prior to coming in which may contribute some to the elevated sugars - Continue SSI - Consult assistant health educator (3) HTN (hypertension): - Elevated - may be stress/steroid induced - Continue Amlodipine and Metoprolol; consider ACEI given T2DM and cardiac concerns (4) Sinus congestion: - Flonase daily (5) Hypothyroidism: - Last TSH low; will recheck with AM labs - Continue Levothyroxine 150 mcg daily (6) Gout: - Allopurinol 100 mg daily Pending Studies at Discharge: No Stand-Alone Forms: My [facility] Skilled Items Patient informed of condition?: Yes DNR: No Discharge Level of Care: Other Communicable Disease: No Discharge Prognosis: Stable Lines: Peripheral IV Urinary Catheter: No Medications and DC Order Prescriptions: New atorvastatin 40 mg Tablet 40 mg PO QAM Qty: 0 RF: 0 clopidogrel 75 mg Tablet 75 mg PO QAM Qty: 0 RF: 0 aspirin 81 mg Tablet,Delayed Release (Dr/Ec) 81 mg PO QAM Qty: 0 RF: 0 lisinopril 10 mg Tablet 10 mg PO QAM Qty: 0 RF: 0 Continued meloxicam 7.5 mg tablet 7.5 mg PO DAILY PRN (Reason: Pain) Qty: 30 RF: 3 trazodone 50 mg tablet 50 mg PO HS PRN (Reason: Sleep) Qty: 90 RF: 3 cholecalciferol (vitamin D3) 50 mcg (2,000 unit) capsule 50 mcg PO DAILY Qty: 90 RF: 3 allopurinol 100 mg tablet 100 mg PO QAM Qty: 90 RF: 3 amlodipine 2.5 mg tablet 2.5 mg PO QAM Qty: 30 RF: 5 bupropion HCl [Wellbutrin XL] 150 mg tablet extended release 24 hr 150 mg PO QAM Qty: 90 RF: 3 nystatin 100,000 unit/gram powder 1 applic topical TID Qty: 60 RF: 1 levothyroxine 150 mcg tablet 150 mcg PO DAILY Qty: 90 RF: 1 (DME) OneTouch Verio test strips Strip See Rx Instructions .ROUTE .MEDSUPPLY Qty: 100 RF: 1 (DME) lancets [OneTouch Delica Lancets] 33 gauge misc See Rx Instructions .ROUTE .MEDSUPPLY Qty: 100 RF: 1 Discontinued methylprednisolone [Medrol (Christian)] 4 mg tablets,dose pack See Rx Instructions .Route .COMPLEX Qty: 21 RF: 0 azithromycin 250 mg tablet See Rx Instructions PO .COMPLEX Qty: 6 RF: 0 No Action metoprolol succinate 25 mg tablet extended release 24 hr 25 mg PO BID Qty: 60 RF: 1 Discharge Orders: Discharge Order (Routine); Ordered 11/16/21 Ordered By: Deacon Rangel Admission Data Admit Date/Time: 11/16/21 02:34 Attending Provider: Canelo Buckner Admit Provider: Albin Greer Primary Care Provider: Aram Howard V. Other Providers: Lee Ponce ; Mack Salmeron ; Apollo Howard ; Juan Ray ; Ac Rankin ; Fabiano Pinon Jr ; Stanislav Jarvis ; Viky Carroll ; Elaina Garner ; Hugh Flores ; Glenn Adorno ; Benton Mirza ; Yanely Ward ; Rosetta Gould ; Hank Dumont ; Adrián Gee ; Elmer Mejía Coding Level of Care Code D/C DAY MANAGEMENT >30 MINS Diagnoses Acute non-ST elevation myocardial infarction (NSTEMI) I21.4 Diabetes mellitus with hyperglycemia E11.65 Diabetes mellitus jail insulin use: without jail use Diabetes mellitus type: type 2 HTN (hypertension) I10 Sinus congestion R09.81 Hypothyroidism E03.9 Gout M10.9
== END 2021-11-16 22:09 | disposition short-term general hospital (02) | DRG 251 ==
LOC: ED 23:45 → EDINP 11-16 02:34 → SUATTDRO 11-16 02:34 → 2S 11-16 04:21

== ENCOUNTER 2024-09-19 18:57 | Inpatient (IN) ==
[2024-09-19 19:30] LABS: Basophils # (auto) 0.06 K/uL (0.00-0.20); Basophils % (auto) 0.6 %; Eosinophils # (auto) 0.09 K/uL (0.00-0.50); Hematocrit (blood only) 42.5 % (37.0-47.0); Hemoglobin 14.9 g/dl (12.0-16.0); Immature Granulocytes # (auto) 0.04 K/uL (0.01-0.20); Immature Granulocytes % (auto) 0.4 %; Lymphocytes # (auto) 3.03 K/uL (1.20-3.40); Mean Corpuscular Hemoglobin 30.2 pg (25.0-34.0); Mean Corpuscular Hgb Conc 35.1 g/dL (32.0-36.0); Mean Corpuscular Volume 86.2 fL (80.0-100.0); Mean Platelet Volume 10.6 fL (9.4-12.4); Monocytes # (auto) 0.88 K/uL (0.11-0.59); Monocytes % (auto) 9.3 %; Neutrophils # (auto) 5.37 K/uL (1.40-6.50); Neutrophils % (auto) 56.7 %; Platelet Count 192 K/uL (130-400); RDW Coefficient of Variation 13.2 % (11.5-14.5); RDW Standard Deviation 40.5 fL (36.4-46.3); Red Blood Count 4.93 M/uL (4.20-5.40); White Blood Count 9.47 K/ul (4.8-10.8)
--- NOTE | 2024-09-19 20:09 | Emergency Department Note ---
Impression & Plan Chest pain ED Provider Note ED Provider Note NAME: ELIGIO INFANTE AGE:63 SEX: Female : 1960 ARRIVES VIA: Private vehicle INFORMANT: Patient ED PROVIDER(s): Sunita Downing DO CHIEF COMPLAINT: Chest pain HPI: This is a 63-year-old female who presents emerged department due to concern for chest burning. Patient states she has been having intermittent symptoms of chest burning that goes into bilateral arms over the course of the last 2 to 3 weeks. She states in this past week it got worse. She states today she also noticed some burning to the top of her back across her shoulders and lower neck. She denies shortness of breath, fevers or chills, URI symptoms, nausea or vomiting, or dizziness. No recent change in urine or stools, no recent leg swelling. Patient does have prior cardiac history and does have an indwelling cardiac stent. She follows with Dr. Flores. She states she does take low-dose aspirin daily, no other antiplatelet or anticoagulation medications. No recent change in activity or exercise. She states the Mounjaro she takes was recently increased a week and a half ago from 7.5 to 10 mg. She states she does have a history of reflux, no prior EGD. PAST MEDICAL HISTORY:See Below PAST SURGICAL HISTORY:See Below FAMILY HISTORY:See Below SOCIAL HISTORY:See Below HOME MEDICATIONS:See Below ALLERGIES:See Below VITALS:See Below PHYSICAL EXAMINATION: GENERAL: alert, well appearing, well nourished, no distress, non-toxic EYE EXAM: normal conjunctiva, PERRL and EOM's grossly intact OROPHARYNX: no exudate, no erythema, lips, buccal mucosa, and tongue normal and mucous membranes are moist NECK: supple, no nuchal rigidity, no adenopathy, non-tender LUNGS: Clear to auscultation. Normal chest wall mechanics, no w/r/r HEART: no murmurs, S1 normal and S2 normal, no change in symptoms with palpation ABDOMEN: abdomen soft, non-tender, normo-active bowel sounds, no masses, no rebound or guarding. SKIN: no rashes, petechiae, orbruising UPPER EXTREMITIES: upper extremities are grossly normal. FROM, nml pulses b/l. LOWER EXTREMITIES: No pitting edema. FROM, nml pulses b/l. NEURO EXAM: Normal sensorium, cranial nerves II-XII grossly intact, normal speech, no facial droop,nogross weakness of arms, no gross weakness of legs. Gross sensation intact. No ataxia. Vital Signs: reviewed and remarkable Differential Diagnosis: acute coronary syndrome, pericarditis, pulmonary embolus, aortic dissection, pneumonia, pneumothorax, musculoskeletal pain, shingles, GERD, GI bleed, as well as others were considered MEDICAL DECISION MAKING: THis is a 63 yo female who presents to the ER with concern for chest burning into arm and across upper shoulders. She was afebrile and VS stable. She has been having symptoms intermittently for 2-3 weeks. No other illness. Her symptoms began before her most recent medication changes. Labs drawn and sent, IV established, EKG and CXR performed and interpreted at bedside, and patient placed on telemetry. Troponin negative. Patient given IV protonix, IV famotidine, IV tylenol, maalox and carafate with improvement but not resolution. As a precaution due to description of symptoms, she was sent for CTA chest and repeat troponin sent. These were reassuring also. Due to concern for condition as she describes symptoms as similar to her prior NSTEMI, case discussed with store sales consultant cardiology. After further discussion with the patient, she was in agreement with the plan for additional inpatient evaluation. Case discussed with hospitalist team additionally. I suspect some component or GI etiology but given hx of CAD and description of symptoms I feel further inpatient evaluation is warranted at this time. Consultation(s): 0010: Discussed with Dr. Howard via [employer]. Will plan for stress test tomorrow. No need for heparin. 0030: Discussed with Dr. Sampson, CT hospitalist, for additional evaluation and mgmt. ER Treatment Provided: See below Diagnostics Interpreted By Me: -ECG: Normal sinus at 97, normal axis, normal intervals, no acute ST/T wave changes -Cardiac Monitoring: An order was placed for continuous cardiac monitoring. The monitor shows a rate of 80 with normal sinus rhythm. -Laboratory studies: As stated above and show below. -Imaging studies: X-ray Chest: A single view study of the chest was reviewed and was negative for cardiomegaly, focal infiltrate, effusion, pulmonary edema, or wide mediastinum. Triage Nursing Note Reviewed Prior/Outside Records Reviewed - cath from 01/2022 reviewed Past Med/Surg History Problem List (Updated 09/20/24 @ 11:30 by Apollo Howard MD) GERD (gastroesophageal reflux disease) Chest pain (Acute) Epigastric pain Colon cancer screening (2021) S/P right coronary artery (RCA) stent placement JOSE 11/19/2021- [facility] Sleep apnea Echocardiogram abnormal H/O: hysterectomy Hydronephrosis, left Low back pain Encounter for annual routine gynecological examination Subchondral cyst Left foot pain Calcification of coronary artery (Acute) Liver cyst Kidney cysts Hypothyroidism (Acute) Premature ventricular contractions (Acute) Recurrent periodic urticaria (Acute) Vitamin D deficiency disease (Acute) Health care maintenance HTN (hypertension) (Chronic) CAD (coronary artery disease) Type 2 diabetes mellitus NAFLD (nonalcoholic fatty liver disease) Gout Medical History Burning chest pain Interscapular pain High serum calcium Sleep disturbances Metabolic disorder Sleep apnea cpap Acute non-ST elevation myocardial infarction (NSTEMI) 2021 > 1 stent > [place] Postoperative thrombophlebitis resolved Morbid obesity Osteoarthritis Hypothyroidism Depression Anxiety PVC (premature ventricular contraction) takes metoprolol Hypertension follows w/ Kip Faviola History of COVID-19 09/08/2020 tested [facility], SOB muscle body ache, fatigue, cough, headaches, hair loss. Gait disturbance Surgical History History of cataract surgery right Hx of LASIK History of heart artery stent 2021 X 1 stent History of colonoscopy S/P laparoscopic hysterectomy complicated by ? cuff infection, SPT and yosvany septicemia H/O tooth extraction wisdom teeth Hx of cholecystectomy History of tubal ligation Family History Brother Stroke Diabetes Mother Diabetes Hypertension Rheumatoid arthritis Stroke Father Pulmonary embolism Denies family history of Ovarian cancer Prostate cancer Myocardial infarction Breast cancer Colorectal cancer Social History Smoking Status: Former smoker Tobacco Type: Cigarettes Second Hand Exposure: No; Do You Dip or Chew Tobacco: No; Hx Alcohol Use: No Hx Substance Use: No Preferred Language: Prydein[place] Communication Ability: Effective Visual Impairment: No Limitations Hearing Ability: Normal Electromyographic Technician Required: No Beliefs That Will Affect Care: None marital status: Current Living Situation: Spouse current occupational status: employed current occupation: [employer] Feels Safe at Home: Yes Dental Care, Regularly: Yes Physical Activity Frequency: 1-2 Times per Week Seatbelt Use: always Assistive Devices: BiPap Allergies Allergies Allergy/AdvReac Type Severity Reaction Status Date / Time atorvastatin AdvReac Intermediate myalgia,art Verified 09/20/24 00:55 hralgia methylprednisolone AdvReac Intermediate elevated BP Verified 09/20/24 00:55 [From Medrol] semaglutide [From Ozempic] AdvReac Intermediate yeast Verified 09/20/24 00:55 infection empagliflozin AdvReac Mild yeast Verified 09/20/24 00:55 [From Jardiance] infection Home Meds Previous Rx's Medication Instructions Recorded lancets 33 gauge ([facility] #100 ea 02/27/21 Lancets) cholecalciferol (vitamin D3) 50 50 mcg PO DAILY #90 caps 03/27/21 mcg (2,000 unit) capsule aspirin 81 mg tablet,delayed 81 mg PO QAM #90 tabs 12/14/21 release trazodone 50 mg tablet 50 mg PO DAILY PRN sleep #90 tabs 09/03/22 CPAP Supplies #1 ea 10/16/22 nitroglycerin 0.4 mg sublingual 0.4 mg sublingual Q5M PRN chest 06/04/23 tablet pain #20 tabs blood sugar diagnostic (OneTouch #100 ea 08/04/23 Verio test strips) meloxicam 7.5 mg tablet 7.5 mg PO DAILY PRN Pain #90 tabs 10/27/23 lisinopril 20 mg tablet 20 mg PO QAM #90 tabs 02/17/24 metoprolol succinate 50 mg 50 mg PO PM #90 tabs 06/23/24 tablet,extended release 24 hr allopurinol 100 mg tablet 100 mg PO QAM #90 tabs 07/20/24 rosuvastatin 40 mg tablet 40 mg PO PM #90 tabs 08/02/24 levothyroxine 50 mcg tablet 50 mcg PO QAM #30 tabs 09/17/24 pantoprazole 40 mg tablet,delayed 40 mg PO QAM #30 tabs 09/20/24 release Results & Data (ED) Vital Signs Vital Signs - 24 hr 09/19/24 19:02 09/19/24 19:46 09/19/24 19:52 Temperature 36.5 C Temperature Source Temporal Artery Scan Pulse Rate 105 H 97 H Pulse Rate [Right Finger] 99 H Pulse Rate from SpO2 Sensor Respiratory Rate 16 19 Respiratory Effort / Characteristics Non-Labored Spontaneous Respiratory Depth Normal Respiratory Pattern Regular Blood Pressure 157/95 H Blood Pressure [Right Arm] 148/101 H Blood Pressure Mean 115 Blood Pressure Mean [Right Arm] 116 Pulse Oximetry 96 96 Oxygen Delivery Method Room Air Room Air Sepsis Recent Fever Within 48 Hours No Sepsis New/Unexplained Change in Mental Status No Sepsis Action Taken by Nursing No Action Required 09/19/24 21:00 09/19/24 21:00 09/19/24 22:36 Temperature Temperature Source Pulse Rate 84 Pulse Rate [Right Finger] Pulse Rate from SpO2 Sensor 84 Respiratory Rate 12 Respiratory Effort / Characteristics Respiratory Depth Respiratory Pattern Blood Pressure 123/83 Blood Pressure [Right Arm] Blood Pressure Mean 96 Blood Pressure Mean [Right Arm] Pulse Oximetry 96 96 Oxygen Delivery Method Room Air Room Air Sepsis Recent Fever Within 48 Hours Sepsis New/Unexplained Change in Mental Status Sepsis Action Taken by Nursing 09/19/24 23:47 Temperature Temperature Source Pulse Rate 79 Pulse Rate [Right Finger] Pulse Rate from SpO2 Sensor Respiratory Rate Respiratory Effort / Characteristics Respiratory Depth Respiratory Pattern Blood Pressure Blood Pressure [Right Arm] Blood Pressure Mean Blood Pressure Mean [Right Arm] Pulse Oximetry Oxygen Delivery Method Sepsis Recent Fever Within 48 Hours Sepsis New/Unexplained Change in Mental Status Sepsis Action Taken by Nursing Laboratory Data 09/19/24 19:10 09/19/24 19:10 Lab Results 09/19/24 09/19/24 Range/Units 19:10 22:29 WBC 9.47 (4.8-10.8) K/ul RBC 4.93 (4.20-5.40) M/uL Hgb 14.9 (12.0-16.0) g/dl Hct 42.5 (37.0-47.0) % MCV 86.2 (80.0-100.0) fL MCH 30.2 (25.0-34.0) pg MCHC 35.1 (32.0-36.0) g/dL RDW Std Deviation 40.5 (36.4-46.3) fL RDW Coeff of Carlyn 13.2 (11.5-14.5) % Plt Count 192 (130-400) K/uL MPV 10.6 (9.4-12.4) fL Immature Gran % (Auto) 0.4 % Neut % (Auto) 56.7 % Lymph % (Auto) 32.0 % [place] % (Auto) 9.3 % Eos % (Auto) 1.0 % Baso % (Auto) 0.6 % Neut # (Auto) 5.37 (1.40-6.50) K/uL Lymph # (Auto) 3.03 (1.20-3.40) K/uL [place] # (Auto) 0.88 H (0.11-0.59) K/uL Eos # (Auto) 0.09 (0.00-0.50) K/uL Baso # (Auto) 0.06 (0.00-0.20) K/uL Immature Gran # (Auto) 0.04 (0.01-0.20) K/uL PT 10.9 (9.0-12.0) Seconds INR 1.0 (0.9-1.1) APTT 26 (21-31) Seconds PTT Ratio 1.0 Sodium 142 (136-145) mmol/L Potassium 4.2 (3.5-5.1) mmol/L Chloride 108 H (98-107) mmol/L Carbon Dioxide 29 (21-32) mmol/L Anion Gap 5 (3-11) BUN 19 (6-23) mg/dl Creatinine 0.68 (0.6-1.2) mg/dl Est Cr Clr Drug Dosing 87.2 ml/min eGFR 98.41 BUN/Creatinine Ratio 27.9 H (10-20) Glucose 99 (70-99(Fasting)) mg/dl Calcium 10.1 (8.6-10.3) mg/dl Total Bilirubin 0.7 (0.2-1.0) mg/dl AST 22 (13-39) U/L ALT 26 (7-52) U/L Alkaline Phosphatase 80 (34-104) U/L Troponin I High Sens 4.8 4.8 (0-14) pg/ml Total Protein 7.2 (6.0-8.3) gm/dl Albumin 4.4 (3.4-5.0) gm/dl Globulin 2.8 (2.5-4.0) gm/dl Albumin/Globulin Ratio 1.6 (0.9-2) Administered Medications Discontinued Medications Acetaminophen (Acetaminophen 325 Mg Tab) 650 mg PO NOW STA Stop: 09/20/24 01:14 Last Admin: 09/20/24 01:32 Dose: 650 mg Documented By: SHYANNE Al Hydrox/Mg Hydrox/Simethicone (Aluminum/Magnesium Susp 30 Ml Udc) 15 ml PO NOW STA Stop: 09/19/24 21:35 Last Admin: 09/19/24 21:39 Dose: 15 ml Documented By: HOOD Allopurinol (Allopurinol 100 Mg Tab) 100 mg PO [facility] Stop: 10/20/24 08:59 Last Admin: 09/20/24 09:10 Dose: 100 mg Documented By: GAIL Aspirin (Aspirin 81 Mg Ectab) 81 mg PO [facility] Stop: 10/20/24 08:59 Last Admin: 09/20/24 09:10 Dose: 81 mg Documented By: GAIL Pantoprazole Sodium (Protonix) 40 mg in 10 mls @ 5 mls/min IV NOW ONE Stop: 09/19/24 20:03 Last Admin: 09/19/24 20:30 Dose: 5 mls/min Documented By: HOOD Acetaminophen (Ofirmev) 1,000 mg in 100 mls @ 400 mls/hr IV NOW STA Stop: 09/19/24 21:48 Last Infusion: 09/19/24 23:02 Dose: Infused Documented By: Admin: 09/19/24 21:39 Dose: 400 mls/hr Documented By: HOOD Sodium Chloride (Nss) 500 mls @ 999 mls/hr IV .Q31M ONE Stop: 09/19/24 22:09 Last Infusion: 09/19/24 23:02 Dose: Infused Documented By: Admin: 09/19/24 21:43 Dose: 999 mls/hr Documented By: HOOD Famotidine (Pepcid 20mg Iv Push) 20 mg in 5 mls @ 2.5 mls/min IV NOW STA Stop: 09/20/24 00:08 Last Admin: 09/20/24 00:14 Dose: 2.5 mls/min Documented By: SHYANNE Sodium Chloride (Nss) 1,000 mls @ 80 mls/hr IV .[id number] JU Stop: 09/21/24 08:14 Last Admin: 09/20/24 09:05 Dose: 80 mls/hr Documented By: RRR Ioversol (Optiray 320 125ml) 119 ml IV ONCE ONE Stop: 09/19/24 22:07 Last Admin: 09/19/24 22:07 Dose: 119 ml Documented By: SOFÍA Levothyroxine Sodium (Levothyroxine Sodium 50 Mcg Tablet) 50 mcg PO DAILYBB [facility] Stop: 10/20/24 06:29 Last Admin: 09/20/24 05:45 Dose: 50 mcg Documented By: CHUNG Lisinopril (Lisinopril 20 Mg Tab) 20 mg PO [facility] Stop: 10/20/24 08:59 Last Admin: 09/20/24 08:27 Dose: Not Given Documented By: RRR Lorazepam (Lorazepam 2 Mg/1 Ml Vial) 0.5 mg IV NOW [facility] Stop: 09/20/24 08:29 Last Admin: 09/20/24 08:56 Dose: 0.5 mg Documented By: RRR Pantoprazole Sodium (Pantoprazole 40 Mg Tab) 40 mg PO [facility] Stop: 10/20/24 11:59 Last Admin: 09/20/24 13:56 Dose: 40 mg Documented By: RRR Sucralfate (Sucralfate 1 Gm/10 Ml Udc) 1 gm PO NOW [facility] Stop: 09/20/24 00:08 Last Admin: 09/20/24 00:13 Dose: 1 gm Documented By: KMS Imaging Data Radiologist's Impression: Chest X-Ray 09/19/24 19:05 Exam(s): XR CXR 1 VIEW EXAM: XR Chest, 1 View CLINICAL HISTORY: Reason for exam: Chest pain, nonspecific. TECHNIQUE: Frontal view of the chest. COMPARISON: November 16, 2021. FINDINGS: Lungs: Unremarkable. No acute infiltration, atelectasis or mass. Pleural space: Unremarkable. No pneumothorax or pleural fluid. Heart: Unremarkable. No cardiomegaly. Mediastinum: Unremarkable. Normal mediastinal contour. Bones/joints: Extensive degenerative spur formation in the thoracic spine. No acute bone abnormality. IMPRESSION: No acute findings in the chest. Electronically signed by: Benton Mcdowell MD 09/19/24 23:50 PM Chest CTA 09/19/24 21:37 Exam(s): CTA CHEST W/WO Contrast IV Amt: OPTIRAY 320 119ML EXAM: CT Angiography Chest Without and With Intravenous Contrast CLINICAL HISTORY: Reason for exam: chest pain, back pain. TECHNIQUE: Axial computed tomographic angiography images of the chest without and with intravenous contrast. CTDI is 28.03 mGy and DLP is 877.02 mGy-cm. Automated exposure control was utilized for the study. A dose lowering technique was utilized adhering to the principles of ALARA. MIP reconstructed images were created and reviewed. CONTRAST: Patient received OPTIRAY 320 119ML of IV contrast COMPARISON: No relevant prior studies available. FINDINGS: Pulmonary arteries: Unremarkable. No pulmonary embolism. Aorta: No acute findings. No thoracic aortic aneurysm. Lungs: Unremarkable. No mass. No consolidation. Pleural space: Unremarkable. No significant effusion. No pneumothorax. Heart: Unremarkable. No cardiomegaly. No significant pericardial effusion. No evidence of RV dysfunction. Bones/joints: No acute fracture. No dislocation. Soft tissues: Unremarkable. Lymph nodes: Unremarkable. No enlarged lymph nodes. IMPRESSION: No evidence of pulmonary emboli or acute cardio permanent process. Electronically signed by: Benton Mcdowell MD 09/20/24 00:07 AM Discharge Plan Visit Data Chief Complaint: Chest Pain Stated Complaint: BURNING IN CHEST AND DOWN ARMS, TINGLING ED Provider: Sunita Downing Discharge Problem: Chest pain Patient Disposition: Admitted As Inpatient Discharge Instructions Interventions: ED Discharge Assessment Last Done: 09/20/24 01:54
[2024-09-19 20:21] LABS: Partial Thromboplastin Time 26 Seconds (21-31); Prothrombin Time 10.9 Seconds (9.0-12.0)
[2024-09-19 20:23] LABS: Albumin Globulin Ratio 1.6 (0.9-2); Albumin Level 4.4 gm/dl (3.4-5.0); BUN Creatinine Ratio 27.9 (10-20); Bilirubin,Total 0.7 mg/dl (0.2-1.0); Calcium 10.1 mg/dl (8.6-10.3); Creatinine Clr Calc Pharmacy 87.2 ml/min; Globulin 2.8 gm/dl (2.5-4.0); Potassium 4.2 mmol/L (3.5-5.1); Total Protein 7.2 gm/dl (6.0-8.3); Troponin I High Sensitivity 4.8 pg/ml (0-14)
[2024-09-19] MEDS: PANTOprazole 40 MG/10 ML SYR IV ONE (20:30)
[2024-09-19] MEDS: ALUMINUM/MAGNESIUM SUSP 30 ML UDC PO STA (21:39)
[2024-09-19] MEDS: ACETAMINOPHEN 1,000 MG/100 ML VIAL IV STA (21:39)
[2024-09-19] MEDS: SODIUM CHLORIDE 0.9% 500 ML IV ONE (21:43)
[2024-09-19] MEDS: OPTIRAY 320 125ml IV ONE (22:07)
--- NOTE | 2024-09-19 23:51 | XRay Report ---
Exam(s): XR CXR 1 VIEW EXAM: XR Chest, 1 View CLINICAL HISTORY: Reason for exam: Chest pain, nonspecific. TECHNIQUE: Frontal view of the chest. COMPARISON: November 16, 2021. FINDINGS: Lungs: Unremarkable. No acute infiltration, atelectasis or mass. Pleural space: Unremarkable. No pneumothorax or pleural fluid. Heart: Unremarkable. No cardiomegaly. Mediastinum: Unremarkable. Normal mediastinal contour. Bones/joints: Extensive degenerative spur formation in the thoracic spine. No acute bone abnormality. IMPRESSION: No acute findings in the chest. Electronically signed by: Benton Mcdowell MD 09/19/24 23:50 PM
--- NOTE | 2024-09-20 00:08 | CT Scan Report ---
Exam(s): CTA CHEST W/WO Contrast IV Amt: OPTIRAY 320 119ML EXAM: CT Angiography Chest Without and With Intravenous Contrast CLINICAL HISTORY: Reason for exam: chest pain, back pain. TECHNIQUE: Axial computed tomographic angiography images of the chest without and with intravenous contrast. CTDI is 28.03 mGy and DLP is 877.02 mGy-cm. Automated exposure control was utilized for the study. A dose lowering technique was utilized adhering to the principles of ALARA. MIP reconstructed images were created and reviewed. CONTRAST: Patient received OPTIRAY 320 119ML of IV contrast COMPARISON: No relevant prior studies available. FINDINGS: Pulmonary arteries: Unremarkable. No pulmonary embolism. Aorta: No acute findings. No thoracic aortic aneurysm. Lungs: Unremarkable. No mass. No consolidation. Pleural space: Unremarkable. No significant effusion. No pneumothorax. Heart: Unremarkable. No cardiomegaly. No significant pericardial effusion. No evidence of RV dysfunction. Bones/joints: No acute fracture. No dislocation. Soft tissues: Unremarkable. Lymph nodes: Unremarkable. No enlarged lymph nodes. IMPRESSION: No evidence of pulmonary emboli or acute cardio permanent process. Electronically signed by: Benton Mcdowell MD 09/20/24 00:07 AM
[2024-09-20] MEDS: SUCRALFATE 1 GM/10 ML UDC PO STA (00:13)
[2024-09-20] MEDS: FAMOTIDINE 20MG IV PUSH 20 MG/5 ML SYR IV STA (00:14)
--- NOTE | 2024-09-20 01:17 | History & Physical Report ---
Date of Service September 20, 2024 Assessment & Plan (1) Chest pain: Plan: 61-year-old female with history of coronary artery disease status post NSTEMI with stent to the RCA presenting with chest discomfort with radiation down her arms into her neck. Sensations are similar to when she had her NSTEMI. Workup thus far is negative. Troponin x 2 unremarkable, EKG with no acute ischemic changes admit to medical telemetry -Cardiology consultation appreciated; likely stress testing tomorrow Continue aspirin 81 mg p.o. every morning Continue lisinopril 20 mg p.o. every morning - continue metoprolol and Crestor (2) Sleep apnea: Plan: Chronic. Continue CPAP nightly (3) Hypothyroidism: Plan: Chronic. Patient with low TSH at 0.272 last checked 09/17/2024. She reports that her Synthroid has since been changed. Continues with 50 mcg p.o. every morning Continued outpatient monitoring of thyroid function tests (4) HTN (hypertension): Plan: Chronic. Stable. Continue lisinopril 20 mg p.o. every morning Continue metoprolol 50 mg p.o.p.o. She received this medication in the evening so should not interfere with tomorrow's stress testing Continue to monitor (5) CAD (coronary artery disease): Plan: Patient with known coronary artery disease Continue aspirin, rosuvastatin, lisinopril and metoprolol (6) Type 2 diabetes mellitus: Plan: Well-controlled. Last hemoglobin A1c 09/17/2024 = 5.2. Patient was previously on Mounjaro and recently had a dose increase. She reports she did not like how she felt on this medication so she has recently stopped taking it. Continue to monitor blood sugar Addition of insulin treatment for now History of Present Illness Chief Complaint: chest burning Primary Care Provider: Aram Howard MD Alisson Shabazz Is a 63-year-old female with history of coronary disease history of NSTEMI status post stent to the RCA, hypertension, diabetes, hypothyroid presenting with 2 to 3 weeks of intermittent chest discomfort. She reports episodes of burning across her chest with radiation into the arms and neck as well as tingling in her hands. These episodes have been occurring with increasing regularity over the last several weeks. Today her episodes were more severe and lasted longer for. They occur both at rest and with exertion. Reports similar presentation prior to her NSTEMI in the ER patient afebrile, hemodynamically stable. Allergies Allergy/AdvReac Type Severity Reaction Status Date / Time atorvastatin AdvReac Intermediate myalgia,art Verified 09/20/24 00:55 hralgia methylprednisolone AdvReac Intermediate elevated BP Verified 09/20/24 00:55 [From Medrol] semaglutide [From Ozempic] AdvReac Intermediate yeast Verified 09/20/24 00:55 infection empagliflozin AdvReac Mild yeast Verified 09/20/24 00:55 [From Jardiance] infection Home Medications Medication Instructions Recorded Confirmed Type lancets 33 gauge ([facility] #100 ea 02/27/21 06/28/24 Rx Lancets) cholecalciferol (vitamin D3) 50 50 mcg PO DAILY #90 caps 03/27/21 09/20/24 Rx mcg (2,000 unit) capsule aspirin 81 mg tablet,delayed 81 mg PO QAM #90 tabs 12/14/21 09/20/24 Rx release trazodone 50 mg tablet 50 mg PO DAILY PRN sleep #90 tabs 09/03/22 09/20/24 Rx CPAP Supplies #1 ea 10/16/22 06/28/24 Rx nitroglycerin 0.4 mg sublingual 0.4 mg sublingual Q5M PRN chest 06/04/23 09/20/24 Rx tablet pain #20 tabs blood sugar diagnostic ([facility] #100 ea 08/04/23 06/28/24 Rx Verio test strips) meloxicam 7.5 mg tablet 7.5 mg PO DAILY PRN Pain #90 tabs 10/27/23 09/20/24 Rx lisinopril 20 mg tablet 20 mg PO QAM #90 tabs 02/17/24 09/20/24 Rx metoprolol succinate 50 mg 50 mg PO PM #90 tabs 06/23/24 09/20/24 Rx tablet,extended release 24 hr allopurinol 100 mg tablet 100 mg PO QAM #90 tabs 07/20/24 09/20/24 Rx rosuvastatin 40 mg tablet 40 mg PO PM #90 tabs 08/02/24 09/20/24 Rx levothyroxine 50 mcg tablet 50 mcg PO QAM #30 tabs 09/17/24 09/20/24 Rx Past Med/Surg History Problem List Chest pain (Acute) Epigastric pain Colon cancer screening S/P right coronary artery (RCA) stent placement JOSE 11/19/2021- [facility] Sleep apnea Echocardiogram abnormal H/O: hysterectomy Hydronephrosis, left Low back pain Encounter for annual routine gynecological examination Subchondral cyst Left foot pain Calcification of coronary artery (Acute) Liver cyst Kidney cysts Hypothyroidism (Acute) Premature ventricular contractions (Acute) Recurrent periodic urticaria (Acute) Vitamin D deficiency disease (Acute) Health care maintenance HTN (hypertension) (Chronic) CAD (coronary artery disease) Type 2 diabetes mellitus NAFLD (nonalcoholic fatty liver disease) Gout Medical History Burning chest pain Interscapular pain High serum calcium Sleep disturbances Metabolic disorder Sleep apnea cpap Acute non-ST elevation myocardial infarction (NSTEMI) 2021 > 1 stent > [place] Postoperative thrombophlebitis resolved Morbid obesity Osteoarthritis Hypothyroidism Depression Anxiety PVC (premature ventricular contraction) takes metoprolol Hypertension follows w/ Kip Faviola History of COVID-19 09/08/2020 tested [facility], SOB muscle body ache, fatigue, cough, headaches, hair loss. Gait disturbance Surgical History History of cataract surgery right Hx of LASIK History of heart artery stent 2021 X 1 stent History of colonoscopy S/P laparoscopic hysterectomy complicated by ? cuff infection, SPT and yosvany septicemia H/O tooth extraction wisdom teeth Hx of cholecystectomy History of tubal ligation Family History Brother Stroke Diabetes Mother Diabetes Hypertension Rheumatoid arthritis Stroke Father Pulmonary embolism Denies family history of Ovarian cancer Prostate cancer Myocardial infarction Breast cancer Colorectal cancer Social History Smoking Status: Former smoker Tobacco Type: Cigarettes Second Hand Exposure: No; Do You Dip or Chew Tobacco: No; Hx Alcohol Use: No Hx Substance Use: No Preferred Language: [place] Zealander Communication Ability: Effective Visual Impairment: No Limitations Hearing Ability: Normal Fire Production Operator Required: No Beliefs That Will Affect Care: None marital status: Current Living Situation: Spouse current occupational status: employed current occupation: MANAGER DEPARTMENT, [employer] Feels Safe at Home: Yes Safety Concerns: Feels Safe At This Time Dental Care, Regularly: Yes Physical Activity Frequency: 1-2 Times per Week Seatbelt Use: always Assistive Devices: CPAP Review of Systems Review of Systems: All systems reviewed & are unremarkable except as noted in HPI & below Physical Exam Physical Exam: General: patient resting comfortably, NAD, non-toxic in appearance, AA&O x 4 Skin: warm, dry, intact, no rashes or lesions HEENT: NC/AT, PERRL, EOMI, anicteric sclera, conjunctiva without injection, external ear normal to inspection and nontender, nares patent, moist mucus membranes, dentition intact, no oropharyngeal lesions, neck supple, trachea midline, no LAD, no thyromegaly, no JVD Heart: +S1/S2, regular, 2/6 systolic ejection murmur left sternal border Lungs: equal air entry bilaterally, no rales/rhonchi/wheezes Abd: +BS, soft, NT/ND, no masses/organomegaly/ascites Ext: warm, 2+ pulses in UE/LE bilaterally, no clubbing/cyanosis or edema Neuro: nonfocal, patient AA&O x 4, speech intact, no facial droop, moving all extremities on command with equal strength 5/5 Results & Data Results & Data Vital Signs (Past 12 Hours) Vital Signs Temp Pulse Pulse Resp BP BP Pulse Ox 09/20/24 01:00 64 16 141/88 H 97 09/20/24 00:36 75 12 97 09/20/24 00:30 135/86 09/20/24 00:00 134/89 09/19/24 23:47 79 09/19/24 23:30 80 16 121/82 96 09/19/24 23:10 123/80 09/19/24 22:36 84 12 123/83 96 09/19/24 21:00 96 09/19/24 21:00 09/19/24 19:52 97 H 09/19/24 19:46 99 H 19 148/101 H 96 09/19/24 19:02 36.5 C 105 H 16 157/95 H 96 O2 Del Method 09/20/24 01:00 Room Air 09/20/24 00:36 09/20/24 00:30 09/20/24 00:00 09/19/24 23:47 09/19/24 23:30 Room Air 09/19/24 23:10 09/19/24 22:36 09/19/24 21:00 Room Air 09/19/24 21:00 Room Air 09/19/24 19:52 09/19/24 19:46 Room Air 09/19/24 19:02 Room Air Laboratory Results Laboratory Results WBC 9.47 K/ul (4.8-10.8) 09/19/24 19:10 RBC 4.93 M/uL (4.20-5.40) 09/19/24 19:10 Hgb 14.9 g/dl (12.0-16.0) 09/19/24 19:10 Hct 42.5 % (37.0-47.0) 09/19/24 19:10 MCV 86.2 fL (80.0-100.0) 09/19/24 19:10 MCH 30.2 pg (25.0-34.0) 09/19/24 19:10 MCHC 35.1 g/dL (32.0-36.0) 09/19/24 19:10 RDW Std Deviation 40.5 fL (36.4-46.3) 09/19/24 19:10 RDW Coeff of Carlyn 13.2 % (11.5-14.5) 09/19/24 19:10 Plt Count 192 K/uL (130-400) 09/19/24 19:10 MPV 10.6 fL (9.4-12.4) 09/19/24 19:10 Immature Gran % (Auto) 0.4 % 09/19/24 19:10 Neut % (Auto) 56.7 % 09/19/24 19:10 Lymph % (Auto) 32.0 % 09/19/24 19:10 [place] % (Auto) 9.3 % 09/19/24 19:10 Eos % (Auto) 1.0 % 09/19/24 19:10 Baso % (Auto) 0.6 % 09/19/24 19:10 Neut # (Auto) 5.37 K/uL (1.40-6.50) 09/19/24 19:10 Lymph # (Auto) 3.03 K/uL (1.20-3.40) 09/19/24 19:10 [place] # (Auto) 0.88 K/uL (0.11-0.59) H 09/19/24 19:10 Eos # (Auto) 0.09 K/uL (0.00-0.50) 09/19/24 19:10 Baso # (Auto) 0.06 K/uL (0.00-0.20) 09/19/24 19:10 Immature Gran # (Auto) 0.04 K/uL (0.01-0.20) 09/19/24 19:10 PT 10.9 Seconds (9.0-12.0) 09/19/24 19:10 INR 1.0 (0.9-1.1) 09/19/24 19:10 APTT 26 Seconds (21-31) 09/19/24 19:10 PTT Ratio 1.0 09/19/24 19:10 Sodium 142 mmol/L (136-145) 09/19/24 19:10 Potassium 4.2 mmol/L (3.5-5.1) 09/19/24 19:10 Chloride 108 mmol/L (98-107) H 09/19/24 19:10 Carbon Dioxide 29 mmol/L (21-32) 09/19/24 19:10 Anion Gap 5 (3-11) 09/19/24 19:10 BUN 19 mg/dl (6-23) 09/19/24 19:10 Creatinine 0.68 mg/dl (0.6-1.2) 09/19/24 19:10 Est Cr Clr Drug Dosing 87.2 ml/min 09/19/24 19:10 eGFR 98.41 09/19/24 19:10 BUN/Creatinine Ratio 27.9 (10-20) H 09/19/24 19:10 Glucose 99 mg/dl (70-99(Fasting)) 09/19/24 19:10 Calcium 10.1 mg/dl (8.6-10.3) 09/19/24 19:10 Total Bilirubin 0.7 mg/dl (0.2-1.0) 09/19/24 19:10 AST 22 U/L (13-39) 09/19/24 19:10 ALT 26 U/L (7-52) 09/19/24 19:10 Alkaline Phosphatase 80 U/L (34-104) 09/19/24 19:10 Troponin I High Sens 4.8 pg/ml (0-14) 09/19/24 22:29 Total Protein 7.2 gm/dl (6.0-8.3) 09/19/24 19:10 Albumin 4.4 gm/dl (3.4-5.0) 09/19/24 19:10 Globulin 2.8 gm/dl (2.5-4.0) 09/19/24 19:10 Albumin/Globulin Ratio 1.6 (0.9-2) 09/19/24 19:10 Impressions Chest X-Ray 09/19/24 19:05 Exam(s): XR CXR 1 VIEW EXAM: XR Chest, 1 View CLINICAL HISTORY: Reason for exam: Chest pain, nonspecific. TECHNIQUE: Frontal view of the chest. COMPARISON: November 16, 2021. FINDINGS: Lungs: Unremarkable. No acute infiltration, atelectasis or mass. Pleural space: Unremarkable. No pneumothorax or pleural fluid. Heart: Unremarkable. No cardiomegaly. Mediastinum: Unremarkable. Normal mediastinal contour. Bones/joints: Extensive degenerative spur formation in the thoracic spine. No acute bone abnormality. IMPRESSION: No acute findings in the chest. Electronically signed by: Benton Mcdowell MD 09/19/24 23:50 PM Chest CTA 09/19/24 21:37 Exam(s): CTA CHEST W/WO Contrast IV Amt: OPTIRAY 320 119ML EXAM: CT Angiography Chest Without and With Intravenous Contrast CLINICAL HISTORY: Reason for exam: chest pain, back pain. TECHNIQUE: Axial computed tomographic angiography images of the chest without and with intravenous contrast. CTDI is 28.03 mGy and DLP is 877.02 mGy-cm. Automated exposure control was utilized for the study. A dose lowering technique was utilized adhering to the principles of ALARA. MIP reconstructed images were created and reviewed. CONTRAST: Patient received OPTIRAY 320 119ML of IV contrast COMPARISON: No relevant prior studies available. FINDINGS: Pulmonary arteries: Unremarkable. No pulmonary embolism. Aorta: No acute findings. No thoracic aortic aneurysm. Lungs: Unremarkable. No mass. No consolidation. Pleural space: Unremarkable. No significant effusion. No pneumothorax. Heart: Unremarkable. No cardiomegaly. No significant pericardial effusion. No evidence of RV dysfunction. Bones/joints: No acute fracture. No dislocation. Soft tissues: Unremarkable. Lymph nodes: Unremarkable. No enlarged lymph nodes. IMPRESSION: No evidence of pulmonary emboli or acute cardio permanent process. Electronically signed by: Benton Mcdowell MD 09/20/24 00:07 AM ECG Additional Comments: EKG was normal sinus rhythm at 97 bpm, age-indeterminate anterior infarct. No acute ischemic changes present PG Care Time/CCT Total # of Minutes Spent Total Time Spent with Patient: Total time spent is greater than 50% in coordination of care (as documented) at patient's floor/unit and/or counseling patient: Coding Level of Care Code 91588 INT INP/OBS CARE 3/75MIN Diagnoses Chest pain R07.9 Sleep apnea G47.30 Hypothyroidism E03.9 Primary hypertension I10 Hypertension type: primary hypertension Coronary artery disease involving j[place] coronary artery of jena heart, unspecified whether angina present I25.10 Coronary Disease-Associated Artery/Lesion type: [place] artery [place] vs. transplanted heart: jena heart Associated angina: unspecified whether angina present Type 2 diabetes mellitus E11.9 (4) HTN (hypertension) Hypertension type: primary hypertension Qualified Code(s): I10 - Essential (primary) hypertension (5) CAD (coronary artery disease) Coronary Disease-Associated Artery/Lesion type: [place] artery [place] vs. transplanted heart: [place] heart Associated angina: unspecified whether angina present Qualified Code(s): I25.10 - Atherosclerotic heart disease of j[place] coronary artery without angina pectoris
[2024-09-20] MEDS: ACETAMINOPHEN 325 MG TAB PO STA (01:32)
[2024-09-20] MEDS ORDERED: traZODone HCL 50 MG TAB PO PRN (02:17)
[2024-09-20] MEDS ORDERED: MELOXICAM 7.5 MG TAB PO PRN (02:17)
[2024-09-20] MEDS ORDERED: ONDANSETRON INJ 2 MG/ML 2 ML VIAL IV PRN (02:17)
[2024-09-20] MEDS ORDERED: NITROGLYCERIN SL 0.4 MG/TAB TAB SL PRN (02:17)
[2024-09-20] MEDS ORDERED: ACETAMINOPHEN 325 MG TAB PO PRN (02:17)
[2024-09-20 05:22] VITALS: RESP 18
[2024-09-20] MEDS: LEVOTHYROXINE SODIUM 50 MCG TABLET PO SCH (05:45)
[2024-09-20] MEDS ORDERED: GLUCOSE 40% GEL 15 GM TUBE PO PRN (05:58)
[2024-09-20] MEDS ORDERED: GLUCOSE 10 TAB/TUBE PO PRN (05:58)
[2024-09-20] MEDS ORDERED: GLUCAGON FOR INJ 1 MG VIAL SQ PRN (05:58)
[2024-09-20] MEDS ORDERED: DEXTROSE 50% 50 ML SYRINGE IV PRN (05:58)
[2024-09-20] MEDS ORDERED: CARBOHYDRATES FOR HYPOGLYCEMIA PO PRN (05:58)
[2024-09-20] MEDS: lisinopril 20 MG TAB PO SCH (08:27)
[2024-09-20] MEDS: LORazepam 2 MG/1 ML VIAL IV STA (08:56)
[2024-09-20] MEDS: SODIUM CHLORIDE 0.9% 1,000 ML IV SCH (09:05)
[2024-09-20] MEDS: ASPIRIN 81 MG ECTAB PO SCH (09:10)
[2024-09-20] MEDS: allopurinoL 100 MG TAB PO SCH (09:10)
--- NOTE | 2024-09-20 09:23 | Electrocardiogram Report ---
Test Reason : Blood Pressure : */* mmHG Vent. Rate : 64 BPM Atrial Rate : 64 BPM P-R Int : 180 ms QRS Dur : 90 ms QT Int : 424 ms P-R-T Axes : 15 -9 -6 degrees QTcB Int : 437 ms Normal sinus rhythm Moderate voltage criteria for LVH, may be normal variant Borderline ECG When compared with ECG of 19-Sep-2024 19:06, Vent. rate has decreased by 33 bpm PRWP no longer present Confirmed by Apollo Howard ([id number]) on 09/20/2024 9:22:43 AM Referred By: REFERRED SELF Confirmed By: Apollo Howard
--- NOTE | 2024-09-20 09:23 | Electrocardiogram Report ---
Test Reason : Blood Pressure : */* mmHG Vent. Rate : 97 BPM Atrial Rate : 97 BPM P-R Int : 178 ms QRS Dur : 82 ms QT Int : 342 ms P-R-T Axes : 15 -15 32 degrees QTcB Int : 434 ms Poor data quality, interpretation may be adversely affected Normal sinus rhythm Minimal voltage criteria for LVH, may be normal variant ( R in aVL ) Poor R wave progression, consider anterior [place] vs. lead placement vs. LVH Abnormal ECG When compared with ECG of 16-Nov-2021 18:34, Criteria for Inferior infarct are no longer Present Nonspecific T wave abnormality has replaced inverted T waves in Inferior leads Confirmed by Apollo Howard ([id number]) on 09/20/2024 9:23:24 AM Referred By: REFERRED SELF Confirmed By: Apollo Howard
[2024-09-20] MEDS ORDERED: LORazepam 2 MG/1 ML VIAL IV PRN (09:37)
--- NOTE | 2024-09-20 11:24 | Cardiology Consultation ---
Date of Consultation September 20, 2024 Assessment & Plan (1) Chest pain: (2) S/P right coronary artery (RCA) stent placement: (3) CAD (coronary artery disease): (4) GERD (gastroesophageal reflux disease): Plan 63-year-old woman with multiple vascular risk factors noting intermittent "burning" chest discomfort at rest but not with activity. Due to the atypical nature of her pain and previously negative stress study earlier this year (November 2023), after serial normal ECG and enzymes, proceeded with stress echocardiogram which showed no ischemia by symptom, ECG, or echocardiographic criteria. Suspect her symptoms are due to acid reflux, cannot explain why she had identical symptoms prior to her non-STEMI which resolved, but there is no current indication of ongoing myocardial ischemia. Recommend proton pump inhibitor, she does use Tums intermittently, but would benefit from a longer acting agent. In the absence of evidence for myocardial ischemia, would not restart long- acting nitrate, since this could exacerbate gastroesophageal reflux. She follows routinely with Dr. All Flores, recommend routine follow-up with him in 1 to 2 months. History of Present Illness Reason for Consultation: Stress test Requesting Physician: Benton Oscar MD Attending Physician: Benton Oscar MD History of Present Illness 46-hgum-goe-year-old woman with multiple vascular risk factors (DM, HTN, dysl ipidemia, obesity, sleep apnea) and known CAD (NSTEMI/intracoronary lithotripsy/JOSE 2021, remaining 90% small apical LAD) who was admitted 09/19/2024 after reporting several weeks of "burning" chest discomfort rating to her arms, similar to symptoms she experienced prior to her non-STEMI. She does have a history of GERD/reflux and her burning symptoms occur at rest and not during activity. She described similar symptoms earlier this year and underwent a stress echocardiogram which showed no ischemia at a modest workload but above target heart rate. She was on isosorbide for a time and felt that it had helped her symptoms, but ultimately this was discontinued. She states that she had identical burning symptoms prior to her NSTEMI and that they resolved after revascularization. She denies any diaphoresis, dyspnea, palpitations, presyncope, or syncope. She has been gradually losing weight on Mounjaro, but due to nonspecific nausea type symptoms as well as possibly increasing her burn ing sensation, she stopped this medication recently. Her burning symptoms resolved last evening but recurred this morning, she had them this morning at the time my evaluation, ECG was unremarkable. Troponin x 2 normal. After discussion of risks and benefits, she was felt to have a low likelihood of her symptoms representing an acute coronary syndrome and she proceeded to stress echocardiogram. She walked for 3-1/2 minutes on a Andry protocol achieving 90% maximum predicted heart rate, no burning sensation or chest discomfort, moderately hypertensive but appropriate heart rate response, no ECG changes, no echocardiographic abnormalities pre or post stress. Allergies Allergy/AdvReac Type Severity Reaction Status Date / Time atorvastatin AdvReac Intermediate myalgia,art Verified 09/20/24 00:55 hralgia methylprednisolone AdvReac Intermediate elevated BP Verified 09/20/24 00:55 [From Medrol] semaglutide [From Ozempic] AdvReac Intermediate yeast Verified 09/20/24 00:55 infection empagliflozin AdvReac Mild yeast Verified 09/20/24 00:55 [From Jardiance] infection Home Medications Medication Instructions Recorded Confirmed Type lancets 33 gauge ([facility] 02/27/21 06/28/24 Rx Lancets) cholecalciferol (vitamin D3) 50 50 mcg PO DAILY #90 caps 03/27/21 09/20/24 Rx mcg (2,000 unit) capsule aspirin 81 mg tablet,delayed 81 mg PO QAM #90 tabs 12/14/21 09/20/24 Rx release trazodone 50 mg tablet 50 mg PO DAILY PRN sleep #90 tabs 09/03/22 09/20/24 Rx CPAP Supplies #1 ea 10/16/22 06/28/24 Rx nitroglycerin 0.4 mg sublingual 0.4 mg sublingual Q5M PRN chest 06/04/23 09/20/24 Rx tablet pain #20 tabs blood sugar diagnostic ([facility] #100 ea 08/04/23 06/28/24 Rx Verio test strips) meloxicam 7.5 mg tablet 7.5 mg PO DAILY PRN Pain #90 tabs 10/27/23 09/20/24 Rx lisinopril 20 mg tablet 20 mg PO QAM #90 tabs 02/17/24 09/20/24 Rx metoprolol succinate 50 mg 50 mg PO PM #90 tabs 06/23/24 09/20/24 Rx tablet,extended release 24 hr allopurinol 100 mg tablet 100 mg PO QAM #90 tabs 07/20/24 09/20/24 Rx rosuvastatin 40 mg tablet 40 mg PO PM #90 tabs 08/02/24 09/20/24 Rx levothyroxine 50 mcg tablet 50 mcg PO QAM #30 tabs 09/17/24 09/20/24 Rx Patient History Medical History Burning chest pain Interscapular pain High serum calcium Sleep disturbances Metabolic disorder Sleep apnea cpap Acute non-ST elevation myocardial infarction (NSTEMI) 2021 > 1 stent > [place] Postoperative thrombophlebitis resolved Morbid obesity Osteoarthritis Hypothyroidism Depression Anxiety PVC (premature ventricular contraction) takes metoprolol Hypertension follows w/ Kip Faviola History of COVID-19 09/08/2020 tested [facility], SOB muscle body ache, fatigue, cough, headaches, hair loss. Gait disturbance Surgical History History of cataract surgery right Hx of LASIK History of heart artery stent 2021 X 1 stent History of colonoscopy S/P laparoscopic hysterectomy complicated by ? cuff infection, SPT and yosvany septicemia H/O tooth extraction wisdom teeth Hx of cholecystectomy History of tubal ligation Family History Brother Stroke Diabetes Mother Diabetes Hypertension Rheumatoid arthritis Stroke Father Pulmonary embolism Denies family history of Ovarian cancer Prostate cancer Myocardial infarction Breast cancer Colorectal cancer Social History Smoking Status: Former smoker Tobacco Type: Cigarettes Second Hand Exposure: No; Do You Dip or Chew Tobacco: No; Hx Alcohol Use: No Hx Substance Use: No Preferred Language: Czech Communication Ability: Effective Visual Impairment: No Limitations Hearing Ability: Normal 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 BP normotensive. Pulse 60 bpm and regular. Respirations 18 unlabored. Skin: no ecchymoses or generalized lesions. HEENT: unremarkable. Neck: JVP at the clavicle at 90 degrees, no carotid bruits. Lungs: clear. Cardiac: regular rhythm, normal S1-2, no murmur. Abdomen: benign. Extremities: no edema, pulses intact. Neurologic: normal affect and conversation, nonfocal. Results & Data Laboratory Results Troponin negative x 2. Normal electrolytes, BUN 19, creatinine 0.68. Normal CBC. Diagnostic Findings ECG x 2 unremarkable, sinus rhythm with isoelectric ST segments. Chest x-ray and chest CT unremarkable, no pulmonary embolism. PG Care Time/CCT Total # of Minutes Spent Total Time Spent with Patient: Total time spent is greater than 50% in coordination of care (as documented) at patient's floor/unit and/or counseling patient: Coding Level of Care Code 74610 IN/OBS CONSULT LVL 4,60M Diagnoses Chest pain R07.9 S/P right coronary artery (RCA) stent placement Z95.5 Coronary artery disease involving [place] coronary artery of [place] heart, unspecified whether angina present I25.10 Coronary Disease-Associated Artery/Lesion type: [place] artery [place] vs. transplanted heart: [place] heart Associated angina: unspecified whether angina present GERD (gastroesophageal reflux disease) K21.9 (3) CAD (coronary artery disease) Coronary Disease-Associated Artery/Lesion type: [place] artery [place] vs. transplanted heart: [place] heart Associated angina: unspecified whether angina present Qualified Code(s): I25.10 - Atherosclerotic heart disease of [place] coronary artery without angina pectoris
[2024-09-20 11:53] VITALS: TEMP 98.2; O2SAT 95
--- NOTE | 2024-09-20 12:31 | Discharge Summary ---
Discharge Summary Date of Service September 20, 2024 Principal Dx & Hospital Course #1 = Principal Diagnosis (1) Chest pain: Atypical. No evidence of acute coronary syndrome. She has been seen by cardiology who feels her chest pain etiology is probably GERD. She has been started on Protonix. She will be discharged home today, September 20 (2) Sleep apnea: Stable. Continue CPAP nightly (3) Hypothyroidism: Stable. Continue current thyroid replacement. (4) HTN (hypertension): Stable. She takes lisinopril and metoprolol chronically. (5) CAD (coronary artery disease): Stable. Continue aspirin, rosuvastatin, lisinopril and metoprolol (6) Type 2 diabetes mellitus: Stable. ADA diet. Last hemoglobin A1c 09/17/2024 = 5.2. Sliding scale coverage if needed. Resume usual diabetic therapy at discharge Plan Home today, September 20, on Protonix daily Admission HPI Per Admitting Provider Alisson Shabazz Is a 63-year-old female with history of coronary disease history of NSTEMI status post stent to the RCA, hypertension, diabetes, hypothyroid presenting with 2 to 3 weeks of intermittent chest discomfort. She reports episodes of burning across her chest with radiation into the arms and neck as well as tingling in her hands. These episodes have been occurring with increasing regularity over the last several weeks. Today her episodes were more severe and lasted longer for. They occur both at rest and with exertion. Reports similar presentation prior to her NSTEMI in the ER patient afebrile, hemodynamically stable. Discharge Exam General-alert and oriented x3, no fever, no chills HEENT-head atraumatic and normocephalic, pupils equal and reactive to light, extraocular muscles intact Neck-no lymphadenopathy or thyromegaly, trachea midline Chest-clear to auscultation. No rales, wheezing or rhonchi Cardiac-regular rate and rhythm, normal S1 and S2 Abdomen-normal bowel sounds, no hepatosplenomegaly Extremities-no cyanosis, clubbing, or edema Neuro-cranial nerves II through XII intact, motor and sensory function within normal limits, strength symmetrical, no focal deficits Psych-normal affect, normal mood Discharge Plan Discharge Items Patient Disposition: Home - Self-Care Reason For Visit: CHEST PAIN Discharge Diagnosis: Atypical chest pain, suspected GERD Activity: Resume your previous activity Non-emergency contact: Primary Care Provider Call non-emergency contact if: your symptoms worsen Follow-up/Referrals: Aram Howard MD [Primary Care Provider] - Diet: Carb Consistent or DM2 and Heart Healthy Addtl Attending Provider Instructions: Take Protonix 40 mg once a day to suppress stomach acid. A prescription has been sent to the pharmacy at [facility] in [place] Pending Studies at Discharge: No Stand-Alone Forms: My [facility], Smoking Cessation Medications and DC Order Prescriptions: New pantoprazole 40 mg Tablet,Delayed Release (Dr/Ec) 40 mg PO QAM Qty: 30 0RF Continued cholecalciferol (vitamin D3) 50 mcg (2,000 unit) capsule 50 mcg PO DAILY Qty: 90 3RF Rx Instructions: with heaviest meal of the day aspirin 81 mg tablet,delayed release (DR/EC) 81 mg PO QAM Qty: 90 3RF trazodone 50 mg tablet 50 mg PO DAILY PRN (Reason: sleep) Qty: 90 3RF nitroglycerin 0.4 mg tablet, sublingual 0.4 mg sublingual Q5M PRN (Reason: chest pain) Qty: 20 0RF Rx Instructions: do not exceed 3 doses per episode (DME) OneTouch Verio test strips Strip See Rx Instructions .ROUTE .MEDSUPPLY Qty: 100 1RF Rx Instructions: Test once daily meloxicam 7.5 mg tablet 7.5 mg PO DAILY PRN (Reason: Pain) Qty: 90 1RF Rx Instructions: with food lisinopril 20 mg tablet 20 mg PO QAM Qty: 90 3RF metoprolol succinate 50 mg tablet extended release 24 hr 50 mg PO PM Qty: 90 1RF allopurinol 100 mg tablet 100 mg PO QAM Qty: 90 3RF rosuvastatin 40 mg tablet 40 mg PO PM Qty: 90 3RF levothyroxine 50 mcg tablet 50 mcg PO QAM Qty: 30 1RF (DME) CPAP Supplies Misc .Route Qty: 1 0RF Rx Instructions: Please fit patient for [employer]ear hybrid mask, DME Care Plus oxygen (DME) lancets [OneTouch Delica Lancets] 33 gauge misc See Rx Instructions .ROUTE .MEDSUPPLY Qty: 100 1RF Rx Instructions: As directed Discharge Orders: Discharge Order (Routine); Ordered 09/20/24 Ordered By: Benton Oscar Admission Data Admit Date/Time: 09/20/24 00:58 Attending Provider: Benton Oscar Admit Provider: Delores Sampson Primary Care Provider: Aram Howard V. Other Providers: Apollo Howard; Delores Sampson Hospital Stay Data Consultations 09/20/24 00:23 ED Decision to Admit Stat 09/20/24 00:58 Consult Cardiology Routine Diagnostic Imagining Performed 09/19/24 21:37 CT angio chest dissec wo/w con Stat Pending Results Patient Have Any Pending Studies at Discharge: No Discharge Instructions Given to Patient (Per Discharging Provider) Take Protonix 40 mg once a day to suppress stomach acid. A prescription has been sent to the pharmacy at [facility] in [place] Total Time Total Time Spent Total Time Spent (In Minutes): 50 minutes Coding Level of Care Code 34871 INP/OBS DISCH >30 MIN Diagnoses Chest pain R07.9 Sleep apnea G47.30 Hypothyroidism E03.9 Primary hypertension I10 Hypertension type: primary hypertension Coronary artery disease involving [place] coronary artery of [place] heart, unspecified whether angina present I25.10 Coronary Disease-Associated Artery/Lesion type: [place] artery [place] vs. transplanted heart: [place] heart Associated angina: unspecified whether angina present Type 2 diabetes mellitus E11.9
[2024-09-20] MEDS: PANTOprazole 40 MG TAB PO SCH (13:56)
[2024-09-20 14:02] VITALS: BP 127/83; PULSE 60
--- NOTE | 2024-09-20 15:32 | XCELERA ---
[id number] \\[id number]
[2024-09-20] MEDS ORDERED: METOPROLOL SUCC 50MG EXT REL TAB PO SCH (21:00)
[2024-09-20] MEDS ORDERED: ROSUVASTATIN CALCIUM 20 MG TAB PO SCH (21:00)
== END 2024-09-20 14:12 | disposition home or self-care (01) | DRG 392 ==
LOC: ED 18:57 → SUATTDRO 09-20 00:58 → 2N 09-20 00:58